=== PATIENT | female | born 1990 | race Caucasian/White ===

== ENCOUNTER 2021-09-10 11:17 | Observation (INO) | payer OTHER, SELFPAY ==
[2021-09-10 11:38] VITALS: BP 135/85; PULSE 54; RESP 18; TEMP 37.2; O2SAT 97; BMI 36.0
[2021-09-10 12:58] LABS: MANUAL DIFF FLAG NO
[2021-09-10 13:01] LABS: Basophils Percent Auto 0.2 % (0-2); Hematocrit 43.3 % (37-47); Hemoglobin 14.7 g/dl (12.0-16.0); Imm Gran Abs Auto 0.05 X10*3/uL (0.00-0.03); Imm Gran Pct Auto 0.3 % (0.0-0.4); Lymphocytes Absolute Auto 2.3 X10*3/uL (1.2-4.9); Lymphocytes Percent Auto 15.9 % (20-40); Mean Corpuscular HGB Conc 33.9 g/dl (31.0-35.0); Mean Corpuscular Hemoglobin 29.4 pg (27.0-33.0); Mean Corpuscular Volume 86.6 fL (80-98); Mean Platelet Volume 11.6 fL (9.4-12.3); Monocytes Absolute Auto 0.9 X10*3/uL (0.1-1.2); Monocytes Percent Auto 6.5 % (2-11); Neutrophils Absolute Auto 11.2 X10*3/uL (2.0-8.3); Neutrophils Percent Auto 77.1 % (45-73); Platelet Count 321 X10*3/uL (160-400); Red Cell Distribution Width 13.2 % (11.0-16.0); White Blood Count 14.5 X10*3/uL (4.8-10.8)
--- NOTE | 2021-09-10 13:04 | ED.NAVMDI ---
HPI - Nausea/Vomiting/Diarrhea General Chief complaint: Nausea/Vomiting/Diarrhea Stated complaint: vomiting, ?uti Time Seen by Provider: 09/10/21 13:02 Source: patient and family (Significant other's) Mode of arrival: ambulatory Limitations: no limitations History of Present Illness HPI Narrative: 31-year-old female came in for evaluation of vomiting for 1 day. Symptoms started with frequency and dysuria, patient treated herself with [id number] medication, UTI symptoms improved then next day patient started feel vomiting, patient has been vomiting for 1 day unable to keep any food or water down, patient declined abdominal pain except for mild epigastric pain only during vomiting, patient also declined fever, diarrhea, headache, photophobia, or chest pain. No sick contacts, no recent travel. Related Data Previous Rx's Medication Instructions Recorded cefuroxime axetil 500 mg tablet 500 mg PO BID #20 tab 09/10/21 ondansetron HCl 4 mg tablet 4 mg PO Q8H PRN #10 tab 09/10/21 (Zofran) Allergies Allergy/AdvReac Type Severity Reaction Status Date / Time No Known Allergies Allergy Unverified 09/10/21 11:38 Review of Systems Review of Systems: All other systems are reviewed and are negative Constitutional: Reports as per HPI and Reports no additional constitutional complaints Eyes: Reports as per HPI and Reports no additional eye complaints Reports system reviewed and no additional complaints, except as documented Cardiovascular: Reports as per HPI and Reports no additional cardiovascular complaints Respiratory: Reports as per HPI and Reports no additional respiratory complaints Gastrointestinal: Reports as per HPI and Reports no additional gastrointestinal complaints Genitourinary: Reports no additional female genitourinary complaints Musculoskeletal: Reports no additional musculoskeletal complaints Skin/Breast: Reports system reviewed and no additional complaints, except as docu Psychiatric: Reports no additional psychiatric complaints Endocrine: Reports no additional endocrine complaints Hematologic/Lymphatic: Reports no additional hematologic/lymphatic complaints Allergic/Immunologic: Reports no additional allergic/immunologic complaints Reports system reviewed and no additional complaints, except as documented and Reports Abnormal speech present [facility] Social History Social History Advance Directives: No Advance Directives Information Provided: No Patient : No Physical Exam Vital Signs: Vital Signs: Last Vital Signs Temp 98.3 F 09/10/21 13:47 Pulse 80 09/10/21 13:47 Resp 16 09/10/21 13:47 BP 155/84 H 09/10/21 13:47 Pulse Ox 99 09/10/21 13:47 Body Mass Index 36.0 Vital signs have been reviewed as appeared to be correct. Blood pressure normal. Heart rate normal. Respiration rate normal. Temperature normal. Oxygen saturation normal. Appearance: Alert. Oriented X3. No acute distress. Head: Normal external exam. Normocephalic. Atraumatic. No Montoya signs noted. No raccoon eyes noted Eyes: PERRLA. EOMI. Conjunctiva and sclera normal. Eyelids normal. ENT: TM's Normal. Pharynx normal. Uvula midline. Dry mucous membranes. No trismus noted. No drooling noted. No muffled voice noted. Neck: Normal inspection. Neck supple. FROM. No adenopathy. Thyroid Normal. No meningeal signs. No neck mass noted. CVS: Normal heart rate and rhythm. Heart sound normal. No murmurs noted. Pulses normal throughout. Respiratory: No respiratory distress. Painless inspiration. Breath sounds normal. No wheezes/rales/rhonchi noted. Chest nontender. No accessory muscle usage noted or decreased air movement noted. Abdomen: Soft and nontender. Bowel sounds normal in all 4 quadrants. No distention noted. No organomegaly noted. No visible injury noted. Back: No CVA tenderness. Full range of motion noted. Skin: Skin warm and dry. Normal skin color. Normal skin turgor. No rashes/lesions/lacerations noted. Extremities: No lower extremity edema. Extremities exhibit normal range of motion. Extremities nontender. Neuro: Oriented X 3. Cranial nerve exam: II-XII are grossly intact No motor deficit. No sensory deficit. Reflexes normal. Course Course Course Narrative: Assessment and plan. 31-year-old female came in for vomiting for 1 day, patient been having symptoms of UTI for 1 week past without treatment, UA is consistent with UTI, patient has no abdominal pain, no flank pain to suggest pyelonephritis, nausea and vomiting is partially improved after multiple doses of antiemetic in the ED and IV hydration, able to tolerate p.o. challenge now. Will discharge the patient with antinausea medication and antibiotic. Reevaluation(s) Reevaluation #1: After patient felt slightly better patient started to vomit again in the ED unable to tolerate p.o. intake, patient needs antibiotic for UTI will start on ceftriaxone IV, patient is not meeting sepsis criteria. Time: 15:35 MDM - Nausea/Vomiting/Diarrhea Lab Data Attestation: I reviewed the patient's lab results. Result diagrams: 09/10/21 12:54 09/10/21 12:54 Labs: Lab Results 09/10/21 09/10/21 09/10/21 Range/Units 12:54 12:54 14:15 WBC 14.5 H (4.8-10.8) X10*3/uL RBC 5.00 (4.20-5.50) X10*6/uL Hgb 14.7 (12.0-16.0) g/dl Hct 43.3 (37-47) % MCV 86.6 (80-98) fL MCH 29.4 (27.0-33.0) pg MCHC 33.9 (31.0-35.0) g/dl RDW 13.2 (11.0-16.0) % Plt Count 321 (160-400) X10*3/uL MPV 11.6 (9.4-12.3) fL Immature Gran % (Auto) 0.3 (0.0-0.4) % Neut % (Auto) 77.1 H (45-73) % Lymph % (Auto) 15.9 L (20-40) % [place] % (Auto) 6.5 (2-11) % Eos % (Auto) 0.0 (0-4) % Baso % (Auto) 0.2 (0-2) % Lymph # (Auto) 2.3 (1.2-4.9) X10*3/uL [place] # (Auto) 0.9 (0.1-1.2) X10*3/uL Eos # (Auto) 0.0 (0.0-0.4) X10*3/uL Baso # (Auto) 0.0 (0.0-0.2) X10*3/uL Abs Immat Gran (auto) 0.05 H (0.00-0.03) X10*3/uL Absolute Neuts (auto) 11.2 H (2.0-8.3) X10*3/uL Absolute Nucleated RBC 0.000 (0.0-0.012) X10*3/uL Nucleated RBC % (auto) 0.0 (0.0-0.2) /100WBC Sodium 137 (135-145) mmol/L Potassium 3.7 (3.3-5.1) mmol/L Chloride 102 (96-108) mmol/L Carbon Dioxide 21 L (22-29) mmol/L Anion Gap 18 (12-20) BUN 15 (9-16) mg/dL Creatinine 0.98 (0.5-1.4) mg/dL Estim Creat Clear Calc 93.1 Estimated GFR > 60 Random Glucose 113 (60-115) mg/dL Calcium 10.1 (8.4-10.2) mg/dL Total Bilirubin 0.9 (0.0-1.0) mg/dL Direct Bilirubin 0.3 (0.0-0.5) mg/dL AST 15 (5-31) U/L ALT 15 (0-31) U/L Alkaline Phosphatase 100 (39-117) U/L Total Protein 8.5 H (6.5-8.0) g/dL Albumin 5.2 H (3.5-5.0) g/dL Lipase 26 (8-78) U/L Urine Color YELLOW Urine Appearance CLEAR Urine pH 6.0 (5.0-8.0) Ur Specific [place] 1.020 (1.005-1.025) Urine Protein 1+ H (NEG-TRACE) MG/DL Urine Glucose (UA) NEG (NEG) MG/DL Urine Ketones 15 (NEG) MG/DL Urine Blood NEG (NEG) Urine Nitrite POS H (NEG) Ur Leukocyte Esterase TRACE H (NEG) Urine RBC 1-4 (0) /HPF Urine WBC 15-29 H (0-4) /HPF Ur Squamous Epith Cells 2+ /LPF Urine Bacteria 2+ /LPF Urine Test (NEGATIVE) 09/10/21 Range/Units 14:15 WBC (4.8-10.8) X10*3/uL RBC (4.20-5.50) X10*6/uL Hgb (12.0-16.0) g/dl Hct (37-47) % MCV (80-98) fL MCH (27.0-33.0) pg MCHC (31.0-35.0) g/dl RDW (11.0-16.0) % Plt Count (160-400) X10*3/uL MPV (9.4-12.3) fL Immature Gran % (Auto) (0.0-0.4) % Neut % (Auto) (45-73) % Lymph % (Auto) (20-40) % [place] % (Auto) (2-11) % Eos % (Auto) (0-4) % Baso % (Auto) (0-2) % Lymph # (Auto) (1.2-4.9) X10*3/uL [place] # (Auto) (0.1-1.2) X10*3/uL Eos # (Auto) (0.0-0.4) X10*3/uL Baso # (Auto) (0.0-0.2) X10*3/uL Abs Immat Gran (auto) (0.00-0.03) X10*3/uL Absolute Neuts (auto) (2.0-8.3) X10*3/uL Absolute Nucleated RBC (0.0-0.012) X10*3/uL Nucleated RBC % (auto) (0.0-0.2) /100WBC Sodium (135-145) mmol/L Potassium (3.3-5.1) mmol/L Chloride (96-108) mmol/L Carbon Dioxide (22-29) mmol/L Anion Gap (12-20) BUN (9-16) mg/dL Creatinine (0.5-1.4) mg/dL Estim Creat Clear Calc Estimated GFR Random Glucose (60-115) mg/dL Calcium (8.4-10.2) mg/dL Total Bilirubin (0.0-1.0) mg/dL Direct Bilirubin (0.0-0.5) mg/dL AST (5-31) U/L ALT (0-31) U/L Alkaline Phosphatase (39-117) U/L Total Protein (6.5-8.0) g/dL Albumin (3.5-5.0) g/dL Lipase (8-78) U/L Urine Color Urine Appearance Urine pH (5.0-8.0) Ur Specific [place] (1.005-1.025) Urine Protein (NEG-TRACE) MG/DL Urine Glucose (UA) (NEG) MG/DL Urine Ketones (NEG) MG/DL Urine Blood (NEG) Urine Nitrite (NEG) Ur Leukocyte Esterase (NEG) Urine RBC (0) /HPF Urine WBC (0-4) /HPF Ur Squamous Epith Cells /LPF Urine Bacteria /LPF Urine Test NEGATIVE (NEGATIVE) Discharge Plan Discharge Clinical Impression: Dehydration, Intractable vomiting, Urinary tract infection Patient Disposition: Admitted As Inpatient Instructions: Urinary Tract Infection in Women (ED) Prescriptions: New cefuroxime axetil 500 mg tablet 500 mg PO BID Qty: 20 RF: 0 ondansetron HCl [Zofran] 4 mg tablet 4 mg PO Q8H PRN (Reason: nausea and vomiting) Qty: 10 RF: 0 Referrals: Kate Queen MD [Primary Care Provider] - 2 days
[2021-09-10] MEDS: ondansetron HCL 4 MG/2 ML VIAL IVPUSH ×2 (13:10→14:41)
[2021-09-10] MEDS: Famotidine/PF 20 MG/2 ML VIAL IVPUSH (13:10)
[2021-09-10] MEDS: 0.9 % Sodium Chloride 1,000 ML 999 ML IVCONT ×2 (13:11→13:13)
[2021-09-10 13:15] LABS: Anion Gap 18 (12-20); Blood Urea Nitrogen 15 mg/dL (9-16); Calcium 10.1 mg/dL (8.4-10.2); Carbon Dioxide 21 mmol/L (22-29); Chloride 102 mmol/L (96-108); Creatinine Clr Calc Pharmacy 93.1; Estimated Glomerular Filt Rate > 60; Glucose Random 113 mg/dL (60-115); Potassium 3.7 mmol/L (3.3-5.1); Sodium 137 mmol/L (135-145)
[2021-09-10 13:44] VITALS: BP 155/84; PULSE 80; RESP 16; TEMP 36.8; O2SAT 99
[2021-09-10 13:47] VITALS: BP 155/84; PULSE 80; RESP 16; TEMP 36.8; O2SAT 99
[2021-09-10 14:03] LABS: Alanine Aminotransferase 15 U/L (0-31); Albumin Level 5.2 g/dL (3.5-5.0); Alkaline Phosphatase 100 U/L (39-117); Aspartate Amino Transferase 15 U/L (5-31); Bilirubin Direct 0.3 mg/dL (0.0-0.5); Bilirubin Total 0.9 mg/dL (0.0-1.0); Lipase 26 U/L (8-78); Total Protein 8.5 g/dL (6.5-8.0)
[2021-09-10 14:26] LABS: Appearance Urine CLEAR; Color Urine YELLOW; Glucose Urine UA NEG (NEG); Leukocyte Esterase Urine TRACE (NEG); Nitrite Urine POS (NEG); UACC Culture Trigger YES; Urine Blood NEG (NEG); Urine Ketones 15 MG/DL (NEG); Urine Protein 1+ MG/DL (NEG-TRACE)
[2021-09-10 14:27] LABS: UPreg QC Valid YES; Urine Pregnancy NEGATIVE (NEGATIVE)
[2021-09-10 14:43] LABS: Bacteria Urine 2+ /LPF; Squamous Epithelial Cell Urine 2+ /LPF
--- NOTE | 2021-09-10 15:53 | PM.IMHP ---
History of Present Illness Date of Service: 09/10/21 Chief Complaint: nausea and vomitting 31F presented with nausea, intractable vomiting, inability to tolerate p.o., abdominal pain associated with vomiting. Patient states that about 1 week ago she was experiencing dysuria and urinary frequency, took [id number] medications with some resolution of symptoms. Then day prior to presentation started having severe nausea and vomiting was unable to take anything by mouth. Continue to feel away today so she came to ED. patient also notes diffuse abdominal pain while retching. Denies any blood in vomit, denies fever, chills, shortness of breath, chest pain. Review of Systems Review of Systems: Constitutional: Denies fever, denies Chills Eyes: denies blurry vision ENT: denies sore throat CVS: denies chest pain Respiratory: Denies dyspnea GI: abdominal pain : dysuria MSK: denies neck pain Skin: denies rash Neuro: denies specific motor weakness Psych: denies suicidal ideation Endocrine: denies heat/cold intolerance Hematologic: denies easy bleeding Allergy: denies hives [facility] Medical History Nephrolithiasis Pertinent family history: grandfather had CAD Social History (Updated 09/10/21 @ 15:55 by Juan Diego Philip MD) Alcohol intake: never Patient Tobacco Use Status: Never used Tobacco Substance Use Type: Marijuana Advance Directives: No Advance Directives Information Provided: No Patient : No Meds Allergies Allergy/AdvReac Type Severity Reaction Status Date / Time No Known Allergies Allergy Unverified 09/10/21 11:38 Physical Exam Vital Signs and Narrative: Vital Signs: Last Vital Signs Temp 98.3 F 09/10/21 13:47 Pulse 80 09/10/21 13:47 Resp 16 09/10/21 13:47 BP 155/84 H 09/10/21 13:47 Pulse Ox 99 09/10/21 13:47 Body Mass Index 36.0 General: nauseous, vomitting HEENT: atraumatic Neck: normal to visual inspection CVS: S1, S2, RRR Resp: CTA bilateral Chest: non tender GI: soft, non tender, non distended : no CVA tenderness Skin: no rashes Extremities: no edema Neuro: Oriented X3, grossly intact Psych: cooperative Results Labs CBC and Chem 7: 09/10/21 12:54 09/10/21 12:54 Labs: Laboratory Results - last 24 hr 09/10/21 09/10/21 09/10/21 12:54 12:54 14:15 MCV 86.6 MCH 29.4 MCHC 33.9 RDW 13.2 Plt Count 321 MPV 11.6 Immature Gran % (Auto) 0.3 Neut % (Auto) 77.1 H Lymph % (Auto) 15.9 L [place] % (Auto) 6.5 Eos % (Auto) 0.0 Baso % (Auto) 0.2 Lymph # (Auto) 2.3 [place] # (Auto) 0.9 Eos # (Auto) 0.0 Baso # (Auto) 0.0 Abs Immat Gran (auto) 0.05 H Absolute Neuts (auto) 11.2 H Absolute Nucleated RBC 0.000 Nucleated RBC % (auto) 0.0 Anion Gap 18 Estim Creat Clear Calc 93.1 Estimated GFR > 60 Random Glucose 113 Calcium 10.1 Total Bilirubin 0.9 Direct Bilirubin 0.3 AST 15 ALT 15 Alkaline Phosphatase 100 Total Protein 8.5 H Albumin 5.2 H Lipase 26 Urine Color YELLOW Urine Appearance CLEAR Urine pH 6.0 Ur Specific [place] 1.020 Urine Protein 1+ H Urine Glucose (UA) NEG Urine Ketones 15 Urine Blood NEG Urine Nitrite POS H Ur Leukocyte Esterase TRACE H Urine RBC 1-4 Urine WBC 15-29 H Ur Squamous Epith Cells 2+ Urine Bacteria 2+ Urine Test 09/10/21 14:15 MCV MCH MCHC RDW Plt Count MPV Immature Gran % (Auto) Neut % (Auto) Lymph % (Auto) [place] % (Auto) Eos % (Auto) Baso % (Auto) Lymph # (Auto) [place] # (Auto) Eos # (Auto) Baso # (Auto) Abs Immat Gran (auto) Absolute Neuts (auto) Absolute Nucleated RBC Nucleated RBC % (auto) Anion Gap Estim Creat Clear Calc Estimated GFR Random Glucose Calcium Total Bilirubin Direct Bilirubin AST ALT Alkaline Phosphatase Total Protein Albumin Lipase Urine Color Urine Appearance Urine pH Ur Specific [place] Urine Protein Urine Glucose (UA) Urine Ketones Urine Blood Urine Nitrite Ur Leukocyte Esterase Urine RBC Urine WBC Ur Squamous Epith Cells Urine Bacteria Urine Test NEGATIVE Assessment and Plan (1) Dehydration: Status: Acute (2) Intractable vomiting: Status: Acute (3) Urinary tract infection: Status: Acute 31F presented with dehyrdation due to nasuea and vomitting Dehydration due to nausea vomiting Differential includes cannaboid associated emesis vs viral gastritis vs related to UTI iv fluids monitor bmp reglan protonix UTI rocephin Quality Stroke Does the patient have a stroke diagnosis?: No VTE Prior VTE?: No VTE Risk Level:: Medical - low VTE Device Contraindication: Treatment Not Indicated VTE Drug Contraindication: Treatment Not Indicated
[2021-09-10 16:20] LABS: Lactic Acid 1.3 mmol/L (0.5-2.0)
[2021-09-10] MEDS: cefTRIAXone sodium 1 GM in 0.9 % Sodium Chloride 50 ML IV (16:31)
[2021-09-10] MEDS: Lactated Ringers 1,000 ML 100 ML IVCONT (16:31)
[2021-09-10] MEDS: 0.9 % Sodium Chloride Flush 3 ML SYRINGE IVFLUSH (16:32)
[2021-09-10] MEDS: Metoclopramide HCl 10 MG/2 ML VIAL 5 MG IVPUSH ×2 (16:34→22:40)
[2021-09-10 16:46] LABS: COVID-19 Test Negative (Negative); IDNOW Serial# 9DD0AD1C
--- NOTE | 2021-09-10 16:48 | PC.NURSE ---
Pt alert and oriented x4, calm and cooperative. Pt states pain has improved, states nausea persists. Pt received medications and resting in stretcher at this time. IV intact. Vitals stable. Pt sleeping in stretcher at this time, will continue to monitor.
--- NOTE | 2021-09-10 17:03 | MHC.CM.PN ---
CM met with observation patient with bed assignment 354. JOSE LUIS reviewed and signed 09/10/2021@1640. No HCP on file. Education provided, patient declined to complete at this time. Pt fully vaccinated with Moderna. Lives with . Uses no DME or Services. Employed. D/C plan is home without services. Transportation home by family.
--- NOTE | 2021-09-10 19:25 | PC.NURSE ---
Pt alert and oriented x4, calm and cooperative. pt states pain and nausea improved. IV intact infusing fluids at this time. Vitals stable. Pt aware of being admitted, called for report unable to give waiting for call back.
[2021-09-10 19:30] VITALS: BP 139/69; PULSE 45; RESP 20; TEMP 37.2; O2SAT 98
[2021-09-10 19:50] VITALS: BP 146/74; PULSE 52; RESP 15; TEMP 37.2; O2SAT 98
[2021-09-10 23:33] VITALS: BP 136/78; PULSE 50; RESP 17; TEMP 37.2; O2SAT 97
[2021-09-11] MEDS: diphenhydrAMINE HCL 25 MG TABLET PO (03:23)
[2021-09-11] MEDS: Lactated Ringers 1,000 ML 100 ML IVCONT ×3 (03:23→22:29)
[2021-09-11 04:00] VITALS: BP 150/79; PULSE 52; RESP 17; TEMP 37.1; O2SAT 99
[2021-09-11] MEDS: Pantoprazole Sodium 40 MG/10 ML VIAL IVPUSH (05:40)
[2021-09-11] MEDS: Metoclopramide HCl 10 MG/2 ML VIAL 5 MG IVPUSH ×3 (05:44→18:20)
[2021-09-11 06:21] LABS: Hematocrit 36.8 % (37-47); Hemoglobin 12.7 g/dl (12.0-16.0); Mean Corpuscular HGB Conc 34.5 g/dl (31.0-35.0); Mean Corpuscular Hemoglobin 29.8 pg (27.0-33.0); Mean Corpuscular Volume 86.4 fL (80-98); Mean Platelet Volume 12.2 fL (9.4-12.3); Platelet Count 244 X10*3/uL (160-400); Red Blood Count 4.26 X10*6/uL (4.20-5.50); Red Cell Distribution Width 13.2 % (11.0-16.0); White Blood Count 13.7 X10*3/uL (4.8-10.8)
[2021-09-11 06:43] LABS: Anion Gap 15 (12-20); Blood Urea Nitrogen 13 mg/dL (9-16); Carbon Dioxide 22 mmol/L (22-29); Chloride 105 mmol/L (96-108); Creatinine Clr Calc Pharmacy 111.3; Estimated Glomerular Filt Rate > 60; Glucose Random 107 mg/dL (60-115); Sodium 138 mmol/L (135-145)
[2021-09-11 07:27] VITALS: BP 137/70; PULSE 50; RESP 20; TEMP 37.1; O2SAT 97
[2021-09-11] MEDS: 0.9 % Sodium Chloride Flush 3 ML SYRINGE IVFLUSH (08:24)
--- NOTE | 2021-09-11 10:13 | PC.NURSE ---
Skin assessment completed. No skin issues or open areas noted at this time.
[2021-09-11 12:00] VITALS: BP 146/76; PULSE 50; RESP 20; TEMP 36.9; O2SAT 99
--- NOTE | 2021-09-11 13:05 | HO.PM.IMPN ---
Subjective Subjective Date of Service: 09/11/21 Interval History: cc: vomitting interval history: not tolerating po Cardiovascular Cardiovascular: Reports no additional cardiovascular complaints Respiratory Respiratory: Reports no additional respiratory complaints Physical Exam Vital Signs: Vital Signs: Last Vital Signs Temp 98.5 F 09/11/21 12:00 Pulse 50 09/11/21 12:00 Resp 20 09/11/21 12:00 BP 146/76 H 09/11/21 12:00 Pulse Ox 99 09/11/21 12:00 Body Mass Index 36.0 General: AO X 3, nasueous appearing Resp: CTA bilateral, no accessory muscles used CVS: S1,S2,RRR GI: soft, non tender, non distended Neuro: motor grossly intact, alert Psych: appropriate affect, appropriate insight Objective Data Active Medications Lactated Ringer's (Lr) 1,000 mls @ 100 mls/hr IVCONT .Q10H [facility] Last Admin: 09/11/21 11:23 Dose: Not Given Documented by: SHARON Non-Admin Reason: IV Running Ceftriaxone Sodium 1 gm/ (Sodium Chloride) 50 mls @ 100 mls/hr IV Q24H [facility] Metoclopramide HCl (Metoclopramide Hcl 10 Mg/2 Ml Vial) 5 mg IVPUSH Q6H PRN PRN Reason: nausea Last Admin: 09/11/21 12:00 Dose: 5 mg Documented by: SHARON Pantoprazole Sodium (Pantoprazole Sodium 40 Mg/10 Ml Vial) 40 mg IVPUSH DAILY@0630 [facility] Last Admin: 09/11/21 05:40 Dose: 40 mg Documented by: YENI Sodium Chloride (0.9 % Sodium Chloride Flush 3 Ml Syringe) 3 ml IVFLUSH QSHIFT [facility] Last Admin: 09/11/21 08:24 Dose: 3 ml Documented by: SHARON Labs CBC & Chem 7: 09/11/21 05:56 09/11/21 05:56 Labs: Laboratory Results - last 24 hr 09/10/21 09/10/21 09/10/21 12:54 14:15 14:15 MCV MCH MCHC RDW Plt Count MPV Absolute Nucleated RBC Nucleated RBC % (auto) Anion Gap 18 Estim Creat Clear Calc 93.1 Estimated GFR > 60 Random Glucose 113 Lactic Acid Calcium 10.1 Total Bilirubin 0.9 Direct Bilirubin 0.3 AST 15 ALT 15 Alkaline Phosphatase 100 Total Protein 8.5 H Albumin 5.2 H Lipase 26 Urine Color YELLOW Urine Appearance CLEAR Urine pH 6.0 Ur Specific [place] 1.020 Urine Protein 1+ H Urine Glucose (UA) NEG Urine Ketones 15 Urine Blood NEG Urine Nitrite POS H Ur Leukocyte Esterase TRACE H Urine RBC 1-4 Urine WBC 15-29 H Ur Squamous Epith Cells 2+ Urine Bacteria 2+ Urine Test NEGATIVE COVID-19 ([facility]) COVID-19 Clin Com 09/10/21 09/10/21 09/11/21 16:01 16:25 05:56 MCV 86.4 MCH 29.8 MCHC 34.5 RDW 13.2 Plt Count 244 MPV 12.2 Absolute Nucleated RBC 0.000 Nucleated RBC % (auto) 0.0 Anion Gap Estim Creat Clear Calc Estimated GFR Random Glucose Lactic Acid 1.3 Calcium Total Bilirubin Direct Bilirubin AST ALT Alkaline Phosphatase Total Protein Albumin Lipase Urine Color Urine Appearance Urine pH Ur Specific [place] Urine Protein Urine Glucose (UA) Urine Ketones Urine Blood Urine Nitrite Ur Leukocyte Esterase Urine RBC Urine WBC Ur Squamous Epith Cells Urine Bacteria Urine Test COVID-19 ([facility]) Negative COVID-19 Clin Com [employer] 09/11/21 05:56 MCV MCH MCHC RDW Plt Count MPV Absolute Nucleated RBC Nucleated RBC % (auto) Anion Gap 15 Estim Creat Clear Calc 111.3 Estimated GFR > 60 Random Glucose 107 Lactic Acid Calcium 9.0 D Total Bilirubin Direct Bilirubin AST ALT Alkaline Phosphatase Total Protein Albumin Lipase Urine Color Urine Appearance Urine pH Ur Specific [place] Urine Protein Urine Glucose (UA) Urine Ketones Urine Blood Urine Nitrite Ur Leukocyte Esterase Urine RBC Urine WBC Ur Squamous Epith Cells Urine Bacteria Urine Test COVID-19 ([facility]) COVID-19 Clin Com Microbiology Microbiology Results: Microbiology 09/10/21 Unknown Urine Culture - Preliminary Urine clean catch - Urine hughes top Gram negative gail Assessment and Plan (1) Dehydration: Status: Acute Assessment and Plan: 31F presented with dehyrdation due to nasuea and vomitting Dehydration due to nausea vomiting Differential includes cannaboid associated emesis vs viral gastritis vs related to UTI still not taking po continue iv fluids monitor bmp reglan protonix UTI rocephin urine growing gnr follow up culture Quality Stroke Does the patient have a stroke diagnosis?: No VTE Prior VTE?: No VTE Risk Level:: Medical - low VTE Device Contraindication: Treatment Not Indicated VTE Drug Contraindication: Treatment Not Indicated
[2021-09-11] MEDS: cefTRIAXone sodium 1 GM in 0.9 % Sodium Chloride 50 ML IV (14:54)
[2021-09-11 15:16] VITALS: BP 155/86; PULSE 57; RESP 16; TEMP 36.8; O2SAT 99
[2021-09-11] MEDS: ondansetron HCL 4 MG/2 ML VIAL IVPUSH ×2 (15:36→21:26)
[2021-09-11 19:15] VITALS: BP 150/88; PULSE 48; RESP 16; TEMP 36.8; O2SAT 97
[2021-09-11] MEDS: diphenhydrAMINE HCL 50 MG/ML VIAL 25 MG IVPUSH (20:35)
--- NOTE | 2021-09-11 22:59 | MHC.PIE ---
p; pt c/o insomnia. asking for Benadryl. note; pt reports wanting iv Benadryl, not po d/t nausea i; dr turner notified; new ordre Benadryl iv now e; will cont to monitor
[2021-09-11 23:55] VITALS: BP 136/83; PULSE 56; RESP 17; TEMP 37.2; O2SAT 98
[2021-09-12] MEDS: Metoclopramide HCl 10 MG/2 ML VIAL 5 MG IVPUSH ×2 (00:37→07:36)
[2021-09-12 03:28] VITALS: BP 153/85; PULSE 56; RESP 17; TEMP 37.2; O2SAT 100
[2021-09-12] MEDS: ondansetron HCL 4 MG/2 ML VIAL IVPUSH ×2 (03:40→11:33)
[2021-09-12] MEDS: Pantoprazole Sodium 40 MG/10 ML VIAL IVPUSH (05:52)
[2021-09-12 05:56] LABS: Hematocrit 37.1 % (37-47); Hemoglobin 12.3 g/dl (12.0-16.0); Mean Corpuscular HGB Conc 33.2 g/dl (31.0-35.0); Mean Corpuscular Hemoglobin 28.9 pg (27.0-33.0); Mean Corpuscular Volume 87.3 fL (80-98); Platelet Count 210 X10*3/uL (160-400); Red Blood Count 4.25 X10*6/uL (4.20-5.50); Red Cell Distribution Width 12.7 % (11.0-16.0); White Blood Count 10.4 X10*3/uL (4.8-10.8)
[2021-09-12 06:29] LABS: Anion Gap 14 (12-20); Blood Urea Nitrogen 9 mg/dL (9-16); Calcium 9.1 mg/dL (8.4-10.2); Carbon Dioxide 22 mmol/L (22-29); Chloride 102 mmol/L (96-108); Estimated Glomerular Filt Rate > 60; Glucose Fasting 98 mg/dL (60-99); Potassium 3.7 mmol/L (3.3-5.1); Sodium 134 mmol/L (135-145)
[2021-09-12] MEDS: 0.9 % Sodium Chloride Flush 3 ML SYRINGE IVFLUSH (07:36)
[2021-09-12 07:39] VITALS: BP 158/76; PULSE 51; RESP 18; TEMP 36.3; O2SAT 98
[2021-09-12] MEDS: Lactated Ringers 1,000 ML 100 ML IVCONT (09:05)
[2021-09-12] MEDS: Acetaminophen 325 MG TABLET 650 MG PO (09:46)
[2021-09-12 11:44] VITALS: BP 138/81; PULSE 51; RESP 18; TEMP 36.4; O2SAT 98
--- NOTE | 2021-09-12 12:05 | MHC.CM.PN ---
IF TOLERATING DIET, CAN DC HOME TODAY - SELF CARE.
--- NOTE | 2021-09-12 14:26 | PM.DS ---
DS: Providers Provider Date of Service: 09/12/21 Date of admission: 09/10/21 15:50 Primary care physician: Kate Queen MD DS: Diagnosis Discharge Diagnosis (1) Dehydration: Status: Acute DS: Summary Hospital Course Hospital Course: Patient was observed for intractable nausea vomiting. She was supported with IV fluids and antiemetics. She was also treated for urinary tract infection, urine culture grew pansensitive E coli. She was treated with ceftriaxone and will be transitioned to oral Ceftin. Her symptoms improved and she was able to tolerate solid diet. She has been counseled on discontinuing marijuana use. She will be discharged home. Time Spent with Patient Time attestation: Total time spent providing and/or coordinating discharge services: Discharge coordination time: Greater than 30 minutes Quality: Stroke Does the patient have a stroke diagnosis?: No Physical Exam Vital Signs: Vital Signs: Last Vital Signs Temp 97.6 F 09/12/21 11:44 Pulse 51 09/12/21 11:44 Resp 18 09/12/21 11:44 BP 138/81 09/12/21 11:44 Pulse Ox 98 09/12/21 11:44 Body Mass Index 36.0 General: AO X 3, no acute distress Resp: CTA bilateral, no accessory muscles used CVS: S1,S2,RRR GI: soft, non tender, non distended Neuro: motor grossly intact, alert Psych: appropriate affect, appropriate insight DS: Data Data Completed and Pending Labs on day of discharge: Laboratory Results - last 24 hr 09/12/21 09/12/21 05:37 05:37 WBC 10.4 RBC 4.25 Hgb 12.3 Hct 37.1 MCV 87.3 MCH 28.9 MCHC 33.2 RDW 12.7 Plt Count 210 MPV 12.0 Absolute Nucleated RBC 0.000 Nucleated RBC % (auto) 0.0 Sodium 134 L Potassium 3.7 Chloride 102 Carbon Dioxide 22 Anion Gap 14 BUN 9 Creatinine 0.76 Estim Creat Clear Calc 120.0 Estimated GFR > 60 Fasting Glucose 98 Calcium 9.1 Preliminary micro results at discharge 09/10/21 16:15 Blood Culture - Preliminary Blood - Venous No growth after 24 hours. 09/10/21 16:01 Blood Culture - Preliminary Blood - Venous No growth after 24 hours. Discharge Plan Discharge Patient Disposition: Home, Self-Care Referrals: Kate Queen MD [Primary Care Provider] - 2 days Discharge Medications: New cefuroxime axetil 500 mg tablet 500 mg PO BID Qty: 20 RF: 0 ondansetron HCl [Zofran] 4 mg tablet 4 mg PO Q8H PRN (Reason: nausea and vomiting) Qty: 10 RF: 0 Discharge Orders: Discharge Order (Routine); Ordered 09/12/21 Ordered By: Juan Diego Philip Diet: advance to usual diet Activity on Discharge: As tolerated Stand Alone Forms: Patient Portal Discharge page Care Plan Goals: reocvery Health Concerns: vomitting Plan of Treatment: finish ceftin course, avoid marijuana Assessment: see above Patient Instructions: Urinary Tract Infection in Women (ED)
[2021-09-12] MEDS: cefTRIAXone sodium 1 GM in 0.9 % Sodium Chloride 50 ML IV (14:44)
== END 2021-09-12 15:41 | disposition home or self-care (01) ==
LOC: HO.ED 15:36 → HO.EDOVER 15:58 → HO.S3 16:21
PROVIDERS: Admitting Provider Internal Medicine; Emergency Provider Emergency Medicine; PCP Internal Medicine; Visit Provider Internal Medicine
DX: E86.0 Dehydration (principal); R11.10 Vomiting, unspecified; N39.0 Urinary tract infection, site not specified; B96.20 Unspecified Escherichia coli [E. coli] as the cause of diseases classified elsewhere; F12.10 Cannabis abuse, uncomplicated; Z20.822 Contact with and (suspected) exposure to COVID-19; Z71.51 Drug abuse counseling and surveillance of drug abuser
CPT/HCPCS: 36415; 80048; 80076; 81001; 81025; 83605; 83690; 85025; 85027; 87040; 87086; 87088; 87186; 87635; 96361; 96365; 96366; 96375; 96376; 99218; 99225; 99285; J0696; J1200; J2405; J2765; Q0163

== ENCOUNTER 2021-09-14 10:43 | Observation (INO) | payer OTHER, SELFPAY ==
[2021-09-14 10:49] VITALS: BP 143/84; PULSE 52; RESP 18; TEMP 36.8; O2SAT 99; BMI 33.3
[2021-09-14 12:30] LABS: MANUAL DIFF FLAG NO
--- NOTE | 2021-09-14 12:33 | ED_ITS ---
HPI - Nausea/Vomiting/Diarrhea General Chief complaint: Nausea/Vomiting/Diarrhea Stated complaint: vomiting Time Seen by Provider: 09/14/21 12:31 Source: patient Mode of arrival: ambulatory Limitations: no limitations History of Present Illness HPI Narrative: A 31-year-old female who was just hospitalized recently for intractable vomiting and UTI. Patient came in for persistent vomiting despite using Zofran at home, patient has been taking her antibiotic for UTI and able to keep it down, otherwise unable to keep anything else down, the nausea and vomiting is associated with generalized abdominal soreness, no fever, no chills. Related Data Previous Rx's Medication Instructions Recorded cefuroxime axetil 500 mg tablet 500 mg PO BID #20 tab 09/10/21 ondansetron HCl 4 mg tablet 4 mg PO Q8H PRN #10 tab 09/10/21 (Zofran) Allergies Allergy/AdvReac Type Severity Reaction Status Date / Time No Known Allergies Allergy Unverified 09/10/21 11:38 Review of Systems Review of Systems: All other systems are reviewed and are negative Constitutional: Reports as per HPI and Reports no additional constitutional complaints Eyes: Reports as per HPI and Reports no additional eye complaints Reports system reviewed and no additional complaints, except as documented Cardiovascular: Reports as per HPI and Reports no additional cardiovascular complaints Respiratory: Reports as per HPI and Reports no additional respiratory complaints Gastrointestinal: Reports as per HPI and Reports no additional gastrointestinal complaints Genitourinary: Reports no additional female genitourinary complaints Musculoskeletal: Reports no additional musculoskeletal complaints Skin/Breast: Reports system reviewed and no additional complaints, except as docu Psychiatric: Reports no additional psychiatric complaints Endocrine: Reports no additional endocrine complaints Hematologic/Lymphatic: Reports no additional hematologic/lymphatic complaints Allergic/Immunologic: Reports no additional allergic/immunologic complaints Reports system reviewed and no additional complaints, except as documented and Reports Abnormal speech present FOR[facility]LY [facility] Past Medical History Medical History Nephrolithiasis Social History Social History Alcohol intake: never Patient Tobacco Use Status: Never used Tobacco Substance Use Type: Marijuana Advance Directives: No Advance Directives Information Provided: No Patient : No service: No Current occupational status: employed Physical Exam Vital Signs: Vital Signs: Last Vital Signs Temp 98.3 F 09/14/21 10:49 Pulse 52 09/14/21 10:49 Resp 18 09/14/21 10:49 BP 143/84 H 09/14/21 10:49 Pulse Ox 99 09/14/21 10:49 Body Mass Index 33.3 Vital signs have been reviewed as appeared to be correct. Blood pressure normal. Heart rate normal. Respiration rate normal. Temperature normal. Oxygen saturation normal. Appearance: Alert. Oriented X3. No acute distress. Head: Normal external exam. Normocephalic. Atraumatic. No [place] signs noted. No raccoon eyes noted Eyes: PERRLA. EOMI. Conjunctiva and sclera normal. Eyelids normal. ENT: TM's Normal. Pharynx normal. Uvula midline. Moist mucous membranes. No trismus noted. No drooling noted. No muffled voice noted. Neck: Normal inspection. Neck supple. FROM. No adenopathy. Thyroid Normal. No meningeal signs. No neck mass noted. CVS: Normal heart rate and rhythm. Heart sound normal. No murmurs noted. Pulses normal throughout. Respiratory: No respiratory distress. Painless inspiration. Breath sounds normal. No wheezes/rales/rhonchi noted. Chest nontender. No accessory muscle usage noted or decreased air movement noted. Abdomen: Soft and nontender. Bowel sounds normal in all 4 quadrants. No distention noted. No organomegaly noted. No visible injury noted. Back: No CVA tenderness. Full range of motion noted. Skin: Skin warm and dry. Normal skin color. Normal skin turgor. No rashes/lesions/lacerations noted. Extremities: No lower extremity edema. Extremities exhibit normal range of motion. Extremities nontender. Neuro: Oriented X 3. Cranial nerve exam: II-XII are grossly intact No motor deficit. No sensory deficit. Reflexes normal. Course Course Course Narrative: Assessment and plan. 31 years old female recently hospitalized for dehydration and intractable vomiting with UTI, patient returned because unable to keep oral challenge including antibiotic. Patient received hydration and several anti emetic medication with no improvement, will admit for IV hydration and anti emetic. MDM - Nausea/Vomiting/Diarrhea Medical Records Attestation: I reviewed the patient's medical records. Lab Data Attestation: I reviewed the patient's lab results. Result diagrams: 09/14/21 12:24 09/14/21 12:24 Labs: Lab Results 09/14/21 09/14/21 09/14/21 Range/Units 12:24 12:24 14:10 WBC 10.9 H (4.8-10.8) X10*3/uL RBC 5.03 (4.20-5.50) X10*6/uL Hgb 14.6 (12.0-16.0) g/dl Hct 42.7 (37.0-47.0) % MCV 84.9 (80.0-98.0) fL MCH 29.0 (27.0-33.0) pg MCHC 34.2 (31.0-35.0) g/dl RDW 12.7 (11.0-16.0) % Plt Count 275 (160-400) X10*3/uL MPV 11.9 (9.4-12.3) fL Immature Gran % (Auto) 0.6 H (0.0-0.4) % Neut % (Auto) 78.3 H (45-73) % Lymph % (Auto) 15.5 L (20-40) % [place] % (Auto) 5.3 (2-11) % Eos % (Auto) 0.1 (0-4) % Baso % (Auto) 0.2 (0-2) % Lymph # (Auto) 1.7 (1.2-4.9) X10*3/uL [place] # (Auto) 0.6 (0.1-1.2) X10*3/uL Eos # (Auto) 0.0 (0.0-0.4) X10*3/uL Baso # (Auto) 0.0 (0.0-0.2) X10*3/uL Abs Immat Gran (auto) 0.06 H (0.00-0.03) X10*3/uL Absolute Neuts (auto) 8.54 H (2.0-8.3) x10*3/uL Absolute Nucleated RBC 0.000 (0.0-0.012) X10*3/uL Nucleated RBC % (auto) 0.0 (0.0-0.2) /100WBC Sodium 135 (135-145) mmol/L Potassium 3.5 (3.3-5.1) mmol/L Chloride 100 (96-108) mmol/L Carbon Dioxide 22 (22-29) mmol/L Anion Gap 17 (12-20) BUN 10 (9-16) mg/dL Creatinine 0.89 (0.5-1.4) mg/dL Estim Creat Clear Calc 98.3 Estimated GFR > 60 Random Glucose 95 (60-115) mg/dL Calcium 9.6 (8.4-10.2) mg/dL Urine Color YELLOW Urine Appearance CLEAR Urine pH 6.5 (5.0-8.0) Ur Specific [place] 1.020 (1.005-1.025) Urine Protein NEG (NEG-TRACE) MG/DL Urine Glucose (UA) NEG (NEG) MG/DL Urine Ketones >=80 (NEG) MG/DL Urine Blood NEG (NEG) Urine Nitrite NEG (NEG) Ur Leukocyte Esterase NEG (NEG) Discharge Plan Discharge Clinical Impression: Dehydration, Intractable vomiting, Urinary tract infection Patient Disposition: Admitted As Inpatient
[2021-09-14 12:37] LABS: Basophils Percent Auto 0.2 % (0-2); Eosinophils Percent Auto 0.1 % (0-4); Hematocrit 42.7 % (37.0-47.0); Hemoglobin 14.6 g/dl (12.0-16.0); Imm Gran Abs Auto 0.06 X10*3/uL (0.00-0.03); Imm Gran Pct Auto 0.6 % (0.0-0.4); Lymphocytes Absolute Auto 1.7 X10*3/uL (1.2-4.9); Lymphocytes Percent Auto 15.5 % (20-40); Mean Corpuscular HGB Conc 34.2 g/dl (31.0-35.0); Mean Corpuscular Volume 84.9 fL (80.0-98.0); Mean Platelet Volume 11.9 fL (9.4-12.3); Monocytes Absolute Auto 0.6 X10*3/uL (0.1-1.2); Monocytes Percent Auto 5.3 % (2-11); Neutrophils Absolute Auto 8.54 x10*3/uL (2.0-8.3); Neutrophils Percent Auto 78.3 % (45-73); Platelet Count 275 X10*3/uL (160-400); Red Blood Count 5.03 X10*6/uL (4.20-5.50); Red Cell Distribution Width 12.7 % (11.0-16.0); White Blood Count 10.9 X10*3/uL (4.8-10.8)
[2021-09-14 12:49] LABS: Anion Gap 17 (12-20); Blood Urea Nitrogen 10 mg/dL (9-16); Calcium 9.6 mg/dL (8.4-10.2); Carbon Dioxide 22 mmol/L (22-29); Chloride 100 mmol/L (96-108); Creatinine Clr Calc Pharmacy 98.3; Estimated Glomerular Filt Rate > 60; Glucose Random 95 mg/dL (60-115); Potassium 3.5 mmol/L (3.3-5.1); Sodium 135 mmol/L (135-145)
[2021-09-14] MEDS: Lidocaine HCl Viscous 2 % 15 ML SOLUTION MUCOUS MEM (12:58)
[2021-09-14] MEDS: Magnesium Hydrox/Alum Hydrox 30 ML ORAL.SUSP PO (12:58)
[2021-09-14] MEDS: ondansetron HCL 4 MG/2 ML VIAL IVPUSH (12:59)
[2021-09-14] MEDS: LORazepam 2 MG/ML VIAL 0.5 MG IVPUSH (13:01)
[2021-09-14] MEDS: 0.9 % Sodium Chloride 1,000 ML 999 ML IVCONT ×2 (13:01→15:12)
[2021-09-14 14:20] LABS: Appearance Urine CLEAR; Color Urine YELLOW; Glucose Urine UA NEG (NEG); Leukocyte Esterase Urine NEG (NEG); Nitrite Urine NEG (NEG); PH 6.5 (5.0-8.0); Urine Blood NEG (NEG); Urine Ketones >=80 MG/DL (NEG); Urine Protein NEG (NEG-TRACE)
[2021-09-14] MEDS: Metoclopramide HCl 10 MG/2 ML VIAL IVPUSH (15:10)
[2021-09-14] MEDS: Pantoprazole Sodium 40 MG/10 ML VIAL IVPUSH (15:11)
[2021-09-14 15:13] VITALS: BP 128/80; PULSE 53; RESP 18; O2SAT 99
--- NOTE | 2021-09-14 15:29 | PM.IMHP ---
History of Present Illness Date of Service: 09/14/21 Chief Complaint: Nausea vomiting 31-year-old female presented with nausea vomiting. Patient was discharged from [facility] on 09/12/2021 after hospitalization for intractable nausea and vomiting and urinary tract infection. At that time patient had improved and was able to tolerate solid diet. Patient reports that at 1st when she went home she was doing okay, but then nausea vomiting returned and she was unable to keep anything down. Therefore, she came back to the ED. in the ED she received antiemetics but is still having trouble keeping anything down therefore will be readmitted. She denies any fever chills, dysuria Review of Systems Review of Systems: Constitutional: Denies fever, denies Chills Eyes: denies blurry vision ENT: denies sore throat CVS: denies chest pain Respiratory: Denies dyspnea GI: no abdominal pain : denies dysuria MSK: denies neck pain Skin: denies rash Neuro: denies specific motor weakness Psych: denies suicidal ideation Endocrine: denies heat/cold intolerance Hematologic: denies easy bleeding Allergy: denies hives PMFSH Medical History Nephrolithiasis Pertinent family history: denies history of CAD Social History Alcohol intake: never Patient Tobacco Use Status: Never used Tobacco Substance Use Type: Marijuana Advance Directives: No Advance Directives Information Provided: No Patient : No service: No Current occupational status: employed Meds Allergies Allergy/AdvReac Type Severity Reaction Status Date / Time No Known Allergies Allergy Unverified 09/10/21 11:38 Active Medications: Current Medications Sodium Chloride (Ns) 1,000 mls @ 999 mls/hr IVCONT .Q1H1M SENA Stop: 09/14/21 16:00 Last Admin: 09/14/21 15:12 Dose: 999 mls/hr Documented by: Physical Exam Vital Signs and Narrative: Vital Signs: Last Vital Signs Temp 98.3 F 09/14/21 10:49 Pulse 53 09/14/21 15:13 Resp 18 09/14/21 15:13 BP 128/80 09/14/21 15:13 Pulse Ox 99 09/14/21 15:13 Body Mass Index 33.3 General: no acute distress HEENT: atraumatic Neck: normal to visual inspection CVS: S1, S2, RRR Resp: CTA bilateral Chest: non tender GI: soft, non tender, non distended : no CVA tenderness Skin: no rashes Extremities: no edema Neuro: Oriented X3, grossly intact Psych: cooperative Results Labs CBC and Chem 7: 09/14/21 12:24 09/14/21 12:24 Labs: Laboratory Results - last 24 hr 09/14/21 09/14/21 09/14/21 12:24 12:24 14:10 MCV 84.9 MCH 29.0 MCHC 34.2 RDW 12.7 Plt Count 275 MPV 11.9 Immature Gran % (Auto) 0.6 H Neut % (Auto) 78.3 H Lymph % (Auto) 15.5 L [place] % (Auto) 5.3 Eos % (Auto) 0.1 Baso % (Auto) 0.2 Lymph # (Auto) 1.7 [place] # (Auto) 0.6 Eos # (Auto) 0.0 Baso # (Auto) 0.0 Abs Immat Gran (auto) 0.06 H Absolute Neuts (auto) 8.54 H Absolute Nucleated RBC 0.000 Nucleated RBC % (auto) 0.0 Anion Gap 17 Estim Creat Clear Calc 98.3 Estimated GFR > 60 Random Glucose 95 Calcium 9.6 Urine Color YELLOW Urine Appearance CLEAR Urine pH 6.5 Ur Specific [place] 1.020 Urine Protein NEG Urine Glucose (UA) NEG Urine Ketones >=80 Urine Blood NEG Urine Nitrite NEG Ur Leukocyte Esterase NEG Assessment and Plan (1) Intractable vomiting: Status: Acute 31F presented with intractable nausea vomiting Intractable nausea vomiting IV fluids, Reglan, Zofran Monitor electrolytes Recent urinary tract infection Received 4 days of antibiotics, symptoms resolved, UA negative, will discontinue Quality Stroke Does the patient have a stroke diagnosis?: No VTE Prior VTE?: No VTE Risk Level:: Medical - low VTE Device Contraindication: Treatment Not Indicated VTE Drug Contraindication: Treatment Not Indicated
[2021-09-14 19:29] VITALS: BP 129/63; PULSE 60; RESP 14; TEMP 36.9; O2SAT 100
--- NOTE | 2021-09-14 20:35 | PC.NURSE ---
DR DICKERSON CAME DOWN AND SPOKE WITH PATIENT. PT LEAVING AMA, DOES NOT WANT TO BE ADMITTED BECAUSE SYMPTOMS HAVE RESOLVED.
--- NOTE | 2021-09-15 06:57 | PM.DS ---
DS: Providers Provider Date of Service: 09/14/21 Date of admission: 09/14/21 15:27 Primary care physician: Kate Queen MD DS: Diagnosis Discharge Diagnosis (1) Intractable vomiting: Status: Acute DS: Summary Hospital Course Hospital Course: Patient had been admitted for intractable nausea and vomiting. Apparently 5 hours later patient stated that her symptoms had resolved. Therefore she was discharged home. Time Spent with Patient Time attestation: Total time spent providing and/or coordinating discharge services: Discharge coordination time: Less than 30 minutes Quality: Stroke Does the patient have a stroke diagnosis?: No Physical Exam Vital Signs: Vital Signs: Last Vital Signs Temp 98.5 F 09/14/21 19:29 Pulse 60 09/14/21 19:29 Resp 14 09/14/21 19:29 BP 129/63 09/14/21 19:29 Pulse Ox 100 09/14/21 19:29 Body Mass Index 33.3 DS: Data Data Completed and Pending Labs on day of discharge: Laboratory Results - last 24 hr 09/14/21 09/14/21 09/14/21 12:24 12:24 14:10 WBC 10.9 H RBC 5.03 Hgb 14.6 Hct 42.7 MCV 84.9 MCH 29.0 MCHC 34.2 RDW 12.7 Plt Count 275 MPV 11.9 Immature Gran % (Auto) 0.6 H Neut % (Auto) 78.3 H Lymph % (Auto) 15.5 L [place] % (Auto) 5.3 Eos % (Auto) 0.1 Baso % (Auto) 0.2 Lymph # (Auto) 1.7 [place] # (Auto) 0.6 Eos # (Auto) 0.0 Baso # (Auto) 0.0 Abs Immat Gran (auto) 0.06 H Absolute Neuts (auto) 8.54 H Absolute Nucleated RBC 0.000 Nucleated RBC % (auto) 0.0 Sodium 135 Potassium 3.5 Chloride 100 Carbon Dioxide 22 Anion Gap 17 BUN 10 Creatinine 0.89 Estim Creat Clear Calc 98.3 Estimated GFR > 60 Random Glucose 95 Calcium 9.6 Urine Color YELLOW Urine Appearance CLEAR Urine pH 6.5 Ur Specific [place] 1.020 Urine Protein NEG Urine Glucose (UA) NEG Urine Ketones >=80 Urine Blood NEG Urine Nitrite NEG Ur Leukocyte Esterase NEG Discharge Plan Discharge Patient Disposition: Xfer Other Discharge Medications: No Action cefuroxime axetil 500 mg tablet 500 mg PO BID Qty: 20 RF: 0 ondansetron HCl [Zofran] 4 mg tablet 4 mg PO Q8H PRN (Reason: nausea and vomiting) Qty: 10 RF: 0 Care Plan Goals: recovery Health Concerns: cyclic voimitting Plan of Treatment: avoid marijuana Assessment: see above Discharge Date/Time: 09/14/21 20:56
== END 2021-09-14 20:56 | disposition other institution (70) ==
LOC: HO.ED 14:54 → HO.EDOVER 15:33
PROVIDERS: Admitting Provider Internal Medicine; Emergency Provider Emergency Medicine; PCP Internal Medicine; Visit Provider Internal Medicine
DX: R11.15 Cyclical vomiting syndrome unrelated to migraine (principal); E86.0 Dehydration; N39.0 Urinary tract infection, site not specified; N20.0 Calculus of kidney; F12.10 Cannabis abuse, uncomplicated; Z79.899 Other long term (current) drug therapy; Z53.29 Procedure and treatment not carried out because of patient's decision for other reasons
CPT/HCPCS: 36415; 80048; 81003; 85025; 96361; 96374; 96375; 96376; 99218; 99285; J2060; J2405; J2765

== ENCOUNTER 2022-04-27 21:39 | Emergency (ER) | payer SELFPAY ==
[2022-04-27 22:37] VITALS: BP 114/65; PULSE 58; RESP 18; TEMP 37; O2SAT 99; BMI 29.0
[2022-04-27] MEDS: Ondansetron ODT 4 MG TAB.RAPDIS TRANSLINGU (22:54)
[2022-04-27 22:55] LABS: MANUAL DIFF FLAG NO
[2022-04-27 22:58] LABS: Basophils Percent Auto 0.2 % (0-2); Hematocrit 37.5 % (37.0-47.0); Hemoglobin 13.1 g/dl (12.0-16.0); Imm Gran Abs Auto 0.03 X10*3/uL (0.00-0.03); Imm Gran Pct Auto 0.3 % (0.0-0.4); Lymphocytes Absolute Auto 2.9 X10*3/uL (1.2-4.9); Mean Corpuscular HGB Conc 34.9 g/dl (31.0-35.0); Mean Corpuscular Hemoglobin 29.8 pg (27.0-33.0); Mean Corpuscular Volume 85.2 fL (80.0-98.0); Mean Platelet Volume 11.5 fL (9.4-12.3); Monocytes Absolute Auto 0.9 X10*3/uL (0.1-1.2); Monocytes Percent Auto 8.4 % (2-11); Neutrophils Absolute Auto 6.9 x10*3/uL (2.0-8.3); Neutrophils Percent Auto 64.1 % (45-73); Platelet Count 228 X10*3/uL (160-400); Red Cell Distribution Width 13.2 % (11.0-16.0); White Blood Count 10.7 X10*3/uL (4.8-10.8)
[2022-04-27 23:14] LABS: Alanine Aminotransferase 14 U/L (0-31); Albumin Level 4.6 g/dL (3.5-5.0); Alkaline Phosphatase 84 U/L (39-117); Anion Gap 15 (12-20); Aspartate Amino Transferase 15 U/L (5-31); Bilirubin Total 1.3 mg/dL (0.0-1.0); Blood Urea Nitrogen 13 mg/dL (9-16); Carbon Dioxide 27 mmol/L (22-29); Chloride 97 mmol/L (96-108); Creatinine Clr Calc Pharmacy 107.9; Estimated Glomerular Filt Rate > 60; Glucose Random 112 mg/dL (60-115); Sodium 136 mmol/L (135-145); Total Protein 7.5 g/dL (6.5-8.0)
[2022-04-27 23:41] LABS: Appearance Urine CLEAR; Color Urine YELLOW; Glucose Urine UA NEG (NEG); Leukocyte Esterase Urine NEG (NEG); Nitrite Urine NEG (NEG); PH >= 9.0 (5.0-8.0); Specific Gravity - Urine 1.015 (1.005-1.025); UACC Culture Trigger NO; Urine Blood NEG (NEG); Urine Ketones >=80 MG/DL (NEG)
[2022-04-27 23:42] LABS: Urine Protein 1+ MG/DL (NEG-TRACE)
[2022-04-27 23:43] LABS: UPreg QC Valid YES; Urine Pregnancy NEGATIVE (NEGATIVE)
[2022-04-27 23:47] LABS: Bacteria Urine 1+ /LPF; Calcium Phosphate Crystals Ur TRACE /LPF; Mucus Urine 4+ /LPF; RBC Urine 0 /HPF (0); Squamous Epithelial Cell Urine 2+ /LPF; WBC Urine 0-2 /HPF (0-4)
--- NOTE | 2022-04-28 00:17 | ED.NAVMDI ---
HPI - Nausea/Vomiting/Diarrhea General Chief complaint: Nausea/Vomiting/Diarrhea Stated complaint: vomiting, weakness Time Seen by Provider: 04/28/22 00:17 Source: patient Mode of arrival: ambulatory Limitations: no limitations History of Present Illness HPI Narrative: Vomiting for 3 days, felt lightheaded and passed out. Patient has had intractable vomiting in the past MD elicited complaint: nausea and vomiting Onset (ago): day(s) Associated nausea: Yes Related Data Previous Rx's Medication Instructions Recorded cefuroxime axetil 500 mg tablet 500 mg PO BID #20 tabs 09/10/21 ondansetron HCl 4 mg tablet 4 mg PO Q8H PRN nausea and 09/10/21 (Zofran) vomiting #10 tabs promethazine 25 mg tablet 25 mg PO TID PRN nausea and 04/28/22 vomiting #14 tabs Allergies Allergy/AdvReac Type Severity Reaction Status Date / Time moxifloxacin Allergy Vomiting Verified 04/27/22 22:36 Review of Systems Constitutional: Constitutional: Reports no additional constitutional complaints Eyes: Eyes: Reports no additional eye complaints ENT: Denies dizziness Cardiovascular: Cardiovascular: Reports no additional cardiovascular complaints Respiratory: Respiratory: Reports as per HPI Gastrointestinal: Gastrointestinal: Reports nausea Genitourinary: Genitourinary: Reports no additional female genitourinary complaints Musculoskeletal: Musculoskeletal: Reports no additional musculoskeletal complaints Integumentary/Breasts: Skin/Breast: Denies rash Neurologic: Reports system reviewed and no additional complaints, except as documented, Denies dizziness and Denies Sensory deficit (Neuro) Psychiatric: Psychiatric: Denies anxiety [facility] Past Medical History Medical History Nephrolithiasis Social History Social History Alcohol intake: never Patient Tobacco Use Status: Never used Tobacco Substance Use Type: Marijuana Advance Directives: No service: No Current occupational status: employed Physical Exam Vital Signs: Vital Signs: Last Vital Signs Temp 98.9 F 04/28/22 04:31 Pulse 51 04/28/22 04:31 Resp 16 04/28/22 04:31 BP 133/76 04/28/22 04:31 Pulse Ox 98 04/28/22 04:31 O2 Del Method 04/28/22 04:31 BMI result Body Mass Index 29.0 Const: General: healthy appearing Nutritional Appearance: average body habitus Orientation/consciousness: oriented to person and patient oriented x3 Limitations: no limitations HEENT: Head: Yes normal to inspection Ears: external ears normal General nose exam: Normal external nose present Mouth: Normal oral and palatal mucosa present and oropharynx normal Throat: Yes posterior oropharynx normal Eyes: General: appearance normal, both eyes and all related structures Neck: Other: supple Neck: Yes normal visual inspection Chest: Chest palpation & inspection: normal inspection of the chest Resp: Auscultation: clear to auscultation bilaterally Cardio: Jugular venous distension: no JVD Rate: regular rate Rhythm: regular rhythm Heart sounds: S1 normal heart sound present and S2 normal heart sound present GI: Inspection: Yes normal to inspection Palpation (GI): Soft to palpation, nontender and No hepatosplenomegaly present Auscultation: normal bowel sounds : General: Yes no CVA tenderness Back/Spine/Pelvis: Back: no CVA tenderness Skin: General skin exam: no rashes or lesions noted Neuro: General: oriented to person and patient oriented x3 Cranial nerves: Yes CN's II-XII intact bilaterally Motor exam (neuro): 5/5 motor strength present throughout Sensory Exam: No Sensory deficit (Neuro) Extrem: General: Yes normal to inspection Psych: Appearance: grossly normal Course Reevaluation(s) Reevaluation #1: physician observation started at 3:20am, reason is continual nausea. Currently patient medicated and sleeping lungs clear, CV: RRR, abd nontender. Awaiting to see if patient does not vomit further she did not feel comfortable going home Time: 03:26 Reevaluation #2: no further vomiting, sleeping comfortably will dc home on phenergan, end of physician observation Time: 06:09 MDM - Nausea/Vomiting/Diarrhea Lab Data Result diagrams: 04/27/22 22:50 04/27/22 22:50 Labs: Lab Results 04/27/22 04/27/22 04/27/22 Range/Units 22:50 22:50 23:31 WBC 10.7 (4.8-10.8) X10*3/uL RBC 4.40 (4.20-5.50) X10*6/uL Hgb 13.1 (12.0-16.0) g/dl Hct 37.5 (37.0-47.0) % MCV 85.2 (80.0-98.0) fL MCH 29.8 (27.0-33.0) pg MCHC 34.9 (31.0-35.0) g/dl RDW 13.2 (11.0-16.0) % Plt Count 228 (160-400) X10*3/uL MPV 11.5 (9.4-12.3) fL Immature Gran % (Auto) 0.3 (0.0-0.4) % Neut % (Auto) 64.1 (45-73) % Lymph % (Auto) 27.0 (20-40) % [place] % (Auto) 8.4 (2-11) % Eos % (Auto) 0.0 (0-4) % Baso % (Auto) 0.2 (0-2) % Lymph # (Auto) 2.9 (1.2-4.9) X10*3/uL [place] # (Auto) 0.9 (0.1-1.2) X10*3/uL Eos # (Auto) 0.0 (0.0-0.4) X10*3/uL Baso # (Auto) 0.0 (0.0-0.2) X10*3/uL Abs Immat Gran (auto) 0.03 (0.00-0.03) X10*3/uL Absolute Neuts (auto) 6.9 (2.0-8.3) x10*3/uL Absolute Nucleated RBC 0.000 (0.0-0.012) X10*3/uL Nucleated RBC % (auto) 0.0 (0.0-0.2) /100WBC Sodium 136 (135-145) mmol/L Potassium 3.0 L (3.3-5.1) mmol/L Chloride 97 (96-108) mmol/L Carbon Dioxide 27 (22-29) mmol/L Anion Gap 15 (12-20) BUN 13 (9-16) mg/dL Creatinine 0.75 (0.5-1.4) mg/dL Estim Creat Clear Calc 107.9 Estimated GFR > 60 Random Glucose 112 (60-115) mg/dL Calcium 10.0 (8.4-10.2) mg/dL Total Bilirubin 1.3 H (0.0-1.0) mg/dL AST 15 (5-31) U/L ALT 14 (0-31) U/L Alkaline Phosphatase 84 (39-117) U/L Total Protein 7.5 (6.5-8.0) g/dL Albumin 4.6 (3.5-5.0) g/dL Urine Color YELLOW Urine Appearance CLEAR Urine pH >= 9.0 H (5.0-8.0) Ur Specific [place] 1.015 (1.005-1.025) Urine Protein 1+ H (NEG-TRACE) MG/DL Urine Glucose (UA) NEG (NEG) MG/DL Urine Ketones >=80 (NEG) MG/DL Urine Blood NEG (NEG) Urine Nitrite NEG (NEG) Ur Leukocyte Esterase NEG (NEG) Urine RBC 0 (0) /HPF Urine WBC 0-2 (0-4) /HPF Ur Squamous Epith Cells 2+ /LPF Calcium Phosphate Cryst TRACE /LPF Urine Bacteria 1+ /LPF Urine Mucus 4+ /LPF Urine Test (NEGATIVE) 04/27/22 Range/Units 23:31 WBC (4.8-10.8) X10*3/uL RBC (4.20-5.50) X10*6/uL Hgb (12.0-16.0) g/dl Hct (37.0-47.0) % MCV (80.0-98.0) fL MCH (27.0-33.0) pg MCHC (31.0-35.0) g/dl RDW (11.0-16.0) % Plt Count (160-400) X10*3/uL MPV (9.4-12.3) fL Immature Gran % (Auto) (0.0-0.4) % Neut % (Auto) (45-73) % Lymph % (Auto) (20-40) % [place] % (Auto) (2-11) % Eos % (Auto) (0-4) % Baso % (Auto) (0-2) % Lymph # (Auto) (1.2-4.9) X10*3/uL [place] # (Auto) (0.1-1.2) X10*3/uL Eos # (Auto) (0.0-0.4) X10*3/uL Baso # (Auto) (0.0-0.2) X10*3/uL Abs Immat Gran (auto) (0.00-0.03) X10*3/uL Absolute Neuts (auto) (2.0-8.3) x10*3/uL Absolute Nucleated RBC (0.0-0.012) X10*3/uL Nucleated RBC % (auto) (0.0-0.2) /100WBC Sodium (135-145) mmol/L Potassium (3.3-5.1) mmol/L Chloride (96-108) mmol/L Carbon Dioxide (22-29) mmol/L Anion Gap (12-20) BUN (9-16) mg/dL Creatinine (0.5-1.4) mg/dL Estim Creat Clear Calc Estimated GFR Random Glucose (60-115) mg/dL Calcium (8.4-10.2) mg/dL Total Bilirubin (0.0-1.0) mg/dL AST (5-31) U/L ALT (0-31) U/L Alkaline Phosphatase (39-117) U/L Total Protein (6.5-8.0) g/dL Albumin (3.5-5.0) g/dL Urine Color Urine Appearance Urine pH (5.0-8.0) Ur Specific [place] (1.005-1.025) Urine Protein (NEG-TRACE) MG/DL Urine Glucose (UA) (NEG) MG/DL Urine Ketones (NEG) MG/DL Urine Blood (NEG) Urine Nitrite (NEG) Ur Leukocyte Esterase (NEG) Urine RBC (0) /HPF Urine WBC (0-4) /HPF Ur Squamous Epith Cells /LPF Calcium Phosphate Cryst /LPF Urine Bacteria /LPF Urine Mucus /LPF Urine Test NEGATIVE (NEGATIVE) Discharge Plan Discharge Clinical Impression: Intractable vomiting Patient Disposition: Home, Self-Care Instructions: Acute Nausea and Vomiting (ED) Prescriptions: New promethazine 25 mg tablet 25 mg PO TID PRN (Reason: nausea and vomiting) Qty: 14 0RF No Action cefuroxime axetil 500 mg tablet 500 mg PO BID Qty: 20 0RF ondansetron HCl [Zofran] 4 mg tablet 4 mg PO Q8H PRN (Reason: nausea and vomiting) Qty: 10 0RF Referrals: Kate Queen MD [Primary Care Provider] - 5 days Interventions: Admission Worksheet (ED) Last Done: 04/28/22 03:52
--- NOTE | 2022-04-28 00:19 | ECG_ITS ---
Test Reason : PALPITATIONS Blood Pressure : / mmHG Vent. Rate : 043 BPM Atrial Rate : 043 BPM P-R Int : 136 ms QRS Dur : 100 ms QT Int : 646 ms P-R-T Axes : 077 048 048 degrees QTc Int : 545 ms Marked sinus bradycardia Prolonged QT Abnormal ECG No previous ECGs available Referred By: Koko El Electronically Signed By:Chris Wynne
[2022-04-28 00:43] VITALS: PULSE 48; RESP 15; O2SAT 98
[2022-04-28] MEDS: 0.9 % Sodium Chloride 1,000 ML 999 ML IVCONT ×2 (00:44→00:51)
[2022-04-28 00:47] VITALS: BP 137/73; PULSE 47; RESP 16; TEMP 37.1; O2SAT 100
--- NOTE | 2022-04-28 00:51 | PC.NURSE ---
pt vomited clear/bile just prior to phenergan admin
[2022-04-28 02:25] VITALS: BP 134/72; PULSE 48; RESP 16; O2SAT 100
[2022-04-28] MEDS: diphenhydrAMINE HCL 50 MG/ML VIAL 25 MG IVPUSH (02:43)
[2022-04-28] MEDS: Haloperidol Lactate 5 MG/ML VIAL IVPUSH (02:43)
--- NOTE | 2022-04-28 02:55 | PC.NURSE ---
pt vomiting bile/clear fluids in hallway bed.
[2022-04-28] MEDS: Potassium Chloride ER 20 MEQ TAB.ER.PRT PO (03:36)
--- NOTE | 2022-04-28 03:56 | PC.NURSE ---
admission worksheet entered on wrong pt, unable to delete
[2022-04-28 04:31] VITALS: BP 133/76; PULSE 51; RESP 16; TEMP 37.2; O2SAT 98
--- NOTE | 2022-04-28 04:40 | PC.NURSE ---
pt resting quietly/sleeping at this time.
[2022-04-28 06:26] VITALS: RESP 16; TEMP 37.4
--- NOTE | 2022-04-28 06:43 | PC.NURSE ---
pt ready for discharge, this RN went over dc paperwork, pt instructed to call for ride. pt states she vomited bile 2x as she was trying to get up to call for ride. aware. Continue with discharge, pt in no distress
== END 2022-04-28 06:56 | disposition home or self-care (01) ==
PROVIDERS: Emergency Provider Emergency Medicine; PCP Internal Medicine
DX: R11.2 Nausea with vomiting, unspecified (principal); R00.1 Bradycardia, unspecified; F12.90 Cannabis use, unspecified, uncomplicated
CPT/HCPCS: 36415; 80053; 81001; 81025; 85025; 93005; 96361; 96374; 96375; 99284; 99285; J1200; J2550

== ENCOUNTER 2022-08-17 10:26 | Emergency (ER) | payer SELFPAY ==
[2022-08-17 10:30] VITALS: BP 179/98; PULSE 44; RESP 18; TEMP 36.9; O2SAT 99; BMI 27.8
--- NOTE | 2022-08-17 10:32 | ECG_ITS ---
Test Reason : nausea /cx pain Blood Pressure : / mmHG Vent. Rate : 047 BPM Atrial Rate : 047 BPM P-R Int : 154 ms QRS Dur : 086 ms QT Int : 480 ms P-R-T Axes : 065 048 054 degrees QTc Int : 424 ms Sinus bradycardia with sinus arrhythmia Otherwise normal ECG When compared with ECG of 28-APR-2022 00:19, QT has shortened Referred By: Generic ED Physician Electronically Signed By:ELDER JEROME
[2022-08-17 14:02] LABS: Basophils Percent Auto 0.1 % (0-2); Hematocrit 41.1 % (37.0-47.0); Hemoglobin 13.8 g/dl (12.0-16.0); Imm Gran Abs Auto 0.04 X10*3/uL (0.00-0.03); Imm Gran Pct Auto 0.3 % (0.0-0.4); Lymphocytes Percent Auto 6.6 % (20-40); MANUAL DIFF FLAG SCAN; Mean Corpuscular HGB Conc 33.6 g/dl (31.0-35.0); Mean Corpuscular Hemoglobin 29.3 pg (27.0-33.0); Mean Corpuscular Volume 87.3 fL (80.0-98.0); Mean Platelet Volume 11.8 fL (9.4-12.3); Monocytes Absolute Auto 0.3 X10*3/uL (0.1-1.2); Monocytes Percent Auto 1.8 % (2-11); Neutrophils Absolute Auto 13.9 x10*3/uL (2.0-8.3); Neutrophils Percent Auto 91.2 % (45-73); Platelet Count 280 X10*3/uL (160-400); Red Blood Count 4.71 X10*6/uL (4.20-5.50); Red Cell Distribution Width 12.7 % (11.0-16.0); SCAN SMEAR FLAG 1; White Blood Count 15.2 X10*3/uL (4.8-10.8)
[2022-08-17 14:29] LABS: SLIDE REVIEW VERIFIED
[2022-08-17 14:37] LABS: Blood Urea Nitrogen 9 mg/dL (9-16); Calcium 9.6 mg/dL (8.4-10.2); Creatinine Clr Calc Pharmacy 110.2; Estimated Glomerular Filt Rate > 60; Glucose Random 109 mg/dL (60-115)
[2022-08-17 14:46] LABS: Anion Gap 20 (12-20); Carbon Dioxide 18 mmol/L (22-29); Chloride 105 mmol/L (96-108); Potassium 3.8 mmol/L (3.3-5.1); Sodium 139 mmol/L (135-145)
[2022-08-17 17:08] LABS: Alanine Aminotransferase 12 U/L (0-31); Albumin Level 4.9 g/dL (3.5-5.0); Alkaline Phosphatase 87 U/L (39-117); Aspartate Amino Transferase 15 U/L (5-31); Bilirubin Direct 0.2 mg/dL (0.0-0.5); Bilirubin Total 0.4 mg/dL (0.0-1.0); Lipase 16 U/L (8-78); Total Protein 7.9 g/dL (6.5-8.0)
--- NOTE | 2022-08-17 23:54 | ED_ITS ---
HPI - Nausea/Vomiting/Diarrhea General Chief complaint: Nausea/Vomiting/Diarrhea Stated complaint: Vomiting Time Seen by Provider: 08/17/22 16:28 History of Present Illness HPI Narrative: Patient is a 32-year-old female presents today with having nausea vomiting. Ongoing for the last 24 hours. Patient is vomiting mostly food. No diarrhea. No changes in diet. Patient does not think she is . Her menstruation has been normal in timing and duration. No coughing congestion upper respiratory symptoms. No diaphoresis. Patient from home. Related Data Previous Rx's Medication Instructions Recorded cefuroxime axetil 500 mg tablet 500 mg PO BID #20 tabs 09/10/21 ondansetron HCl 4 mg tablet 4 mg PO Q8H PRN nausea and 09/10/21 (Zofran) vomiting #10 tabs promethazine 25 mg tablet 25 mg PO TID PRN nausea and 04/28/22 vomiting #14 tabs ondansetron 4 mg disintegrating 4 mg PO TID PRN nausea and 08/18/22 tablet vomiting 5 days #10 tabs Allergies Allergy/AdvReac Type Severity Reaction Status Date / Time moxifloxacin Allergy Vomiting Verified 04/27/22 22:36 Review of Systems Review of Systems: Positive abdominal pain Positive nausea vomiting Yes all other systems are reviewed and are negative [facility] Past Medical History Attestation statement: The following information was validated with the patient. Medical History Nephrolithiasis Social History Social History Alcohol intake: never Patient Tobacco Use Status: Never used Tobacco Substance Use Type: Marijuana Advance Directives: No Advance Directives Information Provided: Yes service: No Current occupational status: employed Physical Exam Vital Signs: Vital Signs: Last Vital Signs Temp 99.6 F 08/18/22 00:37 Pulse 50 08/18/22 00:37 Resp 17 08/18/22 00:37 BP 141/76 H 08/18/22 00:37 Pulse Ox 97 08/18/22 00:37 O2 Del Method 08/18/22 00:37 BMI result Body Mass Index 27.8 Appearance: Alert. Oriented X3. No acute distress. Eyes: Pupils equal, round and reactive to light. ENT: Pharynx normal. Neck: Normal inspection. Neck supple. No lymph nodes noted. No crepitus CVS: Normal heart rate and rhythm. Pulses normal. Normal S1 and S2 Respiratory: No respiratory distress. Breath sounds normal. No Wheezing. No rales Abdomen: Soft and nontender. No rigidity. No distention. good BS x4 Skin: Skin warm and dry. Normal skin color. Normal skin turgor. Extremities: No lower extremity edema. Neurovascular intact to all extremities. No Lacerations. No Rash Neuro: Oriented X 3. No motor deficit. No sensory deficit. Moving all extermities. No slurred speech MDM - Nausea/Vomiting/Diarrhea MDM Narrative Medical decision making narrative: Patient given IV fluids. Question viral in origin. Patient's LFTs are normal lipase were normal. Given IV fluids. Repeat abdominal exam was soft nontender. Symptomatically feels much better. test was negative unlikely ectopic. Will discharge patient home. In stable condition. Medical Records Attestation: I reviewed the patient's medical records. Lab Data Attestation: I reviewed the patient's lab results. Result diagrams: 08/17/22 13:51 08/17/22 13:51 Labs: Lab Results 08/17/22 08/17/22 Range/Units 13:51 13:51 WBC 15.2 H (4.8-10.8) X10*3/uL RBC 4.71 (4.20-5.50) X10*6/uL Hgb 13.8 (12.0-16.0) g/dl Hct 41.1 (37.0-47.0) % MCV 87.3 (80.0-98.0) fL MCH 29.3 (27.0-33.0) pg MCHC 33.6 (31.0-35.0) g/dl RDW 12.7 (11.0-16.0) % Plt Count 280 (160-400) X10*3/uL MPV 11.8 (9.4-12.3) fL Immature Gran % (Auto) 0.3 (0.0-0.4) % Neut % (Auto) 91.2 H (45-73) % Lymph % (Auto) 6.6 L (20-40) % [place] % (Auto) 1.8 L (2-11) % Eos % (Auto) 0.0 (0-4) % Baso % (Auto) 0.1 (0-2) % Lymph # (Auto) 1.0 L (1.2-4.9) X10*3/uL [place] # (Auto) 0.3 (0.1-1.2) X10*3/uL Eos # (Auto) 0.0 (0.0-0.4) X10*3/uL Baso # (Auto) 0.0 (0.0-0.2) X10*3/uL Abs Immat Gran (auto) 0.04 H (0.00-0.03) X10*3/uL Absolute Neuts (auto) 13.9 H (2.0-8.3) x10*3/uL Absolute Nucleated RBC 0.000 (0.0-0.012) X10*3/uL Nucleated RBC % (auto) 0.0 (0.0-0.2) /100WBC Smear Tech's Comments VERIFIED Sodium 139 (135-145) mmol/L Potassium 3.8 D (3.3-5.1) mmol/L Chloride 105 (96-108) mmol/L Carbon Dioxide 18 L (22-29) mmol/L Anion Gap 20 (12-20) BUN 9 (9-16) mg/dL Creatinine 0.72 (0.5-1.4) mg/dL Estim Creat Clear Calc 110.2 Estimated GFR > 60 Random Glucose 109 (60-115) mg/dL Calcium 9.6 (8.4-10.2) mg/dL Total Bilirubin 0.4 (0.0-1.0) mg/dL Direct Bilirubin 0.2 (0.0-0.5) mg/dL AST 15 (5-31) U/L ALT 12 (0-31) U/L Alkaline Phosphatase 87 (39-117) U/L Total Protein 7.9 (6.5-8.0) g/dL Albumin 4.9 (3.5-5.0) g/dL Lipase 16 (8-78) U/L Beta HCG, Quant < 2 mIU/mL Discharge Plan Discharge Clinical Impression: Dehydration, Vomiting Patient Disposition: Home, Self-Care Instructions: Dehydration (ED), Acute Nausea and Vomiting (ED) Prescriptions: New ondansetron 4 mg tablet,disintegrating 4 mg PO TID PRN (Reason: nausea and vomiting) 5 Days Qty: 10 0RF No Action promethazine 25 mg tablet 25 mg PO TID PRN (Reason: nausea and vomiting) Qty: 14 0RF cefuroxime axetil 500 mg tablet 500 mg PO BID Qty: 20 0RF ondansetron HCl [Zofran] 4 mg tablet 4 mg PO Q8H PRN (Reason: nausea and vomiting) Qty: 10 0RF Referrals: Kate Queen MD [Primary Care Provider] -
[2022-08-18] MEDS: ondansetron HCL 4 MG/2 ML VIAL IVPUSH
[2022-08-18] MEDS: 0.9 % Sodium Chloride 1,000 ML 999 ML IV ×2 (00:01)
[2022-08-18 00:18] LABS: HCG Quantitative < 2 mIU/mL
[2022-08-18 00:37] VITALS: BP 141/76; PULSE 50; RESP 17; TEMP 37.6; O2SAT 97
== END 2022-08-18 01:36 | disposition home or self-care (01) ==
PROVIDERS: Physician Assistant; Emergency Provider Emergency Medicine Emergency Medical Services; PCP Internal Medicine
DX: R11.2 Nausea with vomiting, unspecified (principal); E86.0 Dehydration
CPT/HCPCS: 36415; 80048; 80076; 83690; 84702; 85025; 93005; 96374; 99284; J2405

== ENCOUNTER 2022-09-26 21:13 | Emergency (ER) | payer OTHER, SELFPAY ==
[2022-09-26 22:00] VITALS: BP 140/91; PULSE 63; RESP 16; TEMP 36.5; O2SAT 100; BMI 28.3
[2022-09-26 22:31] LABS: Hematocrit 37.2 % (37.0-47.0); Mean Corpuscular HGB Conc 32.3 g/dl (31.0-35.0); Mean Corpuscular Hemoglobin 28.7 pg (27.0-33.0); Mean Platelet Volume 11.1 fL (9.4-12.3); Platelet Count 244 X10*3/uL (160-400); Red Blood Count 4.18 X10*6/uL (4.20-5.50); Red Cell Distribution Width 13.2 % (11.0-16.0); White Blood Count 8.6 X10*3/uL (4.8-10.8)
[2022-09-26 22:37] LABS: UPreg QC Valid YES; Urine Pregnancy NEGATIVE (NEGATIVE)
[2022-09-26 22:41] LABS: Amphetamine Screen Urine Not Detected (Not Detect); Barbiturates, Urine Not Detected (Not Detect); Benzodiazepines Screen Urine Not Detected (Not Detect); Cannabinoid Screen Urine POSITIVE (Not Detect); Cocaine Screen Urine Not Detected (Not Detect); Fentanyl, urine POSITIVE (Not Detect); Opiate Screen Urine Not Detected (Not Detect); Phencyclidine Screen Urine Not Detected (Not Detect)
[2022-09-26 22:48] LABS: Anion Gap 15 (12-20); Blood Urea Nitrogen 8 mg/dL (9-16); Calcium 9.6 mg/dL (8.4-10.2); Carbon Dioxide 24 mmol/L (22-29); Chloride 106 mmol/L (96-108); Creatinine Clr Calc Pharmacy 114.2; Estimated Glomerular Filt Rate > 60; Ethanol < 10 mg/dL; Glucose Random 93 mg/dL (60-115); Potassium 3.4 mmol/L (3.3-5.1); Sodium 142 mmol/L (135-145)
--- NOTE | 2022-09-26 23:17 | ED_ITS ---
HPI - Psych General Chief Complaint: Psychiatric Symptoms <UZAIR Hall - Last Filed: 09/26/22 23:37> Stated Complaint: substance abuse <UZAIR Hall - Last Filed: 09/26/22 23:37> Time Seen by Provider: 09/26/22 23:13 <UZAIR Hall - Last Filed: 09/26/22 23:37> Source: patient <UZAIR Hall - Last Filed: 09/26/22 23:37> Mode of arrival: ambulatory <UZAIR Hall Last Filed: 09/26/22 23:37> Limitations: no limitations <UZAIR Hall Last Filed: 09/26/22 23:37> History of Present Illness HPI Narrative: This is a 32-year-old female past medical history significant for substance abuse, intractable vomiting presenting to the emergency department seeking detox and expressing suicidal ideation. Patient also expressing anxiety and depression she tells me that her family recently found out that she is a ddicted to Percocet. Tells me this has caused a lot of issues. Patient tells me today she was driving and felt tempted to drive her car into something and I. Patient tells me she is suffering with addiction and typically snorts anywhere between 4-615 mg Percocet tablets daily. Patient tells me she started using at the age of 20 had a period where she was clean, relapsed about a year and half a go and has been using every day. Patient tells me she was diagnosed with bipolar once however than they told her she was misdiagnosed, not taking medications for it. Patient denies visual, auditory and tactile hallucinations. Patient denies medical complaints at this time other than headache, headache feels like her typical, without trauma, vision changes, dizziness. Patient denies chest pain, shortness of breath, fevers, chills, abdominal pain, nausea vomiting. <UZAIR Hall Last Filed: 09/26/22 23:37> Related Data Home Medications: Previous Rx's Medication Instructions Recorded cefuroxime axetil 500 mg tablet 500 mg PO BID #20 tabs 09/10/21 ondansetron HCl 4 mg tablet 4 mg PO Q8H PRN nausea and 09/10/21 (Zofran) vomiting #10 tabs promethazine 25 mg tablet 25 mg PO TID PRN nausea and 04/28/22 vomiting #14 tabs ondansetron 4 mg disintegrating 4 mg PO TID PRN nausea and 08/18/22 tablet vomiting 5 days #10 tabs <UZAIR Hall - Last Filed: 09/26/22 23:37> Allergies/Adverse Reactions: Allergies Allergy/AdvReac Type Severity Reaction Status Date / Time moxifloxacin Allergy Vomiting Verified 09/26/22 22:06 <UZAIR Hall - Last Filed: 09/26/22 23:37> Review of Systems Review of Systems: Constitutional : No Fever, No Chills ENT/Mouth : No Ear Pain, No Nasal Congestion, No sore throat Eyes: No Eye Pain, No Swelling, No Redness Cardiovascular : No Chest Pain, No SOB Respiratory : No Cough, No Sputum, No Dyspnea Gastrointestinal : No Nausea, No Vomiting, No Diarrhea, No Hematochezia, No M lisa Genitourinary : No Dysuria, No Urinary Frequency, No Hematuria Musculoskeletal : No Myalgias Skin : No Skin Lesions, No rash Neuro : No Weakness, No Numbness, No Paresthesias, No Dizziness, No Headache Psych : positive Anxiety, positive Depression, positive SI, No HI All other systems reviewed and are negative <UZAIR Hall - Last Filed: 09/26/22 23:37> Yes all other systems are reviewed and are negative <UZAIR Hall - Last Filed: 09/26/22 23:37> [facility] Past Medical History Attestation statement: The following information was validated with the patient. <UZAIR Hall Last Filed: 09/26/22 23:37> Source: old records reviewed and nursing notes reviewed <UZAIR Hall Last Filed: 09/26/22 23:37> Medical History: Medical History Nephrolithiasis <UZAIR Hall Last Filed: 09/26/22 23:37> Social History Social History: Social History Alcohol intake: never Patient Tobacco Use Status: Never used Tobacco Smoked in Last 30 Days: Yes Substance Use Type: Marijuana Advance Directives: No Advance Directives Information Provided: No Patient : No service: No Current occupational status: employed <UZAIR Hall - Last Filed: 09/26/22 23:37> Physical Exam Vital Signs: Vital Signs: Last Vital Signs Temp 98.4 F 09/27/22 04:16 Pulse 54 09/27/22 04:16 Resp 16 09/27/22 04:16 BP 132/83 09/27/22 04:16 Pulse Ox 99 09/27/22 04:16 O2 Del Method 09/27/22 04:16 BMI result Body Mass Index 28.3 vss <UZAIR Hall - Last Filed: 09/26/22 23:37> Vital Signs: Last Vital Signs Temp 98.4 F 09/27/22 04:16 Pulse 54 09/27/22 04:16 Resp 16 09/27/22 04:16 BP 132/83 09/27/22 04:16 Pulse Ox 99 09/27/22 04:16 O2 Del Method 09/27/22 04:16 BMI result Body Mass Index 28.3 <Lolita Gamez MD - Last Filed: 09/27/22 08:52> Appearance: Alert.? Oriented X3.? No acute distress.? Head: Normocephalic, atraumatic, no step-offs or deformities Eyes: Pupils equal, round and reactive to light.? Neck: Normal inspection.? Neck supple.? CVS: Normal heart rate and rhythm.? Pulses normal.? Respiratory: No respiratory distress.? Breath sounds normal.? Abdomen: Soft and nontender.? Skin: Skin warm and dry.? Normal skin color.? Normal skin turgor.? Extremities: No lower extremity edema.? No calf ttp. 5/5 strength to bilateral upper and lower extremities Neuro: Oriented X 3.? No motor deficit.? No sensory deficit. CN 2-12 intact . Ambulating with steady gait normal coordination. Normal [id number]. Normal rapid alternating movements. <UZAIR Hall - Last Filed: 09/26/22 23:37> Course Reevaluation(s) Reevaluation #1: CBC within normal limits. Chemistry with no acute findings. Urine negative. Toxicology positive for fentanyl and marijuana. Ethanol negative. At this time patient will be placed into physician observation to allow more time to be evaluated by the behavioral health team. At time observation was started patient common cooperative no acute distress will continue to monitor. <UZAIR Hall - Last Filed: 09/26/22 23:37> Time: 23:35 <UZAIR Hall - Last Filed: 09/26/22 23:37> Reevaluation #2: Patient is awake, alert, oriented x3, feeling better with her depression symptoms, no SI, no HI, patient feels safe to be discharged home with family support her parents and her significant other's, because patient early symptoms of withdrawal will start on Suboxone in the ED today and patient will be following with the Suboxone clinic tomorrow morning information for Suboxone Clinic was provided to the patient. <Lolita Gamez MD - Last Filed: 09/27/22 08:52> Time: 08:50 <Lolita Gamez MD - Last Filed: 09/27/22 08:52> Medications Administered Discontinued Medications Generic Name Dose Route Start Last Admin Trade Name Freq PRN Reason Stop Dose Admin Acetaminophen 975 mg 09/26/22 23:32 09/26/22 23:55 Acetaminophen 325 Mg Tablet PO 09/26/22 23:33 975 mg ONCE ONE Administration Diphenhydramine HCl 25 mg 09/27/22 02:18 09/27/22 02:22 Diphenhydramine Hcl 25 Mg Capsule PO 09/27/22 02:19 25 mg ONCE ONE Administration <UZAIR Hall - Last Filed: 09/26/22 23:37> Medications Administered Discontinued Medications Generic Name Dose Route Start Last Admin Trade Name Freq PRN Reason Stop Dose Admin Acetaminophen 975 mg 09/26/22 23:32 09/26/22 23:55 Acetaminophen 325 Mg Tablet PO 09/26/22 23:33 975 mg ONCE ONE Administration Diphenhydramine HCl 25 mg 09/27/22 02:18 09/27/22 02:22 Diphenhydramine Hcl 25 Mg Capsule PO 09/27/22 02:19 25 mg ONCE ONE Administration <Lolita Gamez MD - Last Filed: 09/27/22 08:52> MDM - Psych MDM Narrative Medical decision making narrative: 2330 32-year-old female presents with anxiety, depression, suicidal ideation with plan to drive into something while driving and requesting detox from Percocets. Placed on a Section 12 upon arrival. Physical exam benign. Patient reports headache likely secondary to stress, feels like her typical, unlikely intracranial hemorrhage or posterior stroke. Neuro nonfocal, cerebellar intact. Plan at this time medical clearance evaluation by the behavioral health team. Will be given Tylenol for headache. <UZAIR Hall - Last Filed: 09/26/22 23:37> Medical Records Attestation: I reviewed the patient's medical records. <UZAIR Hall - Last Filed: 09/26/22 23:37> Lab Data Attestation: I reviewed the patient's lab results. <UZAIR Hall - Last Filed: 09/26/22 23:37> Result diagrams: : 09/26/22 22:24 09/26/22 22:24 <UZAIR Hlal - Last Filed: 09/26/22 23:37> Labs: Lab Results 09/26/22 09/26/22 09/26/22 Range/Units 22:24 22:24 22:24 WBC 8.6 (4.8-10.8) X10*3/uL RBC 4.18 L (4.20-5.50) X10*6/uL Hgb 12.0 (12.0-16.0) g/dl Hct 37.2 (37.0-47.0) % MCV 89.0 (80.0-98.0) fL MCH 28.7 (27.0-33.0) pg MCHC 32.3 (31.0-35.0) g/dl RDW 13.2 (11.0-16.0) % Plt Count 244 (160-400) X10*3/uL MPV 11.1 (9.4-12.3) fL Absolute Nucleated RBC 0.000 (0.0-0.012) X10*3/uL Nucleated RBC % (auto) 0.0 (0.0-0.2) /100WBC Sodium 142 (135-145) mmol/L Potassium 3.4 (3.3-5.1) mmol/L Chloride 106 (96-108) mmol/L Carbon Dioxide 24 (22-29) mmol/L Anion Gap 15 (12-20) BUN 8 L (9-16) mg/dL Creatinine 0.70 (0.5-1.4) mg/dL Estim Creat Clear Calc 114.2 Estimated GFR > 60 Random Glucose 93 (60-115) mg/dL Calcium 9.6 (8.4-10.2) mg/dL Urine Test NEGATIVE (NEGATIVE) Salicylates < 5.0 L (15-30) mg/dL Urine Opiates Screen (Not Detect) Urine Fentanyl Screen (Not Detect) Acetaminophen < 1 (<30) mcg/mL Ur Barbiturates Screen (Not Detect) Ur Phencyclidine Scrn (Not Detect) Ur Amphetamines Screen (Not Detect) U Benzodiazepines Scrn (Not Detect) Urine Cocaine Screen (Not Detect) U Marijuana (THC) Screen (Not Detect) Ethyl Alcohol < 10 mg/dL 09/26/22 Range/Units 22:24 WBC (4.8-10.8) X10*3/uL RBC (4.20-5.50) X10*6/uL Hgb (12.0-16.0) g/dl Hct (37.0-47.0) % MCV (80.0-98.0) fL MCH (27.0-33.0) pg MCHC (31.0-35.0) g/dl RDW (11.0-16.0) % Plt Count (160-400) X10*3/uL MPV (9.4-12.3) fL Absolute Nucleated RBC (0.0-0.012) X10*3/uL Nucleated RBC % (auto) (0.0-0.2) /100WBC Sodium (135-145) mmol/L Potassium (3.3-5.1) mmol/L Chloride (96-108) mmol/L Carbon Dioxide (22-29) mmol/L Anion Gap (12-20) BUN (9-16) mg/dL Creatinine (0.5-1.4) mg/dL Estim Creat Clear Calc Estimated GFR Random Glucose (60-115) mg/dL Calcium (8.4-10.2) mg/dL Urine Test (NEGATIVE) Salicylates (15-30) mg/dL Urine Opiates Screen Not Detected (Not Detect) Urine Fentanyl Screen POSITIVE H (Not Detect) Acetaminophen (<30) mcg/mL Ur Barbiturates Screen Not Detected (Not Detect) Ur Phencyclidine Scrn Not Detected (Not Detect) Ur Amphetamines Screen Not Detected (Not Detect) U Benzodiazepines Scrn Not Detected (Not Detect) Urine Cocaine Screen Not Detected (Not Detect) U Marijuana (THC) Screen POSITIVE H (Not Detect) Ethyl Alcohol mg/dL <UZAIR Hall - Last Filed: 09/26/22 23:37> Lab Results 09/26/22 09/26/22 09/26/22 Range/Units 22:24 22:24 22:24 WBC 8.6 (4.8-10.8) X10*3/uL RBC 4.18 L (4.20-5.50) X10*6/uL Hgb 12.0 (12.0-16.0) g/dl Hct 37.2 (37.0-47.0) % MCV 89.0 (80.0-98.0) fL MCH 28.7 (27.0-33.0) pg MCHC 32.3 (31.0-35.0) g/dl RDW 13.2 (11.0-16.0) % Plt Count 244 (160-400) X10*3/uL MPV 11.1 (9.4-12.3) fL Absolute Nucleated RBC 0.000 (0.0-0.012) X10*3/uL Nucleated RBC % (auto) 0.0 (0.0-0.2) /100WBC Sodium 142 (135-145) mmol/L Potassium 3.4 (3.3-5.1) mmol/L Chloride 106 (96-108) mmol/L Carbon Dioxide 24 (22-29) mmol/L Anion Gap 15 (12-20) BUN 8 L (9-16) mg/dL Creatinine 0.70 (0.5-1.4) mg/dL Estim Creat Clear Calc 114.2 Estimated GFR > 60 Random Glucose 93 (60-115) mg/dL Calcium 9.6 (8.4-10.2) mg/dL Urine Test NEGATIVE (NEGATIVE) Salicylates < 5.0 L (15-30) mg/dL Urine Opiates Screen (Not Detect) Urine Fentanyl Screen (Not Detect) Acetaminophen < 1 (<30) mcg/mL Ur Barbiturates Screen (Not Detect) Ur Phencyclidine Scrn (Not Detect) Ur Amphetamines Screen (Not Detect) U Benzodiazepines Scrn (Not Detect) Urine Cocaine Screen (Not Detect) U Marijuana (THC) Screen (Not Detect) Ethyl Alcohol < 10 mg/dL 09/26/22 Range/Units 22:24 WBC (4.8-10.8) X10*3/uL RBC (4.20-5.50) X10*6/uL Hgb (12.0-16.0) g/dl Hct (37.0-47.0) % MCV (80.0-98.0) fL MCH (27.0-33.0) pg MCHC (31.0-35.0) g/dl RDW (11.0-16.0) % Plt Count (160-400) X10*3/uL MPV (9.4-12.3) fL Absolute Nucleated RBC (0.0-0.012) X10*3/uL Nucleated RBC % (auto) (0.0-0.2) /100WBC Sodium (135-145) mmol/L Potassium (3.3-5.1) mmol/L Chloride (96-108) mmol/L Carbon Dioxide (22-29) mmol/L Anion Gap (12-20) BUN (9-16) mg/dL Creatinine (0.5-1.4) mg/dL Estim Creat Clear Calc Estimated GFR Random Glucose (60-115) mg/dL Calcium (8.4-10.2) mg/dL Urine Test (NEGATIVE) Salicylates (15-30) mg/dL Urine Opiates Screen Not Detected (Not Detect) Urine Fentanyl Screen POSITIVE H (Not Detect) Acetaminophen (<30) mcg/mL Ur Barbiturates Screen Not Detected (Not Detect) Ur Phencyclidine Scrn Not Detected (Not Detect) Ur Amphetamines Screen Not Detected (Not Detect) U Benzodiazepines Scrn Not Detected (Not Detect) Urine Cocaine Screen Not Detected (Not Detect) U Marijuana (THC) Screen POSITIVE H (Not Detect) Ethyl Alcohol mg/dL <Lolita Gamez MD - Last Filed: 09/27/22 08:52> Critical Care Time Critical Care Time Critical Care Time: No <UZAIR Hall - Last Filed: 09/26/22 23:37> Discharge Plan Discharge Clinical Impression: Suicidal ideation, Depression, Opiate misuse <UZAIR Hall - Last Filed: 09/26/22 23:37> Patient Disposition: Home, Self-Care <UZAIR Hall - Last Filed: 09/26/22 23:37> Instructions: Opioid Use Disorder (ED), Opioid Withdrawal (ED) <UZAIR Hall - Last Filed: 09/26/22 23:37> Additional Instructions: Follow-up with the Suboxone clinic tomorrow morning. <UZAIR Hall - Last Filed: 09/26/22 23:37> Prescriptions: No Action promethazine 25 mg tablet 25 mg PO TID PRN (Reason: nausea and vomiting) Qty: 14 0RF cefuroxime axetil 500 mg tablet 500 mg PO BID Qty: 20 0RF ondansetron HCl [Zofran] 4 mg tablet 4 mg PO Q8H PRN (Reason: nausea and vomiting) Qty: 10 0RF ondansetron 4 mg tablet,disintegrating 4 mg PO TID PRN (Reason: nausea and vomiting) 5 Days Qty: 10 0RF <UZAIR Hall - Last Filed: 09/26/22 23:37> Referrals: Sara Hills MD [Primary Care Provider] - <UZAIR Hall - Last Filed: 09/26/22 23:37>
[2022-09-26 23:45] LABS: Acetaminophen LAB < 1 mcg/mL (<30); Salicylate < 5.0 mg/dL (15-30)
[2022-09-26] MEDS: Acetaminophen 325 MG TABLET 975 MG PO (23:55)
[2022-09-27] VITALS: BP 127/84; PULSE 85; RESP 14; TEMP 36.9; O2SAT 98
--- NOTE | 2022-09-27 00:24 | PC.NURSE ---
ELOISE leigh completed at this time.
[2022-09-27 02:15] VITALS: BP 128/82; PULSE 52; RESP 16; TEMP 36.9; O2SAT 98
[2022-09-27] MEDS: diphenhydrAMINE HCL 25 MG CAPSULE PO (02:22)
[2022-09-27 04:16] VITALS: BP 132/83; PULSE 54; RESP 16; TEMP 36.9; O2SAT 99
[2022-09-27] MEDS: Buprenorphine/Naloxone 4/1 mg FILM 1 FILM SUBLINGUAL (08:54)
--- NOTE | 2022-09-27 10:18 | MHC.CARE ---
Pt is a 32 y/o partnered, [place]ian speaking female who is previously unknown to the CARE Team. Yesterday, pt presented to the ED seeking detox and endorsing SI.? Pt stated she was expressing anxiety and depression surrounding her family?s discovery of her abusing Percocet.? This discovery has caused discord within the family.? Tells me this has caused a lot of issues.? Pt reports she started using at the age of 20 had a period where she was clean, and had relapsed about a year and half ago and has been using every day.? Pt is alert and oriented x4 and is assessed for risk in her room in the Main ED.? She is sitting in bed at the time and is stating she is experiencing withdrawal sx. Pt is engaged in the assessment and appears to be in discomfort.? She is dressed in hospital attire and appears her stated age.? She denies HI, SI, , and self-harm urges.? She denies AVH, states she has a hx of a bipolar dx, and reports her sleep and appetite are good.? Pt stated she wants to get involved with an MAT program.? Pt?s eye contact and speech are unremarkable.? Memory, concentration, judgement, insight, and impulse control are good.? Pt appears to be struggling with an addiction; her SI at the time appeared to be in the context of her substance use, the recent discovery of that substance use, and the subsequent discord withing the family that resulted. [facility]. Plan is for pt to be discharged home.? This plan was discussed with and agreed upon by ED provider Dr. Gamez and CARE Team manager transfusion clinician Adamaris ELLIS.
== END 2022-09-27 09:18 | disposition home or self-care (01) ==
PROVIDERS: Physician Assistant; Emergency Provider Student in an Organized Health Care Education/Training Program; PCP Pediatrics Adolescent Medicine
DX: R45.851 Suicidal ideations (principal); F32.A Depression, unspecified; F11.10 Opioid abuse, uncomplicated; R51.9 Headache, unspecified; F41.9 Anxiety disorder, unspecified; F19.10 Other psychoactive substance abuse, uncomplicated; F12.90 Cannabis use, unspecified, uncomplicated
CPT/HCPCS: 36415; 80048; 80143; 80179; 80307; 81025; 82077; 85027; 99285

== ENCOUNTER → 2022-10-12 09:11 | Outpatient (BNVA) | payer OTHER, SELFPAY | PROVIDERS: PCP Pediatrics Adolescent Medicine; Visit Provider Nurse Practitioner Psychiatric/Mental Health | DX: F11.20 Opioid dependence, uncomplicated (principal); Z51.81 Encounter for therapeutic drug level monitoring; Z79.899 Other long term (current) drug therapy | CPT/HCPCS: 80305 ==

== ENCOUNTER → 2022-10-26 09:30 | Outpatient (BNVA) | payer OTHER, SELFPAY | PROVIDERS: PCP Pediatrics Adolescent Medicine; Visit Provider Nurse Practitioner Psychiatric/Mental Health | DX: Z51.81 Encounter for therapeutic drug level monitoring (principal); F11.20 Opioid dependence, uncomplicated | CPT/HCPCS: 80305 ==

== ENCOUNTER → 2022-11-10 09:40 | Outpatient (BNVA) | payer OTHER, SELFPAY | PROVIDERS: PCP Pediatrics Adolescent Medicine; Visit Provider Nurse Practitioner Psychiatric/Mental Health | DX: Z51.81 Encounter for therapeutic drug level monitoring (principal) ==

== ENCOUNTER 2022-11-16 21:30 | Emergency (ER) | payer OTHER, SELFPAY ==
[2022-11-16 21:59] VITALS: BP 162/91; PULSE 52; RESP 16; TEMP 36.3; O2SAT 99; BMI 21.4
--- NOTE | 2022-11-16 21:59 | ED_ITS ---
HPI - Nausea/Vomiting/Diarrhea General Chief complaint: Nausea/Vomiting/Diarrhea <UZAIR Savage - Last Filed: 11/16/22 22:03> Stated complaint: vomiting,dehydration <UZAIR Savage - Last Filed: 11/16/22 22:03> Time Seen by Provider: 11/17/22 01:20 <UZAIR Savage - Last Filed: 11/16/22 22:03> Source: patient <Lolita Gamez MD - Last Filed: 11/17/22 05:38> Mode of arrival: ambulatory <Lolita Gamez MD - Last Filed: 11/17/22 05:38> Limitations: no limitations <Lolita Gamez MD - Last Filed: 11/17/22 05:38> History of Present Illness HPI Narrative: 32-year-old female came in for evaluation of nausea, vomiting, upper abdominal cramps symptoms started 3 days ago. No sick contacts, no recent travel, no recent use of antibiotic, patient had similar episode in the past. No history of intra-abdominal surgery. Patient is homosexual declined chance of pain . No dysuria or frequency urination. <Lolita Gamez MD - Last F iled: 11/17/22 05:38> Related Data Home medications: Previous Rx's Medication Instructions Recorded cefuroxime axetil 500 mg tablet 500 mg PO BID #20 tabs 09/10/21 ondansetron HCl 4 mg tablet 4 mg PO Q8H PRN nausea and 09/10/21 (Zofran) vomiting #10 tabs ondansetron 4 mg disintegrating 4 mg PO TID PRN nausea and 08/18/22 tablet vomiting 5 days #10 tabs naloxone 4 mg/actuation nasal 4 mg intranasal Q2M PRN opioid 09/28/22 spray (Narcan) overdose #2 ea hydroxyzine HCl 50 mg tablet 50 mg PO TID PRN anxiety #60 tabs 10/14/22 sennosides 8.6 mg capsule (senna) 8.6 mg PO DAILY PRN constipation 10/26/22 #30 caps buprenorphine 300 mg/1.5 mL 300 mg (1.5 mL) subcut ONCE #1.5 mL 11/05/22 solution,exten.rel.subcutaneous syringe (Sublocade) buprenorphine 8 mg-naloxone 2 mg 1 film sublingual BID #42 ea 11/10/22 sublingual film (Suboxone) omeprazole magnesium 20 mg 20 mg PO BID #30 tabs 11/17/22 tablet,delayed release (Prilosec OTC) ondansetron 4 mg disintegrating 4 mg PO Q8-12H PRN nausea and 11/17/22 tablet vomiting #4 tabs <UZAIR Savage - Last Filed: 11/16/22 22:03> Allergies/Adverse reactions: Allergies Allergy/AdvReac Type Severity Reaction Status Date / Time moxifloxacin Allergy Vomiting Verified 10/26/22 09:41 <UZAIR Savage - Last Filed: 11/16/22 22:03> Review of Systems Review of Systems: All other systems are reviewed and are negative Constitutional: Reports as per HPI and Reports no additional constitutional complaints Eyes: Reports as per HPI and Reports no additional eye complaints Reports system reviewed and no additional complaints, except as documented Cardiovascular: Reports as per HPI and Reports no additional cardiovascular complaints Respiratory: Reports as per HPI and Reports no additional respiratory complaints Gastrointestinal: Reports as per HPI and Reports no additional gastrointestinal complaints Genitourinary: Reports no additional female genitourinary complaints Musculoskeletal: Reports no additional musculoskeletal complaints Skin/Breast: Reports system reviewed and no additional complaints, except as docu Psychiatric: Reports no additional psychiatric complaints Endocrine: Reports no additional endocrine complaints Hematologic/Lymphatic: Reports no additional hematologic/lymphatic complaints Allergic/Immunologic: Reports no additional allergic/immunologic complaints Reports system reviewed and no additional complaints, except as documented and Reports Abnormal speech present <Lolita Gamez MD - Last Filed: 11/17/22 05:38> [facility] Past Medical History Medical History: Medical History Nephrolithiasis <UZAIR Savage - Last Filed: 11/16/22 22:03> Social History Social History: Social History Alcohol intake: never Patient Tobacco Use Status: Never used Tobacco Substance Use Type: Marijuana Advance Directives: No service: No Current occupational status: employed <UZAIR Savage - Last Filed: 11/16/22 22:03> Physical Exam Vital Signs: Vital Signs: Last Vital Signs Temp 98.9 F 11/17/22 03:31 Pulse 60 11/17/22 03:31 Resp 16 11/17/22 03:31 BP 104/60 11/17/22 03:31 Pulse Ox 99 11/17/22 03:31 O2 Del Method 11/17/22 03:31 BMI result Body Mass Index 21.4 <UZAIR Savage - Last Filed: 11/16/22 22:03> Vital Signs: Last Vital Signs Temp 98.9 F 11/17/22 03:31 Pulse 60 11/17/22 03:31 Resp 16 11/17/22 03:31 BP 104/60 11/17/22 03:31 Pulse Ox 99 11/17/22 03:31 O2 Del Method 11/17/22 03:31 BMI result Body Mass Index 21.4 Vital signs have been reviewed as appeared to be correct. Blood pressure normal. Heart rate normal. Respiration rate normal. Temperature normal. Oxygen saturation normal. Appearance: Alert. Oriented X3. No acute distress. Head: Normal external exam. Normocephalic. Atraumatic. No Mont[place] signs noted. No raccoon eyes noted Eyes: PERRLA. EOMI. Conjunctiva and sclera normal. Eyelids normal. ENT: TM's Normal. Pharynx normal. Uvula midline. Moist mucous membranes. No trismus noted. No drooling noted. No muffled voice noted. Neck: Normal inspection. Neck supple. FROM. No adenopathy. Thyroid Normal. No meningeal signs. No neck mass noted. CVS: Normal heart rate and rhythm. Heart sound normal. No murmurs noted. Pulses normal throughout. Respiratory: No respiratory distress. Painless inspiration. Breath sounds normal. No wheezes/rales/rhonchi noted. Chest nontender. No accessory muscle usage noted or decreased air movement noted. Abdomen: Soft, mild epigastric tenderness, no rebound tenderness, no guarding.. Bowel sounds normal in all 4 quadrants. No distention noted. No organomegaly noted. No visible injury noted. Back: No CVA tenderness. Full range of motion noted. Skin: Skin warm and dry. Normal skin color. Normal skin turgor. No rashes/lesions/lacerations noted. Extremities: No lower extremity edema. Extremities exhibit normal range of motion. Extremities nontender. Neuro: Oriented X 3. Cranial nerve exam: II-XII are grossly intact No motor deficit. No sensory deficit. Reflexes normal. <Lolita Gamez MD - Last Filed: 11/17/22 05:38> Course Course Course Narrative: [id number] - 32yoF presenting to the ED c c/o of N/V x 3 days worse today. Upper abd cramping only with vomiting. associated constipation and last BM x 2 days ago. LMP 1 month ago. Has a . Denies any other symptoms complaints or concerns at this time. Plan: Will obtain labs, UA, COVID/RSV/flu swab. Patient will be sent back to the waiting room to be evaluated in the ED. <UZAIR Savage - Last Filed: 11/16/22 22:03> Reevaluation(s) Reevaluation #1: 32-year-old female came in with upper abdominal pain with nausea and vomiting x3 days, unremarkable workup for acute pathology, patient improved and feels no pain, able to tolerate p.o. intake <Lolita Gamez MD - Last Filed: 11/17/22 05:38> Medications Administered Discontinued Medications Generic Name Dose Route Start Last Admin Trade Name Freq PRN Reason Stop Dose Admin Al Hydroxide/Mg Hydroxide 30 ml 11/17/22 01:44 11/17/22 02:03 Magnesium Hydrox/Alum Hydrox 30 Ml Oral.Susp PO 11/17/22 01:45 30 ml ONCE ONE Administration Famotidine 20 mg 11/17/22 01:44 11/17/22 02:04 Famotidine/Pf 20 Mg/2 Ml Vial IVPUSH 11/17/22 01:45 20 mg ONCE ONE Administration Sodium Chloride 1,000 mls @ 999 mls/hr 11/17/22 01:44 11/17/22 04:04 Ns IV 11/17/22 02:44 Infused .Q1H1M ONE Infusion Ondansetron HCl 4 mg 11/17/22 01:44 11/17/22 02:04 Ondansetron Hcl 4 Mg/2 Ml Vial IVPUSH 11/17/22 01:45 4 mg ONCE ONE Administration <UZAIR Savage - Last Filed: 11/16/22 22:03> Medications Administered Discontinued Medications Generic Name Dose Route Start Last Admin Trade Name Freq PRN Reason Stop Dose Admin Al Hydroxide/Mg Hydroxide 30 ml 11/17/22 01:44 11/17/22 02:03 Magnesium Hydrox/Alum Hydrox 30 Ml Oral.Susp PO 11/17/22 01:45 30 ml ONCE ONE Administration Famotidine 20 mg 11/17/22 01:44 11/17/22 02:04 Famotidine/Pf 20 Mg/2 Ml Vial IVPUSH 11/17/22 01:45 20 mg ONCE ONE Administration Sodium Chloride 1,000 mls @ 999 mls/hr 11/17/22 01:44 11/17/22 04:04 Ns IV 11/17/22 02:44 Infused .Q1H1M ONE Infusion Ondansetron HCl 4 mg 11/17/22 01:44 11/17/22 02:04 Ondansetron Hcl 4 Mg/2 Ml Vial IVPUSH 11/17/22 01:45 4 mg ONCE ONE Administration <Lolita Gamez MD - Last Filed: 11/17/22 05:38> Medical Decision Making Differential Diagnosis Differential Diagnoses: The differential diagnosis associated with the presentation includes (Gastroenteritis, food poisoning, dehydration, electrolyte disturbance, UTI.) <Lolita Gamez MD - Last Filed: 11/17/22 05:38> Lab Data MDM Lab Attestation statement: I reviewed the patient's lab results. <Lolita Gamez MD - Last Filed: 11/17/22 05:38> Result Diagrams: : 11/16/22 22:33 11/16/22 22:33 <UZAIR Savage - Last Filed: 11/16/22 22:03> Labs: Lab Results 11/16/22 11/16/22 11/16/22 Range/Units 22:33 22:33 22:33 WBC 9.2 (4.8-10.8) X10*3/uL RBC 4.60 (4.20-5.50) X10*6/uL Hgb 13.4 (12.0-16.0) g/dl Hct 39.2 (37.0-47.0) % MCV 85.2 (80.0-98.0) fL MCH 29.1 (27.0-33.0) pg MCHC 34.2 (31.0-35.0) g/dl RDW 13.2 (11.0-16.0) % Plt Count 269 (160-400) X10*3/uL MPV 10.5 (9.4-12.3) fL Immature Gran % (Auto) 0.2 (0.0-0.4) % Neut % (Auto) 84.0 H (45-73) % Lymph % (Auto) 11.8 L (20-40) % [place] % (Auto) 3.8 (2-11) % Eos % (Auto) 0.0 (0-4) % Baso % (Auto) 0.2 (0-2) % Lymph # (Auto) 1.1 L (1.2-4.9) X10*3/uL [place] # (Auto) 0.4 (0.1-1.2) X10*3/uL Eos # (Auto) 0.0 (0.0-0.4) X10*3/uL Baso # (Auto) 0.0 (0.0-0.2) X10*3/uL Abs Immat Gran (auto) 0.02 (0.00-0.03) X10*3/uL Absolute Neuts (auto) 7.7 (2.0-8.3) x10*3/uL Absolute Nucleated RBC 0.000 (0.0-0.012) X10*3/uL Nucleated RBC % (auto) 0.0 (0.0-0.2) /100WBC PT 12.7 (10.0-13.1) SEC INR 1.1 (0.9-1.1) Sodium 140 (135-145) mmol/L Potassium 3.8 (3.3-5.1) mmol/L Chloride 107 (96-108) mmol/L Carbon Dioxide 21 L (22-29) mmol/L Anion Gap 16 (12-20) BUN 13 (9-16) mg/dL Creatinine 0.66 (0.5-1.4) mg/dL Estim Creat Clear Calc 105.7 Estimated GFR > 60 Random Glucose 134 H (60-115) mg/dL Calcium 9.8 (8.4-10.2) mg/dL Magnesium 1.8 (1.6-2.6) mg/dL Total Bilirubin 0.6 (0.0-1.0) mg/dL AST 12 (5-31) U/L ALT 8 (0-31) U/L Alkaline Phosphatase 86 (39-117) U/L Total Protein 7.4 (6.5-8.0) g/dL Albumin 4.5 (3.5-5.0) g/dL Lipase 16 (8-78) U/L Beta HCG, Quant < 2 mIU/mL Urine Color Urine Appearance Urine pH (5.0-9.0) Ur Specific [place] (1.005-1.025) Urine Protein (Neg-Trace) mg/dL Urine Glucose (UA) (Negative) mg/dL Urine Ketones (Negative) mg/dL Urine Blood (Negative) Urine Nitrite (Negative) Ur Leukocyte Esterase (Negative) Urine RBC (0-2) /HPF Urine WBC (0-5) /HPF Ur Squamous Epith Cells (0-2) /HPF Urine Bacteria (None Seen) Hyaline Casts (0-2) /LPF Urine Test (NEGATIVE) Influenza Type A (PCR) (Negative) Influenza Type B (PCR) (Negative) RSV RNA Qual (PCR) (Negative) SARS-CoV-2 RNA (RT-PCR) (Negative) 11/16/22 11/17/22 11/17/22 Range/Units 22:33 02:08 02:08 WBC (4.8-10.8) X10*3/uL RBC (4.20-5.50) X10*6/uL Hgb (12.0-16.0) g/dl Hct (37.0-47.0) % MCV (80.0-98.0) fL MCH (27.0-33.0) pg MCHC (31.0-35.0) g/dl RDW (11.0-16.0) % Plt Count (160-400) X10*3/uL MPV (9.4-12.3) fL Immature Gran % (Auto) (0.0-0.4) % Neut % (Auto) (45-73) % Lymph % (Auto) (20-40) % [place] % (Auto) (2-11) % Eos % (Auto) (0-4) % Baso % (Auto) (0-2) % Lymph # (Auto) (1.2-4.9) X10*3/uL [place] # (Auto) (0.1-1.2) X10*3/uL Eos # (Auto) (0.0-0.4) X10*3/uL Baso # (Auto) (0.0-0.2) X10*3/uL Abs Immat Gran (auto) (0.00-0.03) X10*3/uL Absolute Neuts (auto) (2.0-8.3) x10*3/uL Absolute Nucleated RBC (0.0-0.012) X10*3/uL Nucleated RBC % (auto) (0.0-0.2) /100WBC PT (10.0-13.1) SEC INR (0.9-1.1) Sodium (135-145) mmol/L Potassium (3.3-5.1) mmol/L Chloride (96-108) mmol/L Carbon Dioxide (22-29) mmol/L Anion Gap (12-20) BUN (9-16) mg/dL Creatinine (0.5-1.4) mg/dL Estim Creat Clear Calc Estimated GFR Random Glucose (60-115) mg/dL Calcium (8.4-10.2) mg/dL Magnesium (1.6-2.6) mg/dL Total Bilirubin (0.0-1.0) mg/dL AST (5-31) U/L ALT (0-31) U/L Alkaline Phosphatase (39-117) U/L Total Protein (6.5-8.0) g/dL Albumin (3.5-5.0) g/dL Lipase (8-78) U/L Beta HCG, Quant mIU/mL Urine Color Dark Yellow Urine Appearance Cloudy Urine pH 6.0 (5.0-9.0) Ur Specific [place] >= 1.030 H (1.005-1.025) Urine Protein 100 (2+) H (Neg-Trace) mg/dL Urine Glucose (UA) Negative (Negative) mg/dL Urine Ketones 40 (Negative) mg/dL Urine Blood Negative (Negative) Urine Nitrite Negative (Negative) Ur Leukocyte Esterase Negative (Negative) Urine RBC 0-2 (0-2) /HPF Urine WBC 0-5 (0-5) /HPF Ur Squamous Epith Cells >20 (0-2) /HPF Urine Bacteria 4+ (None Seen) Hyaline Casts 3-5 (0-2) /LPF Urine Test NEGATIVE (NEGATIVE) Influenza Type A (PCR) NEGATIVE (Negative) Influenza Type B (PCR) NEGATIVE (Negative) RSV RNA Qual (PCR) NEGATIVE (Negative) SARS-CoV-2 RNA (RT-PCR) NEGATIVE (Negative) <UZAIR Savage - Last Filed: 11/16/22 22:03> Lab Results 11/16/22 11/16/22 11/16/22 Range/Units 22:33 22:33 22:33 WBC 9.2 (4.8-10.8) X10*3/uL RBC 4.60 (4.20-5.50) X10*6/uL Hgb 13.4 (12.0-16.0) g/dl Hct 39.2 (37.0-47.0) % MCV 85.2 (80.0-98.0) fL MCH 29.1 (27.0-33.0) pg MCHC 34.2 (31.0-35.0) g/dl RDW 13.2 (11.0-16.0) % Plt Count 269 (160-400) X10*3/uL MPV 10.5 (9.4-12.3) fL Immature Gran % (Auto) 0.2 (0.0-0.4) % Neut % (Auto) 84.0 H (45-73) % Lymph % (Auto) 11.8 L (20-40) % [place] % (Auto) 3.8 (2-11) % Eos % (Auto) 0.0 (0-4) % Baso % (Auto) 0.2 (0-2) % Lymph # (Auto) 1.1 L (1.2-4.9) X10*3/uL [place] # (Auto) 0.4 (0.1-1.2) X10*3/uL Eos # (Auto) 0.0 (0.0-0.4) X10*3/uL Baso # (Auto) 0.0 (0.0-0.2) X10*3/uL Abs Immat Gran (auto) 0.02 (0.00-0.03) X10*3/uL Absolute Neuts (auto) 7.7 (2.0-8.3) x10*3/uL Absolute Nucleated RBC 0.000 (0.0-0.012) X10*3/uL Nucleated RBC % (auto) 0.0 (0.0-0.2) /100WBC PT 12.7 (10.0-13.1) SEC INR 1.1 (0.9-1.1) Sodium 140 (135-145) mmol/L Potassium 3.8 (3.3-5.1) mmol/L Chloride 107 (96-108) mmol/L Carbon Dioxide 21 L (22-29) mmol/L Anion Gap 16 (12-20) BUN 13 (9-16) mg/dL Creatinine 0.66 (0.5-1.4) mg/dL Estim Creat Clear Calc 105.7 Estimated GFR > 60 Random Glucose 134 H (60-115) mg/dL Calcium 9.8 (8.4-10.2) mg/dL Magnesium 1.8 (1.6-2.6) mg/dL Total Bilirubin 0.6 (0.0-1.0) mg/dL AST 12 (5-31) U/L ALT 8 (0-31) U/L Alkaline Phosphatase 86 (39-117) U/L Total Protein 7.4 (6.5-8.0) g/dL Albumin 4.5 (3.5-5.0) g/dL Lipase 16 (8-78) U/L Beta HCG, Quant < 2 mIU/mL Urine Color Urine Appearance Urine pH (5.0-9.0) Ur Specific [place] (1.005-1.025) Urine Protein (Neg-Trace) mg/dL Urine Glucose (UA) (Negative) mg/dL Urine Ketones (Negative) mg/dL Urine Blood (Negative) Urine Nitrite (Negative) Ur Leukocyte Esterase (Negative) Urine RBC (0-2) /HPF Urine WBC (0-5) /HPF Ur Squamous Epith Cells (0-2) /HPF Urine Bacteria (None Seen) Hyaline Casts (0-2) /LPF Urine Test (NEGATIVE) Influenza Type A (PCR) (Negative) Influenza Type B (PCR) (Negative) RSV RNA Qual (PCR) (Negative) SARS-CoV-2 RNA (RT-PCR) (Negative) 11/16/22 11/17/22 11/17/22 Range/Units 22:33 02:08 02:08 WBC (4.8-10.8) X10*3/uL RBC (4.20-5.50) X10*6/uL Hgb (12.0-16.0) g/dl Hct (37.0-47.0) % MCV (80.0-98.0) fL MCH (27.0-33.0) pg MCHC (31.0-35.0) g/dl RDW (11.0-16.0) % Plt Count (160-400) X10*3/uL MPV (9.4-12.3) fL Immature Gran % (Auto) (0.0-0.4) % Neut % (Auto) (45-73) % Lymph % (Auto) (20-40) % [place] % (Auto) (2-11) % Eos % (Auto) (0-4) % Baso % (Auto) (0-2) % Lymph # (Auto) (1.2-4.9) X10*3/uL [place] # (Auto) (0.1-1.2) X10*3/uL Eos # (Auto) (0.0-0.4) X10*3/uL Baso # (Auto) (0.0-0.2) X10*3/uL Abs Immat Gran (auto) (0.00-0.03) X10*3/uL Absolute Neuts (auto) (2.0-8.3) x10*3/uL Absolute Nucleated RBC (0.0-0.012) X10*3/uL Nucleated RBC % (auto) (0.0-0.2) /100WBC PT (10.0-13.1) SEC INR (0.9-1.1) Sodium (135-145) mmol/L Potassium (3.3-5.1) mmol/L Chloride (96-108) mmol/L Carbon Dioxide (22-29) mmol/L Anion Gap (12-20) BUN (9-16) mg/dL Creatinine (0.5-1.4) mg/dL Estim Creat Clear Calc Estimated GFR Random Glucose (60-115) mg/dL Calcium (8.4-10.2) mg/dL Magnesium (1.6-2.6) mg/dL Total Bilirubin (0.0-1.0) mg/dL AST (5-31) U/L ALT (0-31) U/L Alkaline Phosphatase (39-117) U/L Total Protein (6.5-8.0) g/dL Albumin (3.5-5.0) g/dL Lipase (8-78) U/L Beta HCG, Quant mIU/mL Urine Color Dark Yellow Urine Appearance Cloudy Urine pH 6.0 (5.0-9.0) Ur Specific [place] >= 1.030 H (1.005-1.025) Urine Protein 100 (2+) H (Neg-Trace) mg/dL Urine Glucose (UA) Negative (Negative) mg/dL Urine Ketones 40 (Negative) mg/dL Urine Blood Negative (Negative) Urine Nitrite Negative (Negative) Ur Leukocyte Esterase Negative (Negative) Urine RBC 0-2 (0-2) /HPF Urine WBC 0-5 (0-5) /HPF Ur Squamous Epith Cells >20 (0-2) /HPF Urine Bacteria 4+ (None Seen) Hyaline Casts 3-5 (0-2) /LPF Urine Test NEGATIVE (NEGATIVE) Influenza Type A (PCR) NEGATIVE (Negative) Influenza Type B (PCR) NEGATIVE (Negative) RSV RNA Qual (PCR) NEGATIVE (Negative) SARS-CoV-2 RNA (RT-PCR) NEGATIVE (Negative) <Lolita Gamez MD - Last Filed: 11/17/22 05:38> Discharge Plan Discharge Clinical Impression: Gastritis <UZAIR Savage - Last Filed: 11/16/22 22:03> Patient Disposition: Home, Self-Care <UZAIR Savage - Last Filed: 11/16/22 22:03> Instructions: Gastritis (ED) <UZAIR Savage - Last Filed: 11/16/22 22:03> Prescriptions: New omeprazole magnesium [Prilosec OTC] 20 mg tablet,delayed release (DR/EC) 20 mg PO BID Qty: 30 0RF ondansetron 4 mg tablet,disintegrating 4 mg PO Q8-12H PRN (Reason: nausea and vomiting) Qty: 4 0RF No Action hydroxyzine HCl 50 mg tablet 50 mg PO TID PRN (Reason: anxiety) Qty: 60 0RF Sublocade 300 mg/1.5 mL solution, extended rel syringe 300 mg subcut ONCE Qty: 1.5 1RF Rx Instructions: injection once every 28 days cefuroxime axetil 500 mg tablet 500 mg PO BID Qty: 20 0RF ondansetron HCl [Zofran] 4 mg tablet 4 mg PO Q8H PRN (Reason: nausea and vomiting) Qty: 10 0RF ondansetron 4 mg tablet,disintegrating 4 mg PO TID PRN (Reason: nausea and vomiting) 5 Days Qty: 10 0RF naloxone [Narcan] 4 mg/actuation spray,non-aerosol 4 mg intranasal Q2M PRN (Reason: opioid overdose) Qty: 2 0RF Rx Instructions: spray 1 dose into ONE nostril; alternate nostrils w each dose until help arrives senna 8.6 mg capsule 8.6 mg PO DAILY PRN (Reason: constipation) Qty: 30 0RF buprenorphine-naloxone [Suboxone] 8-2 mg film 1 film sublingual BID Qty: 42 0RF <UZAIR Savage - Last Filed: 11/16/22 22:03> Referrals: Saul Perez [Physician] - <UZAIR Savage - Last Filed: 11/16/22 22:03> Stand Alone Forms: Work/School Release <UZAIR Savage - Last Filed: 11/16/22 22:03>
[2022-11-16 22:38] LABS: MANUAL DIFF FLAG NO
[2022-11-16 22:40] LABS: Basophils Percent Auto 0.2 % (0-2); Hematocrit 39.2 % (37.0-47.0); Hemoglobin 13.4 g/dl (12.0-16.0); Imm Gran Abs Auto 0.02 X10*3/uL (0.00-0.03); Imm Gran Pct Auto 0.2 % (0.0-0.4); Lymphocytes Absolute Auto 1.1 X10*3/uL (1.2-4.9); Lymphocytes Percent Auto 11.8 % (20-40); Mean Corpuscular HGB Conc 34.2 g/dl (31.0-35.0); Mean Corpuscular Hemoglobin 29.1 pg (27.0-33.0); Mean Corpuscular Volume 85.2 fL (80.0-98.0); Mean Platelet Volume 10.5 fL (9.4-12.3); Monocytes Absolute Auto 0.4 X10*3/uL (0.1-1.2); Monocytes Percent Auto 3.8 % (2-11); Neutrophils Absolute Auto 7.7 x10*3/uL (2.0-8.3); Platelet Count 269 X10*3/uL (160-400); Red Cell Distribution Width 13.2 % (11.0-16.0); White Blood Count 9.2 X10*3/uL (4.8-10.8)
[2022-11-16 22:52] LABS: INTERNATIONAL NORM RATIO 1.1 (0.9-1.1); Prothrombin Time 12.7 SEC (10.0-13.1)
[2022-11-16 23:00] LABS: Alanine Aminotransferase 8 U/L (0-31); Albumin Level 4.5 g/dL (3.5-5.0); Alkaline Phosphatase 86 U/L (39-117); Anion Gap 16 (12-20); Aspartate Amino Transferase 12 U/L (5-31); Bilirubin Total 0.6 mg/dL (0.0-1.0); Blood Urea Nitrogen 13 mg/dL (9-16); Calcium 9.8 mg/dL (8.4-10.2); Carbon Dioxide 21 mmol/L (22-29); Chloride 107 mmol/L (96-108); Creatinine Clr Calc Pharmacy 105.7; Estimated Glomerular Filt Rate > 60; Glucose Random 134 mg/dL (60-115); Lipase 16 U/L (8-78); Magnesium 1.8 mg/dL (1.6-2.6); Potassium 3.8 mmol/L (3.3-5.1); Sodium 140 mmol/L (135-145); Total Protein 7.4 g/dL (6.5-8.0)
[2022-11-16 23:04] LABS: HCG Quantitative < 2 mIU/mL
[2022-11-16 23:24] LABS: Influenza A PCR NEGATIVE (Negative); Influenza B PCR NEGATIVE (Negative); Resp Syncy Virus RNA Qual PCR NEGATIVE (Negative); SARS COV2 PCR INHOUSE NEGATIVE (Negative)
[2022-11-17 01:17] VITALS: BP 109/59; PULSE 59; RESP 18; TEMP 37.2; O2SAT 99
[2022-11-17] MEDS: Magnesium Hydrox/Alum Hydrox 30 ML ORAL.SUSP PO (02:03)
[2022-11-17] MEDS: ondansetron HCL 4 MG/2 ML VIAL IVPUSH (02:04)
[2022-11-17] MEDS: Famotidine/PF 20 MG/2 ML VIAL IVPUSH (02:04)
[2022-11-17] MEDS: 0.9 % Sodium Chloride 1,000 ML 999 ML IV (02:04)
[2022-11-17 02:22] LABS: Appearance Urine Cloudy; Color Urine Dark Yellow; Glucose Urine UA Negative (Negative); Leukocyte Esterase Urine Negative (Negative); Nitrite Urine Negative (Negative); Specific Gravity - Urine >= 1.030 (1.005-1.025); UMIC TRIGGER UACC YES; Urine Blood Negative (Negative); Urine Ketones 40 mg/dL (Negative); Urine Protein 100 (2+) mg/dL (Neg-Trace)
[2022-11-17 02:23] LABS: UPreg QC Valid YES; Urine Pregnancy NEGATIVE (NEGATIVE)
[2022-11-17 02:27] LABS: Bacteria Urine 4+ (None Seen); RBC Urine 0-2 /HPF (0-2); Squamous Epithelial Cell Urine >20 /HPF (0-2); WBC Urine 0-5 /HPF (0-5)
[2022-11-17 03:31] VITALS: BP 104/60; PULSE 60; RESP 16; TEMP 37.2; O2SAT 99
[2022-11-17 06:04] VITALS: BP 111/67; PULSE 53; RESP 20; TEMP 37.1; O2SAT 97
== END 2022-11-17 06:05 | disposition home or self-care (01) ==
PROVIDERS: Physician Assistant Medical; Emergency Provider Emergency Medicine
DX: K29.70 Gastritis, unspecified, without bleeding (principal); R11.2 Nausea with vomiting, unspecified; Z20.828 Contact with and (suspected) exposure to other viral communicable diseases; F11.20 Opioid dependence, uncomplicated; F12.90 Cannabis use, unspecified, uncomplicated
CPT/HCPCS: 0241U; 36415; 80053; 81001; 81025; 83690; 83735; 84702; 85025; 85610; 96361; 96374; 96375; 99283; 99284; J2405

== ENCOUNTER 2022-12-01 09:39 | Outpatient (REF) | payer OTHER, SELFPAY ==
[2022-12-08 08:48] LABS: Buprenorphine 282
[2022-12-08 08:49] LABS: Naloxone 163; Norbuprenorphine 1335
== END 2022-12-01 09:40 | disposition home or self-care (01) ==
LOC: HO.LAB 09:39
PROVIDERS: Visit Provider Nurse Practitioner Psychiatric/Mental Health
DX: F11.90 Opioid use, unspecified, uncomplicated (principal); Z51.81 Encounter for therapeutic drug level monitoring; Z32.00 Encounter for pregnancy test, result unknown
CPT/HCPCS: 80305; 80348; 80362; 81025; 96372

== ENCOUNTER → 2022-12-29 09:22 | Outpatient (BNVA) | payer OTHER, SELFPAY | PROVIDERS: PCP Internal Medicine; Visit Provider Nurse Practitioner Psychiatric/Mental Health | DX: Z51.81 Encounter for therapeutic drug level monitoring (principal); F11.20 Opioid dependence, uncomplicated | CPT/HCPCS: 80305; 81025; 96372 ==

== ENCOUNTER → 2023-01-26 09:19 | Outpatient (BNVA) | payer OTHER, SELFPAY | PROVIDERS: PCP Internal Medicine; Visit Provider Nurse Practitioner Psychiatric/Mental Health | DX: Z51.81 Encounter for therapeutic drug level monitoring (principal); F11.20 Opioid dependence, uncomplicated | CPT/HCPCS: 80305; 81025; 96372 ==

== ENCOUNTER → 2023-03-02 09:54 | Outpatient (BNVA) | payer OTHER, SELFPAY | PROVIDERS: PCP Internal Medicine; Visit Provider Nurse Practitioner Psychiatric/Mental Health | DX: Z51.81 Encounter for therapeutic drug level monitoring (principal); F11.20 Opioid dependence, uncomplicated; Z32.02 Encounter for pregnancy test, result negative | CPT/HCPCS: 80305; 81025; 96372 ==

== ENCOUNTER → 2023-03-30 09:40 | Outpatient (BNVA) | payer OTHER, SELFPAY | PROVIDERS: PCP Internal Medicine; Visit Provider Nurse Practitioner Psychiatric/Mental Health | DX: F11.20 Opioid dependence, uncomplicated (principal); F12.20 Cannabis dependence, uncomplicated; Z51.81 Encounter for therapeutic drug level monitoring; Z32.02 Encounter for pregnancy test, result negative; Z79.899 Other long term (current) drug therapy | CPT/HCPCS: 80305; 81025; 96372 ==

== ENCOUNTER → 2023-04-27 09:58 | Outpatient (BNVA) | payer OTHER, SELFPAY | PROVIDERS: PCP Internal Medicine; Visit Provider Nurse Practitioner Psychiatric/Mental Health | DX: F11.20 Opioid dependence, uncomplicated (principal); Z51.81 Encounter for therapeutic drug level monitoring; F43.9 Reaction to severe stress, unspecified | CPT/HCPCS: 80305; 96372 ==

== ENCOUNTER 2023-05-28 09:45 | Outpatient (REF) | payer OTHER, SELFPAY ==
[2023-05-28 12:36] LABS: Alanine Aminotransferase 14 U/L (0-31); Albumin Level 4.3 g/dL (3.5-5.0); Alkaline Phosphatase 71 U/L (39-117); Aspartate Amino Transferase 15 U/L (5-31); Bilirubin Direct 0.2 mg/dL (0.0-0.5); Bilirubin Total 0.7 mg/dL (0.0-1.0); Total Protein 6.9 g/dL (6.5-8.0)
== END 2023-05-28 09:46 | disposition home or self-care (01) ==
LOC: HO.LAB 09:45
PROVIDERS: PCP Internal Medicine; Visit Provider Nurse Practitioner Psychiatric/Mental Health
DX: F11.20 Opioid dependence, uncomplicated (principal); Z51.81 Encounter for therapeutic drug level monitoring; Z32.01 Encounter for pregnancy test, result positive; Z79.899 Other long term (current) drug therapy
CPT/HCPCS: 36415; 80076; 80305; 81025; 96372

== ENCOUNTER 2023-05-28 09:45 | Outpatient (AMB) | payer OTHER, SELFPAY ==
--- NOTE | 2023-05-28 09:54 | A.OFFVIS_ITS ---
Intake Vital Signs 05/28/23 10:01 BP 120/82 Blood Pressure Location Lt radial Position Sitting Pulse 68 Pulse Source Pulse Oximeter Pulse Oximetry (%) 99 Oxygen Delivery Method Room Air Intake Visit Reasons: SUB Inj Intake Note: the patient presents for a sub inj Application Support Administrator Required: No Allergies moxifloxacin Allergy (Verified 05/28/23 10:03) Vomiting Do you need a note to return to daycare/school/sports/work: No HPI SUB Inj HPI Details Patient presents for OUD treatment follow up Tearful during visit Has not seen therapist in over a month--awaiting transfer to new clinician Decreased motivation, sleep intermittent, decreased appetite, tearfulness Family History -Father diagnosed with Bipolar I Patient reports she was previously being seen by Psychiatry [facility]. Medication trials include Lexapro, wellbutrin, Depakote, Seroquel, Abilify. Does not feel any of these were effective in addressing symptoms at that time Patient reports there was a?Bipolar diagnosis not clear. Does not endorse any hypomanic symptoms. [facility] Medical History Nephrolithiasis Social History Alcohol intake: never Patient Tobacco Use Status: Never used Tobacco Substance Use Type: Marijuana service: No Current occupational status: employed Review of Systems Const Reports as per HPI Physical Exam Vital Signs: Last Vital Signs Pulse 68 05/28/23 10:01 BP 120/82 05/28/23 10:01 Pulse Ox 99 05/28/23 10:01 Oxygen Delivery Method Room Air 05/28/23 10:01 Const General: cooperative and healthy appearing Skin General skin exam: no rashes or lesions noted Psych Appearance: well kempt Speech and movement: Clear speech present Affect: Anxious affect present Attitude: cooperative Thought process: Normal thought process present Thought content: Normal thought content present Insight: Good insight present (Psych) Judgement: Good judgement present (Psych) Results AMB 14 Panel Urine Drug Screen Urine Marijuana (THC) Positive Last Edit by Karen Jacome CMA on 05/28/23 10:11 Urine Cocaine Negative Last Edit by Karen Jacome CMA on 05/28/23 10:11 Urine Morphine Negative Last Edit by Karen Jacome CMA on 05/28/23 10:11 Urine Methamphetamine Negative Last Edit by Karen Jacome CMA on 05/28/23 10:11 Urine Amphetamine Negative Last Edit by Karen Jacome CMA on 05/28/23 10:1 1 Urine Benzodiazepine Negative Last Edit by Karen Jacome CMA on 05/28/23 10:11 Urine Barbiturates Negative Last Edit by Karen Jacome CMA on 05/28/23 10: 11 Urine Methadone Negative Last Edit by Karen Jacome CMA on 05/28/23 10:11 Urine Buprenorphine Positive Last Edit by Karen Jacome CMA on 05/28/23 10 :11 Urine Tricyclic Antidepressant Negative Last Edit by Karen Jacome CMA on 05/28/23 10:11 Urine MDMA Negative Last Edit by Karen Jacome CMA on 05/28/23 10:11 Urine Oxycodone Negative Last Edit by Karen Jacome CMA on 05/28/23 10:11 Urine Phencyclidine Negative Last Edit by Karen Jacome CMA on 05/28/23 10 :11 Urine Propoxyphene Negative Last Edit by Karen Jacome CMA on 05/28/23 10: 11 AMB Test Urine AMB Test Urine Negative Last Edit by Karen Jacome CMA on 10:15 Results Reviewed Results Reviewed: Laboratory Last Values [facility] Negative 05/28/23 10:04 POC Urine Buprenorphine Positive 05/28/23 10:04 POC Urine Morphine Negative 05/28/23 10:04 POC Urine Oxycodone Negative 05/28/23 10:04 POC Urine Methadone Negative 05/28/23 10:04 POC Urine Propoxyphene Negative 05/28/23 10:04 POC Urine Barbiturates Negative 05/28/23 10:04 POC U Tricyclic Antidpr Negative 05/28/23 10:04 POC Urine PCP Negative 05/28/23 10:04 POC Ur Amphetamines Negative 05/28/23 10:04 POC Ur Methamphetamine Negative 05/28/23 10:04 POC Urine MDMA Negative 05/28/23 10:04 POC Ur Benzodiazepine Negative 05/28/23 10:04 POC Urine Cocaine Negative 05/28/23 10:04 POC Ur Marijuana (THC) Positive 05/28/23 10:04 Assessment & Plan Assessment & Plan (1) Opioid use disorder: Code(s): F11.90 - Opioid use, unspecified, uncomplicated Plan: * Tolerated injection * Will trial mirtazapine 7.5 mg at bedtime for 1 week then increase to 2 tabs at bedtime. Discussed dosing time, side effects and goals treatment. Patient verbalized understanding * Follow-up 4 weeks. Encourage patient to call office before hand should she need to. * Reminded of lab work Orders: Orders AMB 14 Panel Urine Drug Screen Today Z51.81 - Encounter for therapeutic drug level monitoring AMB HCG Urine Test Today Z32.01 - Encounter for test, result positive, Z32.02 - Encounter for test, result negative Medications: New mirtazapine take one tab at bedtime for one week, then increase to 2 tabs at bedtime 7.5 mg PO BEDTIME 45 tabs 0RF Refilled hydroxyzine HCl 50 mg PO TID PRN 60 tabs 0RF anxiety Discontinued omeprazole magnesium (Prilosec OTC) Discontinued Reason: Patient no longer taking 20 mg PO BID 30 tabs 0RF ondansetron Discontinued Reason: Patient no longer taking 4 mg PO Q8-12H PRN 4 tabs 0RF nausea and vomiting cefuroxime axetil Discontinued Reason: Patient Completed Course 500 mg PO BID 20 tabs 0RF ondansetron HCl (Zofran) Discontinued Reason: Patient Completed Course 4 mg PO Q8H PRN 10 tabs 0RF nausea and vomiting ondansetron Discontinued Reason: Patient Completed Course 4 mg PO TID 5 days PRN 10 tabs 0RF nausea and vomiting Coding Level of Care Code Est Pt Level 4 (09694) Diagnoses Opioid use disorder F11.90
[2023-05-28 10:01] VITALS: BP 120/82; PULSE 68; O2SAT 99
== END 2023-05-28 10:39 | disposition home or self-care (01) ==
LOC: HO.HCC 09:45
PROVIDERS: PCP Internal Medicine; Visit Provider Nurse Practitioner Psychiatric/Mental Health
DX: Z32.02 Encounter for pregnancy test, result negative (principal); Z32.01 Encounter for pregnancy test, result positive; F11.20 Opioid dependence, uncomplicated; Z51.81 Encounter for therapeutic drug level monitoring
CPT/HCPCS: 99214; Q9991

== ENCOUNTER 2023-06-22 10:09 | Outpatient (AMB) | payer OTHER, SELFPAY ==
--- NOTE | 2023-06-22 10:12 | MHC.OFFVIS ---
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 Required: No Allergies moxifloxacin Allergy (Verified 06/22/23 10:12) Vomiting Do you need a note to return to daycare/school/sports/work: No PFSH Medical History Nephrolithiasis Social History Alcohol intake: never Patient Tobacco Use Status: Never used Tobacco Substance Use Type: Marijuana service: No Current occupational status: employed Physical Exam Vital Signs: Last Vital Signs Pulse 84 06/22/23 10:21 BP 124/72 06/22/23 10:21 Pulse Ox 98 06/22/23 10:21 Oxygen Delivery Method Room Air 06/22/23 10:21 Results AMB 14 Panel Urine Drug Screen Urine Marijuana (THC) Positive Last Edit by Karen Jacome CMA on 06/22/23 10:23 Urine Cocaine Negative Last Edit by Karen Jacome CMA on 06/22/23 10:23 Urine Morphine Negative Last Edit by Karen Jacome CMA on 06/22/23 10:23 Urine Methamphetamine Negative Last Edit by Karen Jacome CMA on 06/22/23 10:23 Urine Amphetamine Negative Last Edit by Karen Jacome CMA on 06/22/23 10:23 Urine Benzodiazepine Negative Last Edit by Karen Jacome CMA on 06/22/23 10:23 Urine Barbiturates Negative Last Edit by Karen Jacome CMA on 06/22/23 10:23 Urine Methadone Negative Last Edit by Karen Jacome CMA on 06/22/23 10:23 Urine Buprenorphine Positive Last Edit by Karen Jacome CMA on 06/22/23 10:23 Urine Tricyclic Antidepressant Negative Last Edit by Karen Jacome CMA on 06/22/23 10:23 Urine MDMA Negative Last Edit by Karen Jacome CMA on 06/22/23 10:23 Urine Oxycodone Negative Last Edit by Karen Jacome CMA on 06/22/23 10:23 Urine Phencyclidine Negative Last Edit by Karen Jacome CMA on 06/22/23 10:23 Urine Propoxyphene Negative Last Edit by Karen Jacome CMA on 06/22/23 10:23 AMB Test Urine AMB Test Urine Negative Last Edit by Karen Jacome CMA on 06/22/23 10:24 Results Reviewed Results Reviewed: Laboratory Last Values [facility] Negative 06/22/23 10:12 POC Urine Buprenorphine Positive 06/22/23 10:12 POC Urine Morphine Negative 06/22/23 10:12 POC Urine Oxycodone Negative 06/22/23 10:12 POC Urine Methadone Negative 06/22/23 10:12 POC Urine Propoxyphene Negative 06/22/23 10:12 POC Urine Barbiturates Negative 06/22/23 10:12 POC U Tricyclic Antidpr Negative 06/22/23 10:12 POC Urine PCP Negative 06/22/23 10:12 POC Ur Amphetamines Negative 06/22/23 10:12 POC Ur Methamphetamine Negative 06/22/23 10:12 POC Urine MDMA Negative 06/22/23 10:12 POC Ur Benzodiazepine Negative 06/22/23 10:12 POC Urine Cocaine Negative 06/22/23 10:12 POC Ur Marijuana (THC) Positive 06/22/23 10:12 Assessment & Plan Assessment & Plan Orders: Orders AMB 14 Panel Urine Drug Screen Today Z51.81 - Encounter for therapeutic drug level monitoring AMB HCG Urine Test Today Z32.01 - Encounter for test, result positive, Z32.02 - Encounter for test, result negative Coding Diagnoses
[2023-06-22 10:21] VITALS: BP 124/72; PULSE 84; O2SAT 98
--- NOTE | 2023-06-22 10:26 | AM.OFFVISNUR ---
Intake Vital Signs 06/22/23 10:21 BP 124/72 Blood Pressure Location Lt radial Position Sitting Pulse 84 Pulse Source Pulse Oximeter Pulse Oximetry (%) 98 Oxygen Delivery Method Room Air Intake Visit Reasons: SUB Inj Allergies moxifloxacin Allergy (Verified 06/22/23 10:12) Vomiting Nursing Note Pt here for four week OUD follow up, on 100mg Sublocade INJ. Pt states tolerating injection well. Pt reports good results on Mirtazapine, would like to continue on rx, needs refill. Pt gaurded, fidgeting during visit. Pt reports met with new therapist, has appt with therapist 06/23/23. Pt tolerated injection. Appt in 4 weeks. Office Meds Sublocade ER Performing Provider: Yuni Mendez CNP Administered by: Glenny Henderson RN on 06/22/23 11:03 Dose Route Admin Location Lot Number Expiration Date NDC Clinical Trial Data Manager 100 mg subcut RLQ [id number] 06/13/24 [address]-8 [employer]. Comments: T/W assessed for s/s of infection, no pain, no swelling, no redness, no exudate. Pt reminded to monitor for above and call the [facility]. Pt tolerated injection. Results AMB 14 Panel Urine Drug Screen Urine Marijuana (THC) Positive Last Edit by Karen Jacome CMA on 06/22/23 10:23 Urine Cocaine Negative Last Edit by Karen Jacome CMA on 06/22/23 10:23 Urine Morphine Negative Last Edit by Karen Jacome CMA on 06/22/23 10:23 Urine Methamphetamine Negative Last Edit by Karen Jacome CMA on 06/22/23 10:23 Urine Amphetamine Negative Last Edit by Karen Jacome CMA on 06/22/23 10:23 Urine Benzodiazepine Negative Last Edit by Karen Jacome CMA on 06/22/23 10:23 Urine Barbiturates Negative Last Edit by Karen Jacome CMA on 06/22/23 10:23 Urine Methadone Negative Last Edit by Karen Jacome CMA on 06/22/23 10:23 Urine Buprenorphine Positive Last Edit by Karen Jacome CMA on 06/22/23 10:23 Urine Tricyclic Antidepressant Negative Last Edit by Karen Jacome CMA on 06/22/23 10:23 Urine MDMA Negative Last Edit by Karen Jacome CMA on 06/22/23 10:23 Urine Oxycodone Negative Last Edit by Karen Jacome CMA on 06/22/23 10:23 Urine Phencyclidine Negative Last Edit by Karen Jacome CMA on 06/22/23 10:23 Urine Propoxyphene Negative Last Edit by Karen Jacome CMA on 06/22/23 10:23 AMB Test Urine AMB Test Urine Negative Last Edit by Karen Jacome CMA on 06/22/23 10:24 Coding Diagnoses Assessment & Plan Assessment & Plan Orders: Orders AMB Buprenorphine Injection - Patient Supplied Today F11.90 - Opioid use, unspecified, uncomplicated AMB 14 Panel Urine Drug Screen Today Z51.81 - Encounter for therapeutic drug level monitoring AMB HCG Urine Test Today Z32.01 - Encounter for test, result positive, Z32.02 - Encounter for test, result negative Medications: New mirtazapine 15 mg PO BEDTIME 30 tabs 3RF Discontinued mirtazapine take one tab at bedtime for one week, then increase to 2 tabs at bedtime Discontinued Reason: Doctor's Order 7.5 mg PO BEDTIME 45 tabs 0RF
== END 2023-06-22 10:46 | disposition home or self-care (01) ==
LOC: HO.HCC 10:09
PROVIDERS: PCP Internal Medicine; Visit Provider Nurse Practitioner Psychiatric/Mental Health
DX: Z32.02 Encounter for pregnancy test, result negative (principal); Z32.01 Encounter for pregnancy test, result positive; Z51.81 Encounter for therapeutic drug level monitoring; F11.90 Opioid use, unspecified, uncomplicated
CPT/HCPCS: Q9991

== ENCOUNTER → 2023-06-22 10:09 | Outpatient (BNVA) | payer OTHER, SELFPAY | PROVIDERS: PCP Internal Medicine; Visit Provider Nurse Practitioner Psychiatric/Mental Health | DX: F11.20 Opioid dependence, uncomplicated (principal); Z51.81 Encounter for therapeutic drug level monitoring; Z79.899 Other long term (current) drug therapy; Z32.02 Encounter for pregnancy test, result negative | CPT/HCPCS: 80305; 81025; 96372 ==

== ENCOUNTER 2023-07-27 10:05 | Outpatient (AMB) | payer OTHER, SELFPAY ==
--- NOTE | 2023-07-27 10:07 | AM.OFFVISNUR ---
Intake Vital Signs 07/27/23 10:17 BP 116/72 Blood Pressure Location Lt radial Position Sitting Pulse 90 Pulse Source Pulse Oximeter Pulse Oximetry (%) 99 Intake Visit Reasons: SUB Inj Intake Note: the patient is here for a sub inj Pharm Tech Required: No Allergies moxifloxacin Allergy (Verified 07/27/23 10:17) Vomiting Do you need a note to return to daycare/school/sports/work: No Results AMB 14 Panel Urine Drug Screen Urine Marijuana (THC) Positive Last Edit by Karen Jacome CMA on 07/27/23 10:18 Urine Cocaine Negative Last Edit by Karen Jacome CMA on 07/27/23 10:18 Urine Morphine Negative Last Edit by Karen Jacome CMA on 07/27/23 10:18 Urine Methamphetamine Negative Last Edit by Karen Jacome CMA on 07/27/23 10:18 Urine Amphetamine Negative Last Edit by Karen Jacome CMA on 07/27/23 10:18 Urine Benzodiazepine Negative Last Edit by Karen Jacome CMA on 07/27/23 10:18 Urine Barbiturates Negative Last Edit by Karen Jacome CMA on 07/27/23 10:18 Urine Methadone Negative Last Edit by Karen Jacome CMA on 07/27/23 10:18 Urine Buprenorphine Positive Last Edit by Karen Jacome CMA on 07/27/23 10:18 Urine Tricyclic Antidepressant Negative Last Edit by Karen Jacome CMA on 07/27/23 10:18 Urine MDMA Negative Last Edit by Karen Jacome CMA on 07/27/23 10:18 Urine Oxycodone Negative Last Edit by Karen Jacome CMA on 07/27/23 10:18 Urine Phencyclidine Negative Last Edit by Karen Jacome CMA on 07/27/23 10:18 Urine Propoxyphene Negative Last Edit by Karen Jacome CMA on 07/27/23 10:18 AMB Test Urine AMB Test Urine Negative Last Edit by Karen Jacome CMA on 07/27/23 10:19 Coding Assessment & Plan Assessment & Plan Orders: Orders AMB 14 Panel Urine Drug Screen Today Z51.81 - Encounter for therapeutic drug level monitoring AMB HCG Urine Test Today Z32.01 - Encounter for test, result positive, Z32.02 - Encounter for test, result negative
[2023-07-27 10:17] VITALS: BP 116/72; PULSE 90; O2SAT 99
== END 2023-07-27 10:49 | disposition home or self-care (01) ==
LOC: HO.HCC 10:05
PROVIDERS: PCP Internal Medicine
DX: Z32.02 Encounter for pregnancy test, result negative (principal); Z32.01 Encounter for pregnancy test, result positive; F11.90 Opioid use, unspecified, uncomplicated; Z51.81 Encounter for therapeutic drug level monitoring
CPT/HCPCS: Q9991

== ENCOUNTER → 2023-07-27 10:05 | Outpatient (BNVA) | payer OTHER, SELFPAY | PROVIDERS: PCP Internal Medicine | DX: F11.20 Opioid dependence, uncomplicated (principal) | CPT/HCPCS: 80305; 81025; 96372 ==

== ENCOUNTER 2023-08-06 04:26 | Emergency (ER) | payer OTHER, SELFPAY ==
--- NOTE | ~2023-08-06 | CT_ITS ---
EXAMINATION: CT ABDOMEN AND PELVIS WITHOUT CONTRAST CLINICAL INFORMATION: Left flank pain. Evaluate for kidney stone. COMPARISON: None available. TECHNIQUE: Multidetector volumetric imaging was performed from the superior aspect of the liver through the pubic symphysis. Sagittal and coronal reformatted images were obtained on the technologist's workstation. This CT examination was performed using dose optimization techniques as appropriate, variously including the following: *Automated exposure control *Adjustment of mA and/or kV according to patient size (this includes techniques or standardized protocols for targeted exams where dose is matched to indication/reason for exam; i.e. extremities or head) *Use of iterative reconstruction technique Note: Fleischner Society guidelines would not be followed in a patient of 33 years of age. DLP: 462 mGy-cm FINDINGS: LUNG BASES: Peripheral, somewhat curvilinear opacity of focal scarring in the posterior posteromedial right lower lobe. Small 0.4 cm solid noncalcified subpleural nodule is present in the left lower lobe (118, series 3). LIVER: The liver has normal size, shape, and attenuation. No evidence of liver mass or abscess. Mild periportal edema is suspected; this might be secondary to mild hypervolemia. Differential diagnosis includes hepatitis. Consider correlation with liver function tests. GALLBLADDER AND BILIARY TREE: Gallbladder is without radiopaque stones, wall thickening or pericholecystic fluid. No dilated bile ducts. PANCREAS: Normal. No edema, pancreatic ductal dilatation or mass. SPLEEN: Normal. ADRENAL GLANDS: Normal. KIDNEYS AND URETERS: The kidneys have normal size and cortical thickness. No evidence of stones in either kidney. Mild left hydronephrosis is caused by a 0.2 x 0.4 cm distal ureteral stone located just above the level of the ureterovesical junction. No perinephric edema or perinephric fluid collection. BLADDER: Normal. BOWEL AND PERITONEUM: Small hiatal hernia. No dilated loops of bowel. No evidence of appendicitis. No focal bowel wall thickening. No pneumoperitoneum. Trace amount of free fluid is seen in the right upper quadrant anterosuperior to the liver. ABDOMINAL WALL: A few scattered opacities within subcutaneous tissues of the abdominal wall are likely from injections. VASCULATURE: Unremarkable. LYMPH NODES: No pathologic sized lymph nodes in the abdomen or pelvis. No inguinal lymphadenopathy. PELVIC VISCERA: Uterus and adnexa are unremarkable. MUSCULOSKELETAL: Mild discovertebral degenerative changes of the visualized lower thoracic spine. Left lower iliac bone island. No acute or suspicious osseous abnormality. CT/CT abdomen pelvis wo IV con IMPRESSION: * Mild left hydronephrosis is caused by a 0.2 x 0.4 cm stone of the distal left ureter near the ureterovesical junction. * Mild periportal edema is suspected. Also, there is a small amount of free fluid in the right upper quadrant anterosuperior to liver. Findings could be secondary to hypervolemia.
[2023-08-06 04:47] VITALS: BP 163/99; PULSE 45; RESP 16; TEMP 36.7; O2SAT 99; BMI 27.5
[2023-08-06 04:54] LABS: Hematocrit 37.9 % (37.0-47.0); Hemoglobin 12.6 g/dl (12.0-16.0); Mean Corpuscular HGB Conc 33.2 g/dl (31.0-35.0); Mean Corpuscular Hemoglobin 29.9 pg (27.0-33.0); Mean Platelet Volume 10.2 fL (9.4-12.3); Platelet Count 266 X10*3/uL (160-400); Red Blood Count 4.21 X10*6/uL (4.20-5.50); Red Cell Distribution Width 12.8 % (11.0-16.0); White Blood Count 11.3 X10*3/uL (4.8-10.8)
[2023-08-06 05:00] LABS: Appearance Urine Cloudy; Color Urine Yellow; Glucose Urine UA Negative (Negative); Leukocyte Esterase Urine Negative (Negative); Nitrite Urine Negative (Negative); PH 5.5 (5.0-9.0); Specific Gravity - Urine >= 1.030 (1.005-1.025); UMIC TRIGGER UACC YES; Urine Blood Large (3+) (Negative); Urine Ketones Negative (Negative); Urine Protein 30 (1+) mg/dL (Neg-Trace)
[2023-08-06 05:05] LABS: Bacteria Urine 2+ (None Seen); Hyaline Casts Urine 0-2 /LPF (0-2); RBC Urine >20 /HPF (0-2); WBC Urine 0-5 /HPF (0-5)
[2023-08-06 05:09] LABS: Alanine Aminotransferase 20 U/L (0-31); Albumin Level 4.1 g/dL (3.5-5.0); Alkaline Phosphatase 78 U/L (39-117); Anion Gap 13 (12-20); Aspartate Amino Transferase 27 U/L (5-31); Bilirubin Total 0.6 mg/dL (0.0-1.0); Blood Urea Nitrogen 15 mg/dL (9-16); Carbon Dioxide 22 mmol/L (22-29); Chloride 109 mmol/L (96-108); Creatinine Clr Calc Pharmacy 103.8; Estimated Glomerular Filt Rate > 60; Glucose Random 145 mg/dL (60-115); Lipase 14 U/L (8-78); Potassium 3.7 mmol/L (3.3-5.1); Sodium 140 mmol/L (135-145); Total Protein 6.8 g/dL (6.5-8.0)
[2023-08-06] MEDS: ondansetron HCL 4 MG/2 ML VIAL IVPUSH (07:29)
[2023-08-06] MEDS: 0.9 % Sodium Chloride 1,000 ML 999 ML IV (07:42)
[2023-08-06] MEDS: Ketorolac Tromethamine 15 MG/ML VIAL IVPUSH (07:42)
[2023-08-06 08:16] LABS: HCG Quantitative < 2 mIU/mL
[2023-08-06 08:17] VITALS: BP 144/80; PULSE 42; RESP 16; TEMP 36.5; O2SAT 99
--- NOTE | 2023-08-06 10:03 | ED_ITS ---
HPI - Abdominal Pain General Chief Complaint: Abdominal Pain Stated Complaint: Flank pain Time Seen by Provider: 08/06/23 07:26 Source: patient Mode of arrival: ambulatory Limitations: no limitations History of Present Illness HPI narrative: 33-year-old female with history of opiate use disorder, urine tract infection, kidney stone who presents emergency department for evaluation of sudden onset of left lower quadrant pain which began this morning . The patient states the pain came on suddenly and was 6/10 at its worse, she points to her left lower quadrant area when she is asked to localize the pain. The pain is a constant, sharp pain with associated nausea. Patient states that the pain feels similar to a kidney stone that she had when she was 20 years old, at that time she required a lithotripsy. She denied fever but did have shaking chills. She had nausea with vomiting. She denied CP or dysuria. Patient does have history of opiate use disorder and is on Suboxone. Related Data Previous Rx's Medication Instructions Recorded naloxone 4 mg/actuation nasal 4 mg intranasal Q2M PRN opioid 09/28/22 spray (Narcan) overdose #2 ea sennosides 8.6 mg tablet (senna) 8.6 mg PO DAILY PRN for 11/23/22 constipation #30 tabs buprenorphine 8 mg-naloxone 2 mg 1 film sublingual DAILY #7 ea 02/19/23 sublingual film (Suboxone) buprenorphine 100 mg/0.5 mL 100 mg (0.5 mL) subcut ONCE #0.5 mL 05/24/23 solution,exten.rel.subcutaneous syringe (Sublocade) hydroxyzine HCl 50 mg tablet 50 mg PO TID PRN for anxiety #60 06/18/23 tabs mirtazapine 15 mg tablet 15 mg PO BEDTIME #30 tabs 06/22/23 docusate sodium 100 mg capsule 100 mg PO DAILY #30 caps 07/07/23 (Colace) morphine 15 mg immediate release 15 mg PO Q4-6H PRN pain #10 tabs 08/06/23 tablet ondansetron 4 mg disintegrating 4 mg PO Q6-8H PRN nausea and 08/06/23 tablet vomiting #14 tabs tamsulosin 0.4 mg capsule (Flomax) 0.4 mg PO DAILY #30 caps 08/06/23 Allergies Allergy/AdvReac Type Severity Reaction Status Date / Time moxifloxacin Allergy Vomiting Verified 07/27/23 10:17 Review of Systems Review of Systems Yes all other systems are reviewed and are negative [facility] Past Medical History [facility] Narrative: Past medical history: Opiate use disorder, UR tract infection, kidney stone. Past surgical history: None. Social history: She does smoke cigarettes. She denies alcohol use. She smokes marijuana. She denies The drug use. Medical History Nephrolithiasis Social History Social History Alcohol intake: never Patient Tobacco Use Status: Never used Tobacco Substance Use Type: Marijuana Advance Directives: No Advance Directives Information Provided: Yes service: No Current occupational status: employed Physical Exam ED Vital Signs: Vital Signs - 24 hr 08/06/23 04:47 08/06/23 08:17 Temperature 98.0 F 97.7 F Pulse Rate 45 L 42 L Respiratory Rate 16 16 Blood Pressure 163/99 H 144/80 H Pulse Oximetry 99 99 Oxygen Delivery Method Room Air Room Air BMI result Body Mass Index 27.5 vital signs revealed elevated blood pressure of 163/99-this most likely caused by her flank pain exam: General: Awake, alert in no distress Head: Normocephalic, atraumatic EENT: PERRL, Lids normal, sclera normal, conjunctiva normal, nose normal , ears normal, throat without erythema or exudates Neck: Supple, no adenopathy, trachea midline and nontender Lung: breath sounds symmetric, no wheezing, rales or rhonchi Chest: symmetric movement, nontender Heart: regular rate and rhythm, normal S1, S2 no murmurs or rubs Abdomen: soft, Mild left lower quadrant tender, nondistended, normal bowel sounds Back: no vertebral tenderness, mild left CVAT Extremities: no deformities, moves all extremities symmetrically Skin: no rashes, no lesion, normal color and warmth Neuro: Awake, alert, oriented, normal speech, cranial nerves intact, moves all extremities symmetrically Psych: Pleasant, cooperative Medical Decision Making Medical Decision Making [facility] Narrative: 33-year-old female with history of opiate use disorder, urinary tract infection and kidney stone who presents to emergency department for evaluation of sudden onset of left lower quadrant pain that began prior to coming to emergency department, the pain associated with nausea and vomiting. The pain was 6/10 at its worst. The pain feels similar to her kidney stone pain that she has had in the past. Signs did reveal an elevated blood pressure otherwise was unremarkable. The patient did have mild left lower quadrant tenderness mild left CVA tenderness. The following Evaluation was ordered: CBC, CMP, quantitative beta-hCG,urinalysis, lipase, C CT scan abdomen pelvis without IV contrast 1018 : Patient's laboratory evaluation did reveal blood in her urine otherwise was unremarkable. CT scan of the abdomen pelvis without IV contrast did reveal a 4 mm left ureteral stone at the UVJ with hydronephrosis , this finding explains the patient's pain. The patient did get improvement of her pain with Toradol 15 mg IV and Zofran 4 mg IV. She continued to have nausea required a dose of Phenergan 12.5 mg IV. She also given normal saline x1 L. The patient states that her pain is significant improvement his 2/10. The patient was advised take Tylenol and ibuprofen for pain. For pain not relieved by these medications she was prescribed morphine. I and aware that the patient is on Suboxone and does have a history of opiate use disorder, the patient the this prescription medication will not compromise for sobriety and she states that she will give the medication to her apparent and only take medication as needed for severe pain Differential Diagnosis Differential Diagnoses: The differential diagnosis associated with the presentation includes differential diagnosis includes was not limited to renal colic, ureteral colic, renal stone, ureteral stone, urinary tract infection, diverticulitis, pancreatitis, electrolyte abnormality, anemia Lab Data MDM Lab Attestation statement: I reviewed the patient's lab results. patient's laboratory evaluation [place] [id number], urinalysis did reveal 2+ palpable greater than 20 RBCs, is sees 2+ bacteria, 11-20 squamous cells -this is a non clean catch specimen. Quantitative beta-hCG was negative. 08/06/23 04:49 08/06/23 04:49 Labs: Lab Results 08/06/23 08/06/23 Range/Units 04:49 04:54 WBC 11.3 H (4.8-10.8) X10*3/uL RBC 4.21 (4.20-5.50) X10*6/uL Hgb 12.6 (12.0-16.0) g/dl Hct 37.9 (37.0-47.0) % MCV 90.0 (80.0-98.0) fL MCH 29.9 (27.0-33.0) pg MCHC 33.2 (31.0-35.0) g/dl RDW 12.8 (11.0-16.0) % Plt Count 266 (160-400) X10*3/uL MPV 10.2 (9.4-12.3) fL Absolute Nucleated RBC 0.000 (0.0-0.012) X10*3/uL Nucleated RBC % (auto) 0.0 (0.0-0.2) /100WBC Sodium 140 (135-145) mmol/L Potassium 3.7 (3.3-5.1) mmol/L Chloride 109 H (96-108) mmol/L Carbon Dioxide 22 (22-29) mmol/L Anion Gap 13 (12-20) BUN 15 (9-16) mg/dL Creatinine 0.78 (0.5-1.4) mg/dL Estim Creat Clear Calc 103.8 Estimated GFR > 60 Random Glucose 145 H (60-115) mg/dL Calcium 9.0 D (8.4-10.2) mg/dL Total Bilirubin 0.6 (0.0-1.0) mg/dL AST 27 (5-31) U/L ALT 20 (0-31) U/L Alkaline Phosphatase 78 (39-117) U/L Total Protein 6.8 (6.5-8.0) g/dL Albumin 4.1 (3.5-5.0) g/dL Lipase 14 (8-78) U/L Beta HCG, Quant < 2 mIU/mL Urine Color Yellow Urine Appearance Cloudy Urine pH 5.5 (5.0-9.0) Ur Specific [place] >= 1.030 H (1.005-1.025) Urine Protein 30 (1+) H (Neg-Trace) mg/dL Urine Glucose (UA) Negative (Negative) mg/dL Urine Ketones Negative (Negative) mg/dL Urine Blood Large (3+) H (Negative) Urine Nitrite Negative (Negative) Ur Leukocyte Esterase Negative (Negative) Urine RBC >20 H (0-2) /HPF Urine WBC 0-5 (0-5) /HPF Ur Squamous Epith Cells 11-20 (0-2) /HPF Urine Bacteria 2+ (None Seen) Hyaline Casts 0-2 (0-2) /LPF Independent Interpretation I performed an independent interpretation of an: CT Scan Interpretation: CT abdomen pelvis wo IV con IMPRESSION: * Mild left hydronephrosis is caused by a 0.2 x 0.4 cm stone of the distal left ureter near the ureterovesical junction. * Mild periportal edema is suspected. Also, there is a small amount of free fluid in the right upper quadrant anterosuperior to liver. Findings could be secondary to hypervolemia. Dictated By: Reymundo Lin MD Medications Administered Discontinued Medications Generic Name Dose Route Start Last Admin Trade Name Freq PRN Reason Stop Dose Admin Sodium Chloride 1,000 mls @ 999 mls/hr 08/06/23 07:38 08/06/23 08:14 Ns IV 08/06/23 08:38 Infused .Q1H1M STA Infusion Ketorolac Tromethamine 15 mg 08/06/23 07:38 08/06/23 07:42 Ketorolac Tromethamine 15 Mg/Ml Vial IVPUSH 08/06/23 07:39 15 mg ONCE STA Administration Ondansetron HCl 4 mg 08/06/23 07:28 08/06/23 07:29 Ondansetron Hcl 4 Mg/2 Ml Vial IVPUSH 08/06/23 07:29 4 mg ONCE ONE Administration Discharge Plan Discharge Clinical Impression: Calculus of distal left ureter, Colic, ureteral Nausea & vomiting Qualifiers: Vomiting type: unspecified Qualified Code(s): R11.2 - Nausea with vomiting, unspecified Patient Disposition: Home, Self-Care Instructions: How to Strain Your Urine (ED), Ureteral Stones (ED) Additional Instructions: Your blood work was normal. Your urine was positive for blood, this is consistent with a kidney stone, there was no evidence for infection in urine at this time. The CT scan of your abdomen pelvis without IV contrast did reveal a 4 mm ureteral stone at the area where the ureter connects to the bladder (the UVJ junction). Take ibuprofen 200 mg pills, 3 pills every 6 hours as needed for pain. Take Tylenol (acetaminophen) 2 pills every 4-6 hours as needed for pain. For pain not relieved by ibuprofen or Tylenol take morphine 15 mg pills, 1 pill every 4 hours as needed for pain. This medication will make you sleepy, do not drive or work while taking this medication. Morphine is a narcotic medication and can be addicting. If you are concerned about addiction you can ask the pharmacist for less pills or do not get this prescription filled. Take Zofran (ondansetron) 4 mg oral dissolvable tablets, 1 tablet dissolved in mouth every 6-8 hours as needed Take Flomax (tamsulosin) 0.4 mg once a day for the next 2 weeks or until you pass the stone. This medication helps relax the ureter and may help you pass the stone sooner. Strain your urine and if you catch the stone bring it to Dr. Pruett. Transfer tech Follow-up with Dr. Pruett, our urology in 4-7 days. Please return to the emergency department if your symptoms get worse or if you develop any symptoms that are concerning to you. Prescriptions: New tamsulosin [Flomax] 0.4 mg capsule 0.4 mg PO DAILY Qty: 30 0RF morphine 15 mg tablet 15 mg PO Q4-6H PRN (Reason: pain) Qty: 10 0RF Rx Instructions: The patient may ask for partial fill; Partial Fill upon patient request. ondansetron 4 mg tablet,disintegrating 4 mg PO Q6-8H PRN (Reason: nausea and vomiting) Qty: 14 0RF No Action sennosides [senna] 8.6 mg tablet 8.6 mg PO DAILY PRN (Reason: for constipation) Qty: 30 2RF buprenorphine-naloxone [Suboxone] 8-2 mg film 1 film sublingual DAILY Qty: 7 0RF Sublocade 100 mg/0.5 mL solution, extended rel syringe 100 mg subcut ONCE Qty: 0.5 5RF Rx Instructions: once every 28 days hydroxyzine HCl 50 mg tablet 50 mg PO TID PRN (Reason: for anxiety) Qty: 60 0RF docusate sodium [Colace] 100 mg capsule 100 mg PO DAILY Qty: 30 0RF naloxone [Narcan] 4 mg/actuation spray,non-aerosol 4 mg intranasal Q2M PRN (Reason: opioid overdose) Qty: 2 0RF Rx Instructions: spray 1 dose into ONE nostril; alternate nostrils w each dose until help arrives mirtazapine 15 mg tablet 15 mg PO BEDTIME Qty: 30 3RF
[2023-08-06] MEDS: Tamsulosin HCL 0.4 MG CAPSULE PO (10:33)
[2023-08-06] MEDS: Morphine Sulfate 4 MG/ML CARTRIDGE IVPUSH (11:11)
--- NOTE | 2023-08-06 11:26 | PC.NURSE ---
patient sitting up in bed, given saltines and apple juice. patient has been taking small sips of apple juice with no vomiting.
[2023-08-06 11:34] VITALS: BP 144/82; PULSE 40; RESP 16; TEMP 36.8; O2SAT 98
== END 2023-08-06 12:08 | disposition home or self-care (01) ==
PROVIDERS: Emergency Provider Emergency Medicine Emergency Medical Services
DX: N20.1 Calculus of ureter (principal); R10.32 Left lower quadrant pain; R11.2 Nausea with vomiting, unspecified; Z79.899 Other long term (current) drug therapy
CPT/HCPCS: 36415; 74176; 80053; 81001; 83690; 84702; 85027; 96361; 96365; 96375; 99284; J1885; J2270; J2405; J2550

== ENCOUNTER 2023-08-24 10:00 | Outpatient (AMB) | payer OTHER, SELFPAY ==
[2023-08-24 10:17] VITALS: BP 124/70; PULSE 64; O2SAT 99
--- NOTE | 2023-08-24 10:17 | MHC.OFFVIS ---
Intake Vital Signs 08/24/23 10:17 BP 124/70 Blood Pressure Location Lt radial Position Sitting Pulse 64 Pulse Source Pulse Oximeter Pulse Oximetry (%) 99 Oxygen Delivery Method Room Air Intake Visit Reasons: mat visit Intake Note: the patient presents for a sub inj Form Raiser Required: No Allergies moxifloxacin Allergy (Verified 08/24/23 10:18) Vomiting Do you need a note to return to daycare/school/sports/work: No HPI mat visit HPI Details Patient presents for follow up and Sublocade injection Doing well with recovery Expressing frustration about therapy and what she reports is inconsistency with therapist [facility] Medical History Nephrolithiasis Social History Alcohol intake: never Patient Tobacco Use Status: Never used Tobacco Substance Use Type: Marijuana service: No Current occupational status: employed Review of Systems Const Reports as per HPI and Reports no additional complaints Physical Exam Vital Signs: Last Vital Signs Pulse 64 08/24/23 10:17 BP 124/70 08/24/23 10:17 Pulse Ox 99 08/24/23 10:17 Oxygen Delivery Method Room Air 08/24/23 10:17 Const General: cooperative and healthy appearing Skin General skin exam: no rashes or lesions noted Psych Appearance: well kempt Speech and movement: Clear speech present Affect: Anxious affect present Attitude: cooperative Thought process: Normal thought process present Thought content: Normal thought content present Insight: Good insight present (Psych) Judgement: Good judgement present (Psych) Office Meds Sublocade 100 mg/0.5 mL solution,extended release subcutaneous syringe Performing Provider: Yuni Mendez CNP Performing Location: [facility] Administered by: Nichole Molina NP on 08/24/23 10:53 Dose Route Admin Location Dispensed Lot Number Expiration Date [facility] Medical Management Specialist 100 mg subcut RLQ 0.5 mL [id number] 08/14/24 [address]-8 [employer]. Comments: Pt tolerated injection well, denies concerns about previous injection. Educated on signs and symptoms of infection, encouraged to call [facility] with any questions or concerns. Results AMB 14 Panel Urine Drug Screen Urine Marijuana (THC) Positive Last Edit by Karen Jacome CMA on 08/24/23 10:19 Urine Cocaine Negative Last Edit by Karen Jacome CMA on 08/24/23 10:19 Urine Morphine Negative Last Edit by Karen Jacome CMA on 08/24/23 10:19 Urine Methamphetamine Negative Last Edit by Karen Jacome CMA on 08/24/23 10:19 Urine Amphetamine Negative Last Edit by Karen Jacome CMA on 08/24/23 10:19 Urine Benzodiazepine Negative Last Edit by Karen Jacome CMA on 08/24/23 10:19 Urine Barbiturates Negative Last Edit by Karen Jacome CMA on 08/24/23 10:19 Urine Methadone Negative Last Edit by Karen Jacome CMA on 08/24/23 10:19 Urine Buprenorphine Positive Last Edit by Karen Jacome CMA on 08/24/23 10:19 Urine Tricyclic Antidepressant Negative Last Edit by Karen Jacome CMA on 08/24/23 10:19 Urine MDMA Negative Last Edit by Karen Jacome CMA on 08/24/23 10:19 Urine Oxycodone Negative Last Edit by Karen Jacome CMA on 08/24/23 10:19 Urine Phencyclidine Negative Last Edit by Karen Jacome CMA on 08/24/23 10:19 Urine Propoxyphene Negative Last Edit by Karen Jacome CMA on 08/24/23 10:19 AMB Test Urine AMB Test Urine Negative Last Edit by Karen Jacome CMA on 08/24/23 10:20 Results Reviewed Results Reviewed: Laboratory Last Values [facility]st Clinic Negative 08/24/23 10:18 POC Urine Buprenorphine Positive 08/24/23 10:18 POC Urine Morphine Negative 08/24/23 10:18 POC Urine Oxycodone Negative 08/24/23 10:18 POC Urine Methadone Negative 08/24/23 10:18 POC Urine Propoxyphene Negative 08/24/23 10:18 POC Urine Barbiturates Negative 08/24/23 10:18 POC U Tricyclic Antidpr Negative 08/24/23 10:18 POC Urine PCP Negative 08/24/23 10:18 POC Ur Amphetamines Negative 08/24/23 10:18 POC Ur Methamphetamine Negative 08/24/23 10:18 POC Urine MDMA Negative 08/24/23 10:18 POC Ur Benzodiazepine Negative 08/24/23 10:18 POC Urine Cocaine Negative 08/24/23 10:18 POC Ur Marijuana (THC) Positive 08/24/23 10:18 Assessment & Plan Assessment & Plan (1) Opioid use disorder: Code(s): F11.90 - Opioid use, unspecified, uncomplicated Plan: Tolerated injection follow up 4 weeks Orders: Orders AMB Buprenorphine Injection - Patient Supplied Today F11.90 - Opioid use, unspecified, uncomplicated AMB 14 Panel Urine Drug Screen Today Z51.81 - Encounter for therapeutic drug level monitoring AMB HCG Urine Test Today Z32.01 - Encounter for test, result positive, Z32.02 - Encounter for test, result negative Coding Level of Care Code Est Pt Level 3 (05386) Diagnoses Opioid use disorder F11.90
== END 2023-08-24 11:14 | disposition home or self-care (01) ==
PROVIDERS: PCP Internal Medicine; Visit Provider Nurse Practitioner Psychiatric/Mental Health
DX: Z32.02 Encounter for pregnancy test, result negative (principal); Z32.01 Encounter for pregnancy test, result positive; F11.90 Opioid use, unspecified, uncomplicated; Z51.81 Encounter for therapeutic drug level monitoring
CPT/HCPCS: 99213

== ENCOUNTER → 2023-08-24 10:00 | Outpatient (BNVA) | payer OTHER, SELFPAY | PROVIDERS: PCP Internal Medicine; Visit Provider Nurse Practitioner Psychiatric/Mental Health | DX: F11.20 Opioid dependence, uncomplicated (principal) | CPT/HCPCS: 80305; 81025; 96372; Q9992 ==

== ENCOUNTER 2023-09-28 09:08 | Outpatient (AMB) | payer OTHER, SELFPAY ==
[2023-09-28 09:28] VITALS: BP 126/70; PULSE 75; O2SAT 98
--- NOTE | 2023-09-28 09:28 | MHC.OFFVIS ---
Intake Vital Signs 09/28/23 09:28 BP 126/70 Blood Pressure Location Lt radial Position Sitting Pulse 75 Pulse Source Pulse Oximeter Pulse Oximetry (%) 98 Oxygen Delivery Method Room Air Intake Visit Reasons: mat visit Intake Note: the patient presents for a sub [facility] Hyperbaric Technician Required: No Allergies moxifloxacin Allergy (Verified 09/28/23 09:29) Vomiting Do you need a note to return to daycare/school/sports/work: No HPI mat visit HPI Details Pt presents for ILDEFONSO treatment and follow up. Denies any concerns related to recovery at this time. No concerns related injeciton, denies side effects or break through withdrawals. Went on a cruise last week with her to have a belated honeymoon and to celebrate a birthday. [facility] Medical History Nephrolithiasis Social History Alcohol intake: never Patient Tobacco Use Status: Never used Tobacco Substance Use Type: Marijuana service: No Current occupational status: employed Review of Systems Const Reports as per HPI Physical Exam Vital Signs: Last Vital Signs Pulse 75 09/28/23 09:28 BP 126/70 09/28/23 09:28 Pulse Ox 98 09/28/23 09:28 Oxygen Delivery Method Room Air 09/28/23 09:28 Const General: cooperative, healthy appearing and comfortable Resp Effort & Inspection: normal respiratory effort Skin General skin exam: no rashes or lesions noted Psych Appearance: grossly normal Mental Status: mental status grossly normal Speech and movement: Normal speech and movement present and Clear speech present Affect: normal affect Attitude: cooperative Office Meds Sublocade 100 mg/0.5 mL solution,extended release subcutaneous syringe Performing Provider: Yuni Mendez CNP Performing Location: [facility] Administered by: Gabriella Maki RN on 09/28/23 10:26 Dose Route Admin Location Dispensed Lot Number Expiration Date [facility] Gore Cutter 100 mg subcut LLQ 0.5 mL [id number] 10/14/24 [address]-1 [employer] Comments: Pt tolerated injection well, denies concerns about previous injection. Educated on signs and symptoms of infection, encouraged to call [facility] with any questions or concerns, pt verbalized understanding. Results AMB Test Urine AMB Test Urine Negative Last Edit by Karen Jacome CMA on 09/28/23 09:30 Results Reviewed Results Reviewed: Laboratory Last Values [facility] Clinic Negative 09/28/23 09:29 Assessment & Plan Assessment & Plan (1) Opioid use disorder: Code(s): F11.90 - Opioid use, unspecified, uncomplicated Plan: Tolerated injection well. Follow up in 4 weeks. assessmnet and plan reviewed with BEN Molina Orders: Orders AMB HCG Urine Test 09/28/23 Z32.01 - Encounter for test, result positive, Z32.02 - Encounter for test, result negative AMB Buprenorphine Injection - Patient Supplied 09/28/23 F11.90 - Opioid use, unspecified, uncomplicated Coding Level of Care Code Est Pt Level 3 (21861) Diagnoses Opioid use disorder F11.90
== END 2023-09-28 09:54 | disposition home or self-care (01) ==
PROVIDERS: PCP Internal Medicine; Visit Provider Nurse Practitioner Psychiatric/Mental Health
DX: F11.90 Opioid use, unspecified, uncomplicated (principal)
CPT/HCPCS: 99213

== ENCOUNTER → 2023-09-28 09:08 | Outpatient (BNVA) | payer OTHER, SELFPAY | PROVIDERS: PCP Internal Medicine; Visit Provider Nurse Practitioner Psychiatric/Mental Health | DX: F11.20 Opioid dependence, uncomplicated (principal); Z32.02 Encounter for pregnancy test, result negative; Z51.81 Encounter for therapeutic drug level monitoring; Z79.899 Other long term (current) drug therapy | CPT/HCPCS: 81025; 96372; Q9992 ==

== ENCOUNTER 2023-10-26 09:01 | Outpatient (AMB) | payer OTHER, SELFPAY ==
--- NOTE | 2023-10-26 09:03 | AM.OFFVISNUR ---
Intake Vital Signs 10/26/23 09:15 BP 116/70 Blood Pressure Location Lt radial Position Sitting Pulse 80 Pulse Source Pulse Oximeter Pulse Oximetry (%) 98 Oxygen Delivery Method Room Air Intake Visit Reasons: Sub Inj Intake Note: the patient presents for a sub inj Environmental Health Nurse Required: No Allergies moxifloxacin Allergy (Verified 10/26/23 09:10) Vomiting Do you need a note to return to daycare/school/sports/work: No Nursing Note Pt. presents for OUD F/U and sublocade injection.? Pt A&O x 4 pleasant and cooperative with care.?She shares her supports now which are family and friends.? T/W educated pt available fellowships and supports that do not involve 12 steps and/or are more age appropriate.? Pt. reports her recovery is going well.? Pt reports some local SE of itching immediately following the injection that discepates after a few days and is R/B ice packs. ? Pt. denies any other SE from sublocade injection, systemic or local.? Pt also receives therapy as a support. Pt. is motivated for recovery and is actively participating in her treatment.? T/W administered sublocade injection as per provider orders.? Pt. will F/U in clinic in four weeks for check in and injection. Office Meds Sublocade 100 mg/0.5 mL solution,extended release subcutaneous syringe Performing Provider: Yuni Mendez CNP Performing Location: [facility] Administered by: Syl Vogel RN on 10/26/23 09:15 Dose Route Admin Location Dispensed Lot Number Expiration Date [facility] Finance Attorney 100 mg subcut RLQ 0.5 mL [id number] 12/16/24 [address]-5 [employer]. Comments: Pt tolerated injection well. Denies SE local or systemic, cravings/urges, breakthrough. Encouraged to call office with issues prior to next F/U Results AMB Test Urine AMB Test Urine Negative Last Edit by Karen Jacome CMA on 10/26/23 09:15 Coding Assessment & Plan Assessment & Plan Orders: Orders AMB HCG Urine Test Today Z32.01 - Encounter for test, result positive, Z32.02 - Encounter for test, result negative, Z79.899 - Other ferry terminal supervisor (current) drug therapy AMB Buprenorphine Injection - Patient Supplied Today F11.90 - Opioid use, unspecified, uncomplicated
[2023-10-26 09:15] VITALS: BP 116/70; PULSE 80; O2SAT 98
== END 2023-10-26 09:44 | disposition home or self-care (01) ==
PROVIDERS: PCP Internal Medicine
DX: Z32.02 Encounter for pregnancy test, result negative (principal); Z32.01 Encounter for pregnancy test, result positive; Z79.899 Other long term (current) drug therapy; F11.90 Opioid use, unspecified, uncomplicated

== ENCOUNTER → 2023-10-26 09:01 | Outpatient (BNVA) | payer OTHER, SELFPAY | PROVIDERS: PCP Internal Medicine | DX: F11.20 Opioid dependence, uncomplicated (principal) | CPT/HCPCS: 81025; 96372; Q9992 ==

== ENCOUNTER 2023-11-25 08:51 | Outpatient (AMB) | payer OTHER, SELFPAY ==
--- NOTE | 2023-11-25 08:57 | A.OFFVISCC_ITS ---
Intake Vital Signs 11/25/23 09:05 BP 134/86 Blood Pressure Location Lt radial Position Sitting Pulse 78 Pulse Source Pulse Oximeter Pulse Oximetry (%) 98 Oxygen Delivery Method Room Air Intake Visit Reasons: Sub Inj Intake Note: The patient presents for a sub inj Supervisor Bridges [employer] Buildings Required: No Allergies moxifloxacin Allergy (Verified 11/25/23 08:57) Vomiting Do you need a note to return to daycare/school/sports/work: No HPI Sub Inj HPI Details Patient presents for follow up and sublocade injection Reprots she is doing well with recovery, however increasing stress at home with her patient tearful during visit has not connected with a therapist--would like to resume this stopped mirtazipine PFSH Medical History Nephrolithiasis Social History Alcohol intake: never Comment: PT LEFT AMA. Patient Tobacco Use Status: Never used Tobacco Substance Use Type: Marijuana service: No Current occupational status: employed Review of Systems Const Reports as per HPI and Reports difficulty sleeping Psych Reports depression Physical Exam Vital Signs: Last Vital Signs Pulse 78 11/25/23 09:05 BP 134/86 11/25/23 09:05 Pulse Ox 98 11/25/23 09:05 Oxygen Delivery Method Room Air 11/25/23 09:05 Office Meds Sublocade 100 mg/0.5 mL solution,extended release subcutaneous syringe Performing Provider: Yuni Mendez CNP Performing Location: [facility] [place] Administered by: Charley Armas RN on 11/25/23 09:24 Dose Route Admin Location Dispensed Lot Number Expiration Date [facility] Manager Adult 100 mg subcut RLQ 0.5 mL [id number] 12/16/24 [address]-3 [employer] Comments: Pt tolerated injection well, denies concerns about previous injection. Educated on signs and symptoms of infection, encouraged to call [facility] with any questions or concerns, pt verbalized understanding. Results AMB Test Urine AMB Test Urine Negative Last Edit by Karen Jacome CMA on 09:07 Results Reviewed Results Reviewed: Laboratory Last Values [facility]st Clinic Negative 11/25/23 08:58 Assessment & Plan Assessment & Plan (1) Opioid use disorder: Code(s): F11.90 - Opioid use, unspecified, uncomplicated Plan: Tolerated injection well. Follow up in 4 weeks. referral to be sent to [facility] RN to follow up in 2 weeks (refer) Orders: Orders AMB Buprenorphine Injection - Patient Supplied Today F11.90 - Opioid use, unspecified, uncomplicated AMB HCG Urine Test Today Z32.01 - Encounter for test, result positive, Z32.02 - Encounter for test, result negative Coding Level of Care Code Est Pt Level 4 (46624) Diagnoses Opioid use disorder F11.90
[2023-11-25 09:05] VITALS: BP 134/86; PULSE 78; O2SAT 98
== END 2023-11-25 09:32 | disposition home or self-care (01) ==
PROVIDERS: PCP Internal Medicine; Visit Provider Nurse Practitioner Psychiatric/Mental Health
DX: Z32.02 Encounter for pregnancy test, result negative (principal); Z32.01 Encounter for pregnancy test, result positive; F11.90 Opioid use, unspecified, uncomplicated
CPT/HCPCS: 99214

== ENCOUNTER → 2023-11-25 08:51 | Outpatient (BNVA) | payer OTHER, SELFPAY | PROVIDERS: PCP Internal Medicine; Visit Provider Nurse Practitioner Psychiatric/Mental Health | DX: F11.20 Opioid dependence, uncomplicated (principal) | CPT/HCPCS: 81025; 96372; Q9992 ==

== ENCOUNTER 2023-12-23 14:36 | Outpatient (AMB) | payer OTHER, SELFPAY ==
--- NOTE | 2023-12-23 14:41 | AM.OFFVISNUR ---
Intake Vital Signs 12/23/23 14:47 BP 114/78 Blood Pressure Location Lt radial Position Sitting Pulse 54 Pulse Source Pulse Oximeter Pulse Oximetry (%) 98 Oxygen Delivery Method Room Air Intake Visit Reasons: Sub Inj Intake Note: the patient presents for a sub inj Hr Associate Required: No Allergies moxifloxacin Allergy (Verified 12/23/23 14:47) Vomiting Do you need a note to return to daycare/school/sports/work: No Nursing Note Patient present for 4 week OUD follow up and Sublocade injection. Pt is alert, oriented, pleasant and cooperative. Pt reports no issues with previous injections. Pt reports that sleep recently has been broken due to family stress. Pt shared that she just completed an intake with [facility] and will follow them for counseling services. Pt reports no cravings or medication changes. Patient reminded to call office if there is any way that we can assist and will follow up in 4 weeks. Office Meds Sublocade 100 mg/0.5 mL solution,extended release subcutaneous syringe Performing Provider: Nichole Molina NP Performing Location: [facility] Administered by: Gabriella Maki RN on 12/23/23 15:26 Dose Route Admin Location Dispensed Lot Number Expiration Date [facility] Air Liaison And Special Staff 100 mg subcut LLQ 0.5 mL [id number] 01/12/25 [address]-0 [employer]. Comments: Pt tolerated injection well, denies concerns about previous injection. Educated on signs and symptoms of infection, encouraged to call [facility] with any questions or concerns, pt verbalized understanding. Results AMB Test Urine AMB Test Urine Negative Last Edit by Karen Jacome CMA on 12/23/23 14:49 Coding Assessment & Plan Assessment & Plan Orders: Orders AMB Buprenorphine Injection - Patient Supplied Today F11.21 - Opioid dependence, in remission Nichole Molina NP AMB HCG Urine Test Today Z32.01 - Encounter for test, result positive, Z32.02 - Encounter for test, result negative Yuni Mendez, SHALE PLANER OPERATOR HELPER
[2023-12-23 14:47] VITALS: BP 114/78; PULSE 54; O2SAT 98
== END 2023-12-23 15:13 | disposition home or self-care (01) ==
PROVIDERS: PCP Internal Medicine
DX: Z32.02 Encounter for pregnancy test, result negative (principal); Z32.01 Encounter for pregnancy test, result positive; F11.21 Opioid dependence, in remission

== ENCOUNTER → 2023-12-23 14:36 | Outpatient (BNVA) | payer OTHER, SELFPAY | PROVIDERS: PCP Internal Medicine | DX: F11.20 Opioid dependence, uncomplicated (principal) | CPT/HCPCS: 81025; 96372; Q9992 ==

== ENCOUNTER 2023-12-28 09:03 | Outpatient (AMB) | payer OTHER, SELFPAY ==
--- NOTE | 2023-12-28 09:04 | A.OFFVISCC_ITS ---
Intake Intake Visit Reasons: mat Allergies moxifloxacin Allergy (Verified 12/23/23 14:47) Vomiting HPI mat HPI Details Patient presents for OUD treatment follow up Called on Wednesday to request Mirtazipine be restarted decreased appetite, low stress tolerance. Has started medication and has therapy appt scheduled Discussed anxiety sx., did not care for hydroxyzine as it made her sleepy. Agreeable to clonidine trial --advised to take 1/2 tab PFSH Medical History (Updated 01/04/24 @ 15:42 by Yuni Mendez CNP) Opioid use disorder Nephrolithiasis Social History Alcohol intake: never Comment: PT LEFT AMA. Patient Tobacco Use Status: Never used Tobacco Substance Use Type: Marijuana service: No Current occupational status: employed Review of Systems Const Reports as per HPI Assessment & Plan Assessment & Plan (1) Major depress dis, severe: Code(s): F32.2 - Major depressive disorder, single episode, severe without psychotic features Plan: * continue mirtazipine * clonidine 0.1mg 1/2 tab prn for anxiety Medications: New clonidine HCl 0.05 mg (1/2 x 0.1 mg) PO BID PRN 10 tabs 0RF anxiety Discontinued tamsulosin Discontinued Reason: Patient Completed Course 0.4 mg PO DAILY 30 caps 0RF morphine The patient may ask for partial fill; Partial Fill upon patient request. Discontinued Reason: Patient Completed Course 15 mg PO Q4-6H PRN 10 tabs 0RF pain hydroxyzine HCl Discontinued Reason: Patient no longer taking 50 mg PO TID PRN 60 tabs 2RF for anxiety Telehealth Telehealth Location of provider rendering services: practice address Location of patient: address on file Patient Identification confirmed using: Name, : Yes Telehealth method: voice only Patient verbally consented to treatment: Yes Patient verbally consented to billing insurance company: Yes Coding Level of Care Code Tele Est Pt Level 4 (96825) Diagnoses Major depress dis, severe F32.2 Time Spent (min) 30 Comment 20 mins with patient, remainder on chart review and documentation
== END 2023-12-28 09:50 | disposition home or self-care (01) ==
LOC: HO.HCC 09:03
PROVIDERS: PCP Internal Medicine; Visit Provider Nurse Practitioner Psychiatric/Mental Health
DX: F11.90 Opioid use, unspecified, uncomplicated (principal); F32.2 Major depressive disorder, single episode, severe without psychotic features
CPT/HCPCS: 99214

== ENCOUNTER → 2023-12-28 09:03 | Outpatient (BNVA) | payer OTHER, SELFPAY | PROVIDERS: PCP Internal Medicine; Visit Provider Nurse Practitioner Psychiatric/Mental Health ==

== ENCOUNTER 2024-01-07 15:38 | Outpatient (AMB) | payer OTHER, SELFPAY ==
[2024-01-07 15:46] VITALS: BP 120/70; PULSE 80; RESP 20; O2SAT 98
--- NOTE | 2024-01-07 15:46 | A.OFFVISCC_ITS ---
Intake Vital Signs 01/07/24 15:46 BP 120/70 Blood Pressure Location Rt brachial Position Sitting Respiration 20 Pulse 80 Pulse Source Pulse Oximeter Pulse Oximetry (%) 98 Oxygen Delivery Method Room Air Intake Visit Reasons: mat visit Allergies moxifloxacin Allergy (Verified 12/23/23 14:47) Vomiting HPI mat visit HPI Details Patient presents for follow up No issues related to recovery--tolerating injection and appreciated not having to take films daily Discussed depressive sx and any improvement since starting medications Finds clonidine helpful prior to going to work No issues with mirtazipine PFSH Medical History (Updated 01/04/24 @ 15:42 by Yuni Mendez CNP) Opioid use disorder Nephrolithiasis Social History Alcohol intake: never Comment: PT LEFT AMA. Patient Tobacco Use Status: Never used Tobacco Substance Use Type: Marijuana service: No Current occupational status: employed Review of Systems Const Reports as per HPI and Reports no additional complaints Physical Exam Vital Signs: Last Vital Signs Pulse 80 01/07/24 15:46 Resp 20 01/07/24 15:46 BP 120/70 01/07/24 15:46 Pulse Ox 98 01/07/24 15:46 Oxygen Delivery Method Room Air 01/07/24 15:46 Const General: cooperative, healthy appearing and comfortable Resp Effort & Inspection: normal respiratory effort Skin General skin exam: no rashes or lesions noted Psych Appearance: grossly normal Mental Status: mental status grossly normal Speech and movement: Normal speech and movement present and Clear speech present Affect: normal affect Attitude: cooperative Assessment & Plan Assessment & Plan (1) Major depress dis, severe: Code(s): F32.2 - Major depressive disorder, single episode, severe without psychotic features Plan: * mirtazipine increased * clonidine continued Medications: New mirtazapine 15 mg PO BEDTIME 30 tabs 0RF Refilled clonidine HCl 0.05 mg (1/2 x 0.1 mg) PO BID PRN 60 tabs 0RF anxiety Discontinued mirtazapine Discontinued Reason: Doctor's Order 7.5 mg PO BEDTIME 30 tabs 0RF Coding Level of Care Code Est Pt Level 4 (73196) Diagnoses Major depress dis, severe F32.2
== END 2024-01-07 16:37 | disposition home or self-care (01) ==
PROVIDERS: PCP Internal Medicine; Visit Provider Nurse Practitioner Psychiatric/Mental Health
DX: F12.10 Cannabis abuse, uncomplicated (principal); F32.2 Major depressive disorder, single episode, severe without psychotic features
CPT/HCPCS: 99214

== ENCOUNTER → 2024-01-07 15:38 | Outpatient (BNVA) | payer OTHER, SELFPAY | PROVIDERS: PCP Internal Medicine; Visit Provider Nurse Practitioner Psychiatric/Mental Health ==

== ENCOUNTER 2024-01-26 15:59 | Outpatient (AMB) | payer OTHER, SELFPAY ==
--- NOTE | 2024-01-26 16:01 | MHC.AM.SUB ---
Intake Intake Visit Reasons: MAT Visit/ sub inj Intake Note: the patient presents for a sub inj Air Purifier Servicer Required: No Allergies moxifloxacin Allergy (Verified 01/26/24 16:02) Vomiting Do you need a note to return to daycare/school/sports/work: No HPI MAT Visit/ sub inj HPI Details Patient presents for follow up and Sublocade injection She reports her mood is still unstable, although improving Has not had therapy in 2 weeks-- Discussed previou smedication trials Both sertraline and Wellbutrin were ineffective agreeable to fluoxetine trial [facility] Medical History (Updated 01/04/24 @ 15:42 by Yuni Mendez CNP) Opioid use disorder Nephrolithiasis Social History Alcohol intake: never Comment: PT LEFT AMA. Patient Tobacco Use Status: Never used Tobacco Substance Use Type: Marijuana service: No Current occupational status: employed Review of Systems Const Reports as per HPI Physical Exam Const General: cooperative, healthy appearing and comfortable Nutritional Appearance: average body habitus Orientation/consciousness: patient oriented x3 Limitations: no limitations Neuro General: patient oriented x3 Psych Appearance: well kempt Speech and movement: Normal speech and movement present Affect: normal affect Attitude: cooperative and Guarded attititude/behavior present Thought process: Normal thought process present Thought content: Normal thought content present Insight: Good insight present (Psych) Judgement: Good judgement present (Psych) Office Meds Sublocade 100 mg/0.5 mL solution,extended release subcutaneous syringe Performing Provider: Yuni Mendez CNP Performing Location: [facility] Administered by: Charley Armas RN on 01/26/24 16:26 Dose Route Admin Location Dispensed Lot Number Expiration Date [facility] Community Liaison 100 mg subcut RLQ 0.5 mL [id number] 07/16/24 [address]-3 [employer]. Comments: Patient tolerated injection well, no stated or noted complaints. Educated and agrees to call [facility] with any concerns or questions. Results AMB Test Urine AMB Test Urine Negative Last Edit by Karen Jacome CMA on 01/26/24 16:16 Results Reviewed Results Reviewed: Laboratory Last Values Tst Clinic Negative 01/26/24 16:14 Assessment & Plan Assessment & Plan (1) Opioid use disorder, moderate, in sustained remission, dependence: Code(s): F11.21 - Opioid dependence, in remission Plan: tolerated injection next one due 4 weeks (2) Major depress dis, severe: Code(s): F32.2 - Major depressive disorder, single episode, severe without psychotic features Plan: continue mirtazipine trial fluoxetine 10mg QD Orders: Orders AMB Buprenorphine Injection - Patient Supplied 01/26/24 F11.21 - Opioid dependence, in remission AMB HCG Urine Test 01/26/24 Z32.01 - Encounter for test, result positive, Z32.02 - Encounter for test, result negative Medications: New fluoxetine 10 mg PO DAILY 30 caps 0RF Refilled mirtazapine 15 mg PO BEDTIME 30 tabs 0RF clonidine HCl 0.05 mg (1/2 x 0.1 mg) PO BID PRN 60 tabs 0RF anxiety Coding Level of Care Code Est Pt Level 4 (41154) Diagnoses Opioid use disorder, moderate, in sustained remission, dependence F11.21 Major depress dis, severe F32.2
== END 2024-01-26 16:31 | disposition home or self-care (01) ==
PROVIDERS: PCP Internal Medicine; Visit Provider Nurse Practitioner Psychiatric/Mental Health
DX: F11.21 Opioid dependence, in remission (principal); F32.2 Major depressive disorder, single episode, severe without psychotic features
CPT/HCPCS: 99214

== ENCOUNTER → 2024-01-26 15:59 | Outpatient (BNVA) | payer OTHER, SELFPAY | PROVIDERS: PCP Internal Medicine; Visit Provider Nurse Practitioner Psychiatric/Mental Health | DX: F11.20 Opioid dependence, uncomplicated (principal); F32.2 Major depressive disorder, single episode, severe without psychotic features; Z79.899 Other long term (current) drug therapy | CPT/HCPCS: 81025; 96372; Q9992 ==

== ENCOUNTER 2024-02-29 09:01 | Outpatient (AMB) | payer OTHER, SELFPAY ==
--- NOTE | 2024-02-29 09:00 | MHC.OFFVIS ---
Intake Intake Visit Reasons: Sub inj Allergies moxifloxacin Allergy (Verified 02/29/24 09:01) Vomiting PFSH Medical History Opioid use disorder Nephrolithiasis Social History Alcohol intake: never Comment: PT LEFT AMA. 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
[2024-02-29 09:05] VITALS: BP 144/82; PULSE 61; O2SAT 99
--- NOTE | 2024-02-29 09:09 | AM.OFFVISNUR ---
Intake Vital Signs 02/29/24 09:05 BP 144/82 H Blood Pressure Location Lt brachial Position Sitting Pulse 61 Pulse Source Pulse Oximeter Pulse Oximetry (%) 99 Oxygen Delivery Method Room Air Intake Visit Reasons: Sub inj Allergies moxifloxacin Allergy (Verified 02/29/24 09:01) Vomiting Nursing Note Patient in for injection today, in good spirits, smiling, speaking in clear/full sentences. Alert and oriented x4. Pt denies any cravings, doing well with injection, will follow up in 4 weeks for follow up injection with nurse. She verbally understands to call [facility] with any concerns/questions. Office Meds Sublocade 100 mg/0.5 mL solution,extended release subcutaneous syringe Performing Provider: Yuni Mendez CNP Performing Location: [facility] Administered by: Charley Armas RN on 02/29/24 09:12 Dose Route Admin Location Dispensed Lot Number Expiration Date [facility] Field Appraiser 100 mg subcut LLQ 0.5 mL [id number] 01/13/25 [address]-7 [employer]. Results AMB Test Urine AMB Test Urine Negative Last Edit by Lynda German CMA on 02/29/24 09:10 Coding Assessment & Plan Assessment & Plan Orders: Orders AMB HCG Urine Test Today Z32.02 - Encounter for test, result negative AMB Buprenorphine Injection - Patient Supplied Today F11.21 - Opioid dependence, in remission Medications: New Sublocade ER (buprenorphine) 100 mg (0.5 mL) subcut ONCE 0.5 mL 0RF NS F11.21 - Opioid dependence, in remission
== END 2024-02-29 09:54 | disposition home or self-care (01) ==
PROVIDERS: PCP Internal Medicine
DX: Z32.02 Encounter for pregnancy test, result negative (principal); F11.21 Opioid dependence, in remission

== ENCOUNTER → 2024-02-29 09:01 | Outpatient (BNVA) | payer OTHER, SELFPAY | PROVIDERS: PCP Internal Medicine | DX: F11.21 Opioid dependence, in remission (principal) | CPT/HCPCS: 81025; 96372; Q9992 ==

== ENCOUNTER 2024-03-28 09:03 | Outpatient (AMB) | payer OTHER, SELFPAY ==
[2024-03-28 09:03] VITALS: BP 140/88; PULSE 93; O2SAT 99
--- NOTE | 2024-03-28 09:03 | AM.OFFVISNUR ---
Intake Vital Signs 03/28/24 09:03 BP 140/88 H Blood Pressure Location Lt brachial Position Sitting Pulse 93 Pulse Source Pulse Oximeter Pulse Oximetry (%) 99 Oxygen Delivery Method Room Air Intake Visit Reasons: Sub inj Allergies moxifloxacin Allergy (Verified 02/29/24 09:01) Vomiting Nursing Note Pt in for injection today. In good spirits, smiling, speaking in clear/full sentences. States recovery is going well, she is meeting with a new prescriber soon at [facility], and possibly have them prescribe her meds there. I let her know whatever she chooses we will work with. She will see Yuni CONTRERAS and myself in 4 weeks for MAT check in and injection. Office Meds Sublocade 100 mg/0.5 mL solution,extended release subcutaneous syringe Performing Provider: Yuni Mendez CNP Performing Location: [facility] Administered by: Charley Armas RN on 03/28/24 09:11 Dose Route Admin Location Dispensed Lot Number Expiration Date [facility] Program Architect 100 mg subcut RLQ 0.5 mL [id number] 01/13/25 [address]-9 [employer]. Coding Assessment & Plan Assessment & Plan Orders: Orders AMB Buprenorphine Injection - Patient Supplied Today F11.21 - Opioid dependence, in remission
== END 2024-03-28 09:28 | disposition home or self-care (01) ==
PROVIDERS: PCP Internal Medicine
DX: F11.21 Opioid dependence, in remission (principal)

== ENCOUNTER → 2024-03-28 09:03 | Outpatient (BNVA) | payer OTHER, SELFPAY | PROVIDERS: PCP Internal Medicine | DX: F11.20 Opioid dependence, uncomplicated (principal) | CPT/HCPCS: 96372; Q9992 ==

== ENCOUNTER 2024-04-25 09:00 | Outpatient (AMB) | payer OTHER, SELFPAY ==
--- NOTE | 2024-04-25 09:18 | A.OFFVISCC_ITS ---
Vital Signs 04/25/24 09:19 BP 140/90 H Blood Pressure Location Lt brachial Position Sitting Respiration 16 Pulse 63 Pulse Source Pulse Oximeter Pulse Oximetry (%) 98 Oxygen Delivery Method Room Air Intake Visit Reasons: MAT visit/ Sub inj Allergies moxifloxacin Allergy (Verified 02/29/24 09:01) Vomiting HPI HPI MAT visit/ Sub inj: Details: Patient seen in follow for MDD and OUD (in sustained remission). Reporting that mood is more stable and he is tolerating current regimen Therapy has been more consistent Tolerating injection. Reflecting on recovery process. Started treatment September of 2022. Appreciative of the freedom that she feels now [facility] Medical History Opioid use disorder Nephrolithiasis Social History Alcohol intake: never Comment: PT LEFT AMA. Patient Tobacco Use Status: Never used Tobacco Substance Use Type: Marijuana service: No Current occupational status: employed Review of Systems Const Reports as per HPI and Reports no additional complaints Physical Exam Vital Signs: Last Vital Signs Pulse 63 04/25/24 09:19 Resp 16 04/25/24 09:19 BP 140/90 H 04/25/24 09:19 Pulse Ox 98 04/25/24 09:19 Oxygen Delivery Method Room Air 04/25/24 09:19 Const General: cooperative, healthy appearing, comfortable and well groomed Nutritional Appearance: average body habitus Orientation/consciousness: patient oriented x3 Limitations: no limitations Neuro General: patient oriented x3 Office Meds Sublocade 100 mg/0.5 mL solution,extended release subcutaneous syringe Performing Provider: Yuni Mendez CNP Performing Location: [facility] Administered by: Syl Vogel RN on 04/25/24 09:33 Dose Route Admin Location Dispensed Lot Number Expiration Date [facility] Home Insurance Agent 100 mg subcut LLQ 0.5 mL [id number] 01/13/25 [address]-4 [employer]. Comments: Pt. tolerated well. No S/S of infection from last injection and pt. denies injection site issues/SE. Pt educated re: calling office with any issues including increased redness, swelling, drainage or temp change at injection site. Pt to F/U in 4 weeks. Results AMB Test Urine AMB Test Urine Negative Last Edit by Syl Vogel RN on 04/25/24 09:46 Results Reviewed Results Reviewed: Laboratory Last Values [facility]st Clinic Negative 04/25/24 09:45 Assessment & Plan Assessment & Plan (1) Opioid use disorder, moderate, in sustained remission, dependence: Code(s): F11.21 - Opioid dependence, in remission Category: Medical Plan: * tolerated injection * next one due 4 weeks (2) Major depress dis, severe: Code(s): F32.2 - Major depressive disorder, single episode, severe without psychotic features Category: Medical Plan: * continue mirtazipine and fluoxetine Orders: Orders AMB Buprenorphine Injection - Patient Supplied Today F11.21 - Opioid dependence, in remission AMB HCG Urine Test Today F11.21 - Opioid dependence, in remission
[2024-04-25 09:19] VITALS: BP 140/90; PULSE 63; RESP 16; O2SAT 98
== END 2024-04-25 09:32 | disposition home or self-care (01) ==
PROVIDERS: PCP Internal Medicine
DX: F11.21 Opioid dependence, in remission (principal); F32.2 Major depressive disorder, single episode, severe without psychotic features
CPT/HCPCS: 99214

== ENCOUNTER → 2024-04-25 09:00 | Outpatient (BNVA) | payer OTHER, SELFPAY | PROVIDERS: PCP Internal Medicine | DX: F11.21 Opioid dependence, in remission (principal); F32.2 Major depressive disorder, single episode, severe without psychotic features | CPT/HCPCS: 81025; 96372; Q9992 ==

== ENCOUNTER 2024-05-23 09:32 | Outpatient (AMB) | payer OTHER, SELFPAY ==
--- NOTE | 2024-05-23 09:45 | AM.OFFVISNUR ---
Intake Visit Reasons: Sub inj Allergies moxifloxacin Allergy (Verified 02/29/24 09:01) Vomiting Nursing Note Pt. presents for sublocade injection.? Pt A&O x 4 pleasant and cooperative with care.? Pt. reports her recovery is going well.? ? Pt. denies any complications or side effects from sublocade injection, systemic or local.? Pt also receives therapy as a support. Pt. is motivated for recovery and is actively participating in her treatment.? I administered sublocade injection as per provider orders in the LLQ.? Pt. will been seen in clinic in four weeks for check in and injection. Office Meds Sublocade 100 mg/0.5 mL solution,extended release subcutaneous syringe Performing Provider: Yuni Mendez CNP Performing Location: [facility] Administered by: Charley Armas RN on 05/23/24 15:06 Dose Route Admin Location Dispensed Lot Number Expiration Date [facility] Marine Photographer 100 mg subcut LLQ 0.5 mL [id number] 01/13/25 [address]-1 [employer]. Assessment & Plan Assessment & Plan Orders: Orders AMB Buprenorphine Injection - Patient Supplied Today F11.21 - Opioid dependence, in remission Medications: New Sublocade ER (buprenorphine) 100 mg (0.5 mL) subcut ONCE 0.5 mL 0RF NS F11.21 - Opioid dependence, in remission
== END 2024-05-23 09:49 | disposition home or self-care (01) ==
PROVIDERS: PCP Internal Medicine
DX: F11.21 Opioid dependence, in remission (principal)

== ENCOUNTER → 2024-05-23 09:32 | Outpatient (BNVA) | payer OTHER, SELFPAY | PROVIDERS: PCP Internal Medicine | DX: F11.21 Opioid dependence, in remission (principal) | CPT/HCPCS: 96372; Q9992 ==

== ENCOUNTER 2024-06-20 09:26 | Outpatient (AMB) | payer OTHER, SELFPAY ==
--- NOTE | 2024-06-20 09:38 | AM.OFFVISNUR ---
Intake Visit Reasons: Sub inj Allergies moxifloxacin Allergy (Verified 02/29/24 09:01) Vomiting Nursing Note Patient Presents for sublocade 100mg Injection. Current Dose is 100mg. Given in the RLQ with no noted or stated complication. Denies any issues with previous injection. Denies symptoms, and denies any break through cravings. Will follow up with RN in 4 weeks for injection. Will need to see provider for check in 4 weeks after next visit . Office Meds Sublocade 100 mg/0.5 mL solution,extended release subcutaneous syringe Performing Provider: Yuni Mendez CNP Performing Location: [email or web address] Administered by: Charley Armas RN on 06/20/24 13:07 Dose Route Admin Location Dispensed Lot Number Expiration Date [facility] Cloth Cutter 100 mg subcut rlq 0.5 mL [id number] 09/15/25 [address]-3 [employer]. Assessment & Plan Assessment & Plan Orders: Orders AMB Buprenorphine Injection - Patient Supplied Today F11.90 - Opioid use, unspecified, uncomplicated Medications: New Sublocade ER (buprenorphine) 100 mg (0.5 mL) subcut ONCE 0.5 mL 0RF NS F11.90 - Opioid use, unspecified, uncomplicated
== END 2024-06-20 12:06 | disposition home or self-care (01) ==
PROVIDERS: PCP Internal Medicine
DX: F11.90 Opioid use, unspecified, uncomplicated (principal)

== ENCOUNTER → 2024-06-20 09:26 | Outpatient (BNVA) | payer OTHER, SELFPAY | PROVIDERS: PCP Internal Medicine | DX: F11.90 Opioid use, unspecified, uncomplicated (principal) | CPT/HCPCS: 96372; Q9992 ==

== ENCOUNTER 2024-07-18 09:29 | Outpatient (AMB) | payer OTHER, SELFPAY ==
[2024-07-18 09:43] VITALS: BP 130/80; PULSE 63; RESP 19; O2SAT 96
--- NOTE | 2024-07-18 09:43 | AM.OFFVISNUR ---
Vital Signs 07/18/24 09:43 BP 130/80 Blood Pressure Location Rt radial Position Sitting Respiration 19 Pulse 63 Pulse Source Pulse Oximeter Pulse Oximetry (%) 96 Oxygen Delivery Method Room Air Intake Visit Reasons: Sublocade Allergies moxifloxacin Allergy (Verified 02/29/24 09:01) Vomiting Nursing Note Patient Presents for Sublocade Injection. Pt denies any chance of . Current Dose 100mg. Given in the RLQ with no noted or stated complication. Denies any issues with previous injection. Denies symptoms, and denies any break through cravings. Last appt with provider was in April , will follow up with RN in 4 weeks for injection. Will need to see provider for check in next visit in August. Office Meds Sublocade 100 mg/0.5 mL solution,extended release subcutaneous syringe Performing Provider: Yuni Mendez CNP Performing Location: [facility] Administered by: Charley Armas RN on 07/18/24 09:44 Dose Route Admin Location Dispensed Lot Number Expiration Date [facility] Implementation Specialist Payroll 100 mg subcut RUQ 0.5 mL [id number] 09/15/25 [address]-9 [employer]. Assessment & Plan Assessment & Plan Orders: Orders AMB Buprenorphine Injection - Patient Supplied Today F11.21 - Opioid dependence, in remission Medications: New Sublocade ER (buprenorphine) 100 mg (0.5 mL) subcut ONCE 0.5 mL 0RF NS F11.21 - Opioid dependence, in remission
== END 2024-07-18 09:44 | disposition home or self-care (01) ==
PROVIDERS: PCP Internal Medicine
DX: F11.21 Opioid dependence, in remission (principal)

== ENCOUNTER → 2024-07-18 09:29 | Outpatient (BNVA) | payer OTHER, SELFPAY | PROVIDERS: PCP Internal Medicine | DX: F11.21 Opioid dependence, in remission (principal) | CPT/HCPCS: 96372; Q9992 ==

== ENCOUNTER 2024-08-16 09:34 | Outpatient (AMB) | payer OTHER, SELFPAY ==
--- NOTE | 2024-08-16 09:38 | MHC.AM.SUB ---
Intake Visit Reasons: MAT/ Sublocade Allergies moxifloxacin Allergy (Verified 02/29/24 09:01) Vomiting Medication List - Last Reconciled 08/16/24 by Yuni Mendez CNP buprenorphine ER (Sublocade) 100 mg (0.5 mL) subcut ONCE clonidine HCl 0.05 mg (1/2 x 0.1 mg) PO BID PRN docusate sodium 100 mg PO DAILY fluoxetine 40 mg PO DAILY mirtazapine 15 mg PO BEDTIME sennosides (senna) 8.6 mg PO DAILY PRN HPI HPI MAT/ Sublocade: Details: Patient presents for follow up Currently receiving sublocade monthly Therapy every other week mood improving sleep improved appetite improved PFSH Medical History Opioid use disorder Nephrolithiasis Social History Alcohol intake: never Comment: PT LEFT AMA. Patient Tobacco Use Status: Never used Tobacco Substance Use Type: Marijuana service: No Current occupational status: employed Assessment & Plan Assessment & Plan Medications: Changed From fluoxetine 20 mg PO DAILY 30 caps 0RF To fluoxetine 40 mg PO DAILY
--- NOTE | 2024-08-16 09:47 | A.OFFVISCC_ITS ---
Intake Visit Reasons: MAT/ Sublocade Allergies moxifloxacin Allergy (Verified 02/29/24 09:01) Vomiting Medication List - Last Reconciled 08/16/24 by Yuni Mendez CNP buprenorphine ER (Sublocade) 100 mg (0.5 mL) subcut ONCE clonidine HCl 0.05 mg (1/2 x 0.1 mg) PO BID PRN docusate sodium 100 mg PO DAILY fluoxetine 40 mg PO DAILY mirtazapine 15 mg PO BEDTIME sennosides (senna) 8.6 mg PO DAILY PRN HPI HPI MAT/ Sublocade: Details: Patient presents for follow up and Sublocade injection She reports no issues related to injection updated medications still seeing therapist and psychiatrist regularly shared that she would like to work on carrying a baby in the near future and wanted to know what to do related to sublocade discussed and plan to switch to Brixadi next month she will also discuss with her OB at next appt [facility] Medical History Opioid use disorder Nephrolithiasis Social History Alcohol intake: never Comment: PT LEFT AMA. Patient Tobacco Use Status: Never used Tobacco Substance Use Type: Marijuana service: No Current occupational status: employed Review of Systems Const Reports as per HPI and Reports no additional complaints Physical Exam Const General: cooperative, healthy appearing, no acute distress and well groomed Nutritional Appearance: average body habitus Orientation/consciousness: patient oriented x3 Limitations: no limitations Neuro General: patient oriented x3 Office Meds Sublocade 100 mg/0.5 mL solution,extended release subcutaneous syringe Performing Provider: Yuni Mendez CNP Performing Location: [facility] Administered by: Charley Armas RN on 08/16/24 09:54 Dose Route Admin Location Dispensed Lot Number Expiration Date [facility] Layup Worker 100 mg subcut LLQ 0.5 mL [id number] 09/15/25 [address]-6 [employer]. Assessment & Plan Assessment & Plan (1) Opioid use disorder, moderate, in sustained remission, dependence: Code(s): F11.21 - Opioid dependence, in remission Category: Medical Plan: * labs ordered * brixadi rx [facility] to [facility] * d/c sublocade * follow up 4 weeks Orders: Orders AMB Buprenorphine Injection - Patient Supplied 08/16/24 F11.90 - Opioid use, unspecified, uncomplicated Liver Panel 08/16/24 Z79.899 - Other exterminator helper (current) drug therapy Medications: New buprenorphine ER (Brixadi Monthly) 96 mg (0.27 mL) subcut Q28D 0.27 mL 5RF Changed From fluoxetine 20 mg PO DAILY 30 caps 0RF To fluoxetine 40 mg PO DAILY Discontinued buprenorphine ER (Sublocade) once every 28 days Discontinued Reason: Doctor's Order 100 mg (0.5 mL) subcut ONCE 0.5 mL 5RF
== END 2024-08-16 09:56 | disposition home or self-care (01) ==
PROVIDERS: PCP Internal Medicine; Visit Provider Nurse Practitioner Psychiatric/Mental Health
DX: F11.90 Opioid use, unspecified, uncomplicated (principal); F11.21 Opioid dependence, in remission
CPT/HCPCS: 99214

== ENCOUNTER → 2024-08-16 09:34 | Outpatient (BNVA) | payer OTHER, SELFPAY | PROVIDERS: PCP Internal Medicine; Visit Provider Nurse Practitioner Psychiatric/Mental Health | DX: F11.21 Opioid dependence, in remission (principal) | CPT/HCPCS: 96372; Q9992 ==

== ENCOUNTER 2024-09-20 15:05 | Outpatient (AMB) | payer OTHER, SELFPAY ==
--- NOTE | 2024-09-20 15:28 | AM.OFFVISNUR ---
Intake Visit Reasons: Brix injection Allergies moxifloxacin Allergy (Verified 02/29/24 09:01) Vomiting Nursing Note Patient Presents for Brixadi Injection. Given in the JIMBO with no noted or stated complication. This is her first injection. Denies symptoms, and denies any break through cravings. Will follow up with RN in 4 weeks for injection. Will need to see provider for check in October . Office Meds buprenorphine 96 mg/0.27 mL solution,exten.rel.subcutaneous syringe Performing Provider: Yuni Mendez CNP Performing Location: [facility] Administered by: Charley Armas RN on 09/20/24 15:32 Dose Route Admin Location Dispensed Lot Number Expiration Date [facility] Manager Radio 96 mg subcut EZEQUIEL 0.27 mL [id number] 09/14/25 Assessment & Plan Assessment & Plan Orders: Orders AMB Buprenorphine Injection - Patient Supplied 09/20/24 F11.90 - Opioid use, unspecified, uncomplicated
== END 2024-09-20 15:40 | disposition home or self-care (01) ==
LOC: HO.HCC 15:06
PROVIDERS: PCP Internal Medicine
DX: F11.90 Opioid use, unspecified, uncomplicated (principal)

== ENCOUNTER → 2024-09-20 15:05 | Outpatient (BNVA) | payer OTHER, SELFPAY | PROVIDERS: PCP Internal Medicine | DX: F11.90 Opioid use, unspecified, uncomplicated (principal) | CPT/HCPCS: 96372; J0578 ==

== ENCOUNTER 2024-10-26 10:02 | Outpatient (AMB) | payer OTHER, SELFPAY ==
--- NOTE | 2024-10-26 12:09 | AM.OFFVISNUR ---
Vital Signs 10/26/24 12:40 BP 140/98 H Blood Pressure Location Lt brachial Position Sitting Respiration 16 Pulse 86 Pulse Source Pulse Oximeter Pulse Oximetry (%) 97 Oxygen Delivery Method Room Air Intake Visit Reasons: Brix injection Allergies moxifloxacin Allergy (Verified 02/29/24 09:01) Vomiting Nursing Note Pt presents for Brixadi injection. Current Dose is 96mg Q 28 days. No issues with previous injeciton Pt reports mild w/d sx prior to todays appt as she went 5 weeks i/o 4 between injections. She reports the sx are nothing I can't deal with Last appt with provider 08/16/24. Next appt with provider 11/24/24. Next injection of 96mg due in 4 weeks. Pt reports her recovey is going well. She declined need for testing reporting that she is working closely with FRAME POLISHER to conceive and she knows she is not currently . She did discuss with FRAME POLISHER the brixadi and and per pt. FRAME POLISHER feels this is a better option than the sublocade. Pt's BP elevated. Pt reports that she has a h/o higher BP when she was heavier and she is followed by PCP for this and sees PCP regularly. Pt denied any S/S of increased BP including blurred vision, chest pain, H/A, SOB. She also reports her BP tends to run higher when in Dr. office. Encouraged pt. to continue to receive monitoring of BP from PCP. Also encouraged pt to call if experiencing cravings between doses. Pt verbalized understanding. Office Meds buprenorphine 96 mg/0.27 mL solution,exten.rel.subcutaneous syringe Performing Provider: Yuni Mendez CNP Performing Location: [facility] Administered by: Syl Vogel RN on 10/26/24 13:24 Dose Route Admin Location Dispensed Lot Number Expiration Date [facility] Plumber Helper 96 mg subcut EZEQUIEL 0.27 mL [id number] 08/14/26 31238-235-47 [employer]. Comments: Pt tolerated injection well. Educated on S/S to report. See nursing note for full details. Assessment & Plan Assessment & Plan Orders: Orders AMB Buprenorphine Injection - Patient Supplied Today F11.21 - Opioid dependence, in remission
[2024-10-26 12:40] VITALS: BP 140/98; PULSE 86; RESP 16; O2SAT 97
== END 2024-10-26 10:21 | disposition home or self-care (01) ==
PROVIDERS: PCP Internal Medicine
DX: F11.21 Opioid dependence, in remission (principal)

== ENCOUNTER → 2024-10-26 10:02 | Outpatient (BNVA) | payer OTHER, SELFPAY | PROVIDERS: PCP Internal Medicine | DX: F11.21 Opioid dependence, in remission (principal); Z79.899 Other long term (current) drug therapy | CPT/HCPCS: 96372; J0578 ==

== ENCOUNTER 2024-11-24 10:11 | Outpatient (AMB) | payer OTHER, SELFPAY ==
--- NOTE | 2024-11-24 10:29 | A.OFFVISCC_ITS ---
Vital Signs 11/24/24 10:30 BP 120/85 Position Right Lateral Respiration 19 Pulse 91 Pulse Source Pulse Oximeter Pulse Oximetry (%) 98 Intake Visit Reasons: MAT/ Brix injection Allergies moxifloxacin Allergy (Verified 02/29/24 09:01) Vomiting HPI HPI MAT/ Brix injection: Details: Patient presents for OUD treatment follow up ad discussion of Brixadi injection Increased dose to 128mg today started to feel withdrawal sx about 2 weeks in chronic constipation --senna and dulcolax Physical Exam Vital Signs: Last Vital Signs Pulse 91 11/24/24 10:30 Resp 19 11/24/24 10:30 Pulse Ox 98 11/24/24 10:30 Office Meds buprenorphine 128 mg/0.36 mL solution,ext.rel.subcutaneous syringe Performing Provider: Yuni Mendez CNP Performing Location: [facility] Administered by: Charley Armas RN on 11/24/24 10:36 Dose Route Admin Location Dispensed Lot Number Expiration Date [facility] Pipe Fitter Welding 128 mg subcut EZEQUIEL 0.36 mL [id number] 08/14/26 29613-388-35 [employer]. Results AMB Test Urine AMB Test Urine Negative Last Edit by Charley Armas RN on 5 10:37 Assessment & Plan Assessment & Plan Orders: Orders AMB HCG Urine Test Today F11.21 - Opioid dependence, in remission AMB Buprenorphine Injection - Patient Supplied Today F11.90 - Opioid use, unspecified, uncomplicated Medications: Discontinued mirtazapine Discontinued Reason: Patient no longer taking 15 mg PO BEDTIME 30 tabs 3RF buprenorphine ER (Brixadi Monthly) Discontinued Reason: Doctor's Order 96 mg (0.27 mL) subcut Q28D 0.27 mL 5RF clonidine HCl Discontinued Reason: Patient no longer taking 0.05 mg (1/2 x 0.1 mg) PO BID PRN 60 tabs 0RF anxiety PFSH Medical History Opioid use disorder Nephrolithiasis Social History Alcohol intake: never Comment: PT LEFT AMA. Patient Tobacco Use Status: Never used Tobacco Substance Use Type: Marijuana service: No Current occupational status: employed
[2024-11-24 10:30] VITALS: BP 120/85; PULSE 91; RESP 19; O2SAT 98
== END 2024-11-24 10:59 | disposition home or self-care (01) ==
PROVIDERS: PCP Internal Medicine; Visit Provider Nurse Practitioner Psychiatric/Mental Health
DX: F11.90 Opioid use, unspecified, uncomplicated (principal); F11.21 Opioid dependence, in remission

== ENCOUNTER → 2024-11-24 10:11 | Outpatient (BNVA) | payer OTHER, SELFPAY | PROVIDERS: PCP Internal Medicine; Visit Provider Nurse Practitioner Psychiatric/Mental Health | DX: F11.21 Opioid dependence, in remission (principal) | CPT/HCPCS: 81025; 96372; J0578 ==

== ENCOUNTER → 2024-12-21 16:38 | Outpatient (BNVA) | payer OTHER, SELFPAY | PROVIDERS: PCP Internal Medicine | DX: F11.21 Opioid dependence, in remission (principal); Z51.81 Encounter for therapeutic drug level monitoring | CPT/HCPCS: 81025; 96372; J0578 ==

== ENCOUNTER 2025-01-18 10:02 | Outpatient (AMB) | payer OTHER, SELFPAY ==
--- OUTSIDE RECORDS SUMMARY | 2025-01-18 11:41 | XMS_ITS | Clinical Summary ---
[facility] Address [address] [place] [address] Care Team Providers Care Studio Associate Name Role Phone ZulekyaBecky Amada Primary Care Pro vider Surgical History Surgery Date Site/Laterality Comments LITHOTRIPSY PROCEDURE: HISTORICAL LITHOTRIPSY Medical History Medical History Date Comments HTN (hypertension) DX:HTN (hyper tension) Nephrolithiasis DX:Nephrolithias is Former smoker 03/2017 DX:Former smoker ; COMMENT: quit w/patch use Family History Medical History Relation Name Comments Asthma Brother Hypertension Father bipolar d/o Hypertension Mother depression, anx iety, kidney stones, asthma Coronary artery disease Mother's side grn dftr. Heart attack Paternal Grandmother Lung cancer Uncle Blindness Neg Hx Breast cancer Neg Hx Cataracts Neg Hx Cervical cancer Neg Hx Colon cancer Neg Hx Glaucoma Neg Hx Macular degeneration Neg Hx Ovarian cancer Neg Hx Strabismus Neg Hx Uterine cancer Neg Hx Relation Name Status Comments Brother Alive Father Alive Maternal Grandfather Maternal Grandmother Alive Mother Alive Mother's side Paternal Grandfather Paternal Grandmother Alive Sister Alive Uncle Social History Tobacco Use Types Packs/Day Years Used Date Smoking Tobacco: Former Cigarettes Q uit: 11/17/2018 Smokeless Tobacco: Never Alcohol Use Standard Drinks/Week Comments Yes 0 (1 standard drink = 0.6 oz pur e alcohol) Comments Unknown Sex and Gender Information Value Date Recorded Sex Assigned at Not on file Legal Sex Female 8:48 AM EST Gender Identity Not on file Sexual Orientation Not on file Obstetrics History Plan of Treatment Health Maintenance Due Date Last Done Comments Hepatitis B Vaccines (1 of 3 - 19+ 3-dose series) 2009 Cervical Cancer Screening: P ap Smear 2011 Cholesterol Screening (Lipid Panel) 10/18/2022 Depression Screening 10/18/2022 HIV Screening 10/18/2022 Hepatitis C Screening 10/18/2022 Social Influencers of Health Screening 10/18/2022 Hypertension/CHF/CAD Annual BMP Blood Test 10/30/2022 COVID-19 Vaccine (1 - 2023-2 5 season) 2024 Influenza Vaccine (#1) 2024 8, 07/30/2013 DTaP,Tdap,and Td Vaccines (2 - Td or Tdap) 01/13/2025 01/13/2015 HIB Vaccines Aged Out No longer eligi ble based on patient's age to complete this topic HPV Vaccines Aged Out No longer eligi ble based on patient's age to complete this topic Hepatitis A Vaccines Aged Out No long er eligible based on patient's age to complete this topic IPV Vaccines Aged Out No longer eligi ble based on patient's age to complete this topic MMR Vaccines Aged Out No longer eligi ble based on patient's age to complete this topic Meningococcal ACWY Vaccine Aged Out N o longer eligible based on patient's age to complete this topic Meningococcal B Vacine Aged Out No lo nger eligible based on patient's age to complete this topic Pneumococcal Vaccine: Pediatrics (0 to 5 Years) and At-Risk Patients (6 to 64 Years) Aged Out No longer eligible b ased on patient's age to complete this topic RSV Immunization Patients Under 20 months Aged Out No longer eligible b ased on patient's age to complete this topic Varicella Vaccines Aged Out No longer eligible based on patient's age to complete this topic Care Teams Studio Associate Relationship Specialty Start Date End Date Amada Drake DO PCP - General Internal Medicine 10/24/13
--- NOTE | 2025-01-18 14:21 | AM.OFFVISNUR ---
Intake Visit Reasons: Brix injection Allergies moxifloxacin Allergy (Verified 02/29/24 09:01) Vomiting Nursing Note Patient Presents for Brixadi Injection. Current Dose 128mg. Given in the EZEQUIEL with no noted or stated complications. Denies any issues with previous injection. Denies symptoms, and denies any break through cravings. Will follow up with RN in 4 weeks for injection. Office Meds buprenorphine 128 mg/0.36 mL solution,ext.rel.subcutaneous syringe Performing Provider: Yuni Mendez CNP Performing Location: [facility] Administered by: Charley Armas RN on 01/18/25 08:24 Dose Route Admin Location Dispensed Lot Number Expiration Date [facility] Machine Trimmer 128 mg subcut EZEQUIEL 0.36 mL [id number] 02/12/27 65658-667-08 [employer]. Assessment & Plan Assessment & Plan Orders: Orders AMB Buprenorphine Injection - Patient Supplied 01/18/25 F11.90 - Opioid use, unspecified, uncomplicated AMB HCG Urine Test 01/18/25 F11.21 - Opioid dependence, in remission Medications: New buprenorphine ER 128 mg (0.36 mL) subcut ONCE 0.36 mL 0RF F11.90 - Opioid use, unspecified, uncomplicated Coding
== END 2025-01-18 10:25 | disposition home or self-care (01) ==
PROVIDERS: PCP Internal Medicine
DX: F11.21 Opioid dependence, in remission (principal); F11.90 Opioid use, unspecified, uncomplicated

== ENCOUNTER → 2025-01-18 10:02 | Outpatient (BNVA) | payer OTHER, SELFPAY | PROVIDERS: PCP Internal Medicine | DX: F11.21 Opioid dependence, in remission (principal) | CPT/HCPCS: 81025; 96372; J0578 ==

== ENCOUNTER 2025-02-16 11:04 | Outpatient (AMB) | payer OTHER, SELFPAY ==
--- NOTE | 2025-02-16 11:15 | AM.OFFVISNUR ---
Intake Visit Reasons: Brix injection Allergies moxifloxacin Allergy (Verified 02/29/24 09:01) Vomiting Nursing Note Patient Presents for Brixadi Injection. Current Dose 128mg . Given in the EZEQUIEL with no noted or stated complications. Denies any issues with previous injection. Denies symptoms, and denies any break through cravings. Will follow up with RN in 4 weeks for injection. Will need to see provider for check in in March. Office Meds buprenorphine 128 mg/0.36 mL solution,ext.rel.subcutaneous syringe Performing Provider: Yuni Mendez CNP Performing Location: [facility] Administered by: hCarley Armas RN on 02/16/25 11:17 Dose Route Admin Location Dispensed Lot Number Expiration Date [facility] Insurance Law Specialist 128 mg subcut EZEQUIEL 0.36 mL [id number] 02/12/27 33681-257-00 [employer]. Assessment & Plan Assessment & Plan Orders: Orders AMB Buprenorphine Injection - Patient Supplied Today F11.90 - Opioid use, unspecified, uncomplicated Medications: New buprenorphine ER 128 mg (0.36 mL) subcut ONCE 0.36 mL 0RF F11.90 - Opioid use, unspecified, uncomplicated Coding
--- OUTSIDE RECORDS SUMMARY | 2025-02-16 12:51 | XMS_ITS | Clinical Summary ---
[facility] Organization [facility] Address [address] [place] [address] Care Team Providers Care Mining Engineer Name Role Phone ZuleykaBecky Amada Primary Care Pro vider Surgical History [...] age to complete this topic Care Teams Mining Engineer Relationship Specialty Start Date End Date Amada Drake DO PCP - General Internal Medicine 10/24/13
--- OUTSIDE RECORDS SUMMARY | 2025-02-16 12:51 | XMS_ITS | Clinical Summary ---
Author Organization [employer] Address [address] [place] [address] 7 [place] [address] Care Team Providers Care Powerhouse Tender Name Role Phone Cecy Junior DO Primary Care Provider [phone] Allergies Active Allergy Reactions Criticality Noted Date Comments Moxifloxacin 04/05/2023 Other reaction(s): vomiting Paroxetine 04/05/2023 Other reaction(s): worsened anxiety Medications buprenorphine ER (Sublocade) 100 mg/0.5mL injection Inject 1 each under the skin every month to absorb continually. proscribed by [facility] Active sertraline (Zoloft) 50 MG tablet Take 25 mg by mouth Once per day. 4 Active senna (Senokot) 8.6 MG tablet Take 1 tablet by mouth at bedtime. 4 Active mirtazapine (Remeron) 15 MG tablet Take 15 mg by mouth at bedtime. 4 Active FLUoxetine (PROzac) 20 MG capsule Take 20 mg by mouth Once per day. 4 Active docusate sodium (Colace) 100 MG capsule Take 100 mg by mouth Once per day. 4 Active cloNIDine (Catapres) 0.1 MG tablet Take 0.1 mg by mouth at bedtime. 4 Active Active Problems Problem Noted Date Diagnosed Date Encounter for smoking cessation counseling 08/31 Assessment & Plan (08/31/2023 10:54 AM EDT): She discussed wanting to quit smoking this morning. She states she has been smoking for appx 9m, but 1ppd. We discussed the SE/AE of both Chantix and Wellbutrin and she decided for the time being that she would like to do Chantix. Her does not smoke and is supportive of her quitting. We also discussed that she could talk with her therapist about behavioral techniques as well to help her. We discussed that Chantix is known to have a significant SE of vivid dreams; we discussed that if those were too much, we could switch her to Wellbutrin. Immunization due 08/31/2023 Assessment & Plan (08/31/2023 10:48 AM EDT): Received flu vax today. Encounter to establish care 08/31/2023 Assessment & Plan (08/31/2023 10:52 AM EDT): Fabi was seen today to establish care with myself. She states she is doing well. She would like to quit smoking. She currently smokes 1ppd. She states her and her are both looking to get in the next couple of years and she would like to quit. 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 She does smoke marijuana nightly after work. She was recently started on Mirtazapine for night. She is getting back to therapy with [facility]. She had recent labwork in April; we will reorder labwork at her next follow up, in about a year. Asymmetric tonsils 04/09/2023 Depression with anxiety 04/09/2023 Frequent headaches 04/09/2023 Gastroesophageal reflux disease 04/09/2023 Menorrhagia with regular cycle 04/09/2023 Obesity (BMI 30-39.9) 04/09/2023 Vitamin D deficiency 04/09/2023 Seasonal allergies 04/09/2023 Immunizations Name Administration Dates Next Due Influenza Injectable Quadriv alant Preservative Free IIV4 MDCK 08/31/2023 Influenza, IIV3, injectable 08/17/2018, 3 Influenza, Injectable, MDCK, preservative free 0 07/22/2024 Tdap 09/15/2021,01/13/2015 Family History Medical History Relation Name Comments HTN Brother Diabetes Father Type 2 Coronary artery disease Maternal Grandfather Heart attack Maternal Grandfather No Known Problems Maternal Grandmother Anxiety disorder Mother Depression Mother HTN Mother No Known Problems Paternal Grandfather No Known Problems Paternal Grandmother Bipolar disorder Sister HTN Sister Relation Name Status Comments Brother Alive Father Alive Maternal Grandfather Maternal Grandmother Mother Alive Paternal Grandfather Paternal Grandmother Sister Alive Social History Tobacco Use Types Packs/Day Years Used Date Smoking Tobacco: Former Cigarettes Passive Smoke Exposure: Past Smokeless Tobacco: Never Tobacco Cessation:Counseling Given: Not Answered Alcohol Use Standard Drinks/Week Comments Not Currently 0 (1 standard drink = 0.6 oz pure alcohol) Rarely, once or twice a year. Alcohol Answer Date Recorded How often do you have a drink containing alcohol ? 0 09/05/2024 How many drinks containing a lcohol do you have on a typical day when you are drinking? 0 09/05/2024 How often do you have six or more drinks on one occasion? 0 09/05/2024 Housing Stability Answer Date Recorded What is your housing situation today? I have mary ann barbosa 09/05/[address] you li ve. Do you have problems with any of the following? None of the above 09/05/2024 Food Insecurity Answer Date Recorded Within the past 12 months, y ou worried that your food would run out before you got money to buy more: Never True 09/05/2024 Within the past 12 months,th e food you bought just didn't last and you didn't have enough money to get more: Never True Transportation Answer Date Recorded In the past 12 months, has l ack of transportation kept you from medical appts, meetings, work or from getting things needed for daily living? No 09/05/2024 Intimate Partner Violence Answer Date R ecorded Within the last year, have y ou been afraid of your partner or ex-partner? 2 09/05/2024 Within the last year, have y ou been humiliated or emotionally abused in other ways by your partner or ex-partner? 2 Within the last year, have y ou been kicked, hit, slapped, or otherwise physically hurt by your partner or ex-partner? 2 09/05/2024 Within the last year, have y ou been raped or forced to have any kind of sexual activity by your partner or ex-partner? 2 09/05/2024 Utilities Answer Date Recorded In the past 12 months, has t he electric, gas, oil or water company threatened to shut off services in your home? No 09/05/2024 Depression Answer Date Recorded Patient Health Questionnaire-2 Score 0 09/05/2024 Internet Access Answer Date Recorded Internet Access Q1 Yes 09/05/2024 Internet Access Q2 Not on file 09/05/2024 Education Answer Date Recorded What is the highest level of school you have completed or the highest degree you have received? 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 Not on sofia e Last Filed Vital Signs Vital Sign Reading Time Taken Comments Blood Pressure 120/80 09/05/2024 10:58 AM EDT Pulse 75 09/05/2024 10:58 AM EDT Temperature 36.6 ??C (97.9 ??F) 09/05/2024 1 0:58 AM EDT Respiratory Rate 16 04/09/2023 10:4 5 AM EDT Oxygen Saturation 97% 09/05/2024 10: 58 AM EDT Inhaled Oxygen Concentration - - Weight 82.9 kg (182 lb 12.8 oz) 024 10:58 AM EDT Height 162.6 cm (5' 4 ) 09/05/2024 10:5 8 AM EDT Body Mass Index 31.38 09/05/2024 10:58 AM EDT Plan of Treatment Health Maintenance Due Date Last Done Comments HIV Screening 1990 Hepatitis C Screening 01/26/2008 Hepatitis B Vaccines (1 of 3 - 19+ 3-dose series) 2009 Pap Smear 2011 Cervical Cancer Screening 01/26/2020 HPV/Cotest 01/26/2020 Alcohol/Substance Use Screening 09/05/2025 09/05/2024 Depression Screening 09/05/2025 09/05/2024, 09/05/20 24 Family Planning (PISQ) 09/05/2025 09/05/2024 SDOH Screening 09/05/2025 09/05/2024 Tobacco Screening 09/05/2025 09/05/2024 Lipid Panel 03/31/2026 03/31/2021 DTaP/Tdap/Td Vaccines (3 - Td or Tdap) 09/15/2031 09/15/2021, 01/13/2015 Zoster Vaccines (1 of 2) 01/26/2040 RSV Patients and Patients Aged 60 years or older (1 - 1-dose 75+ series) 2065 COVID-19 Vaccine Completed 07/22/2024, 04/2021, 11/24/2020 Influenza Vaccine Completed 07/22/2024, , 08/17/2018, Additional history exists HIB Vaccines Aged Out No longer eligi [...] patient's age to complete this topic Meningococcal Vaccine Aged Out No shazia prieto eligible based on patient's age to complete this topic Pneumococcal Vaccine: Pediatrics (0 to 5 Years) and At-Risk Patients (6 to 49) Years) Aged Out No longer eligible based on patient's age to complete this topic RSV under 20 months Aged Out No longe r eligible based on patient's age to complete this topic Rotavirus Vaccines Aged Out No longer eligible based on patient's age to complete this topic Procedures Procedure Name Priority Date/Time Associated Diagnosis Comments AMB REFERRAL TO GASTROENTEROLOGY Routine 11/30/2024 Recurrent vomiting LIPID PANEL, STANDARD Routine 03/31/2021 10:50 AM EDT from Last 3 Months or Most Recently Relevant to Health Maintenance Results * Referral to Gastroenterology (11/30/2024) Result [facility] OUTPATIENT REFERRAL ORDERABLES Final Result * -Lipid Panel (03/31/2021 10:50 AM EDT) LDL CHOLESTEROL, CALCULATED 128 (0-130) MG/DL [facility] CHOLESTEROL, TOTAL 190 (<200) MG/DL [facility] HDL CHOL 48 (>39) MG/DL [facility] NON HDL CHOLESTEROL (CALC) 142 (<160) MG/DL [facility] TRIGLYCERIDE 71 (<150) MG/DL [facility] 03/31/2021 10:5 0 AM EDT us Amanda Dickson LITHOGRAPHIC PHOTOGRAPHER APPRENTICE LAB BLOOD ORDERABLES Bernice augustin Result [facility] [address] from Last 3 Months or Most Recently Relevant to Health Maintenance Insurance , [address] [place] [address] Care Teams Powerhouse Tender Relationship Specialty Start Date End Date Cecy Junior DO [address] [place] [address] PCP - General Family Medicine 08/10/24
== END 2025-02-16 11:18 | disposition home or self-care (01) ==
LOC: HO.HCC 11:04
PROVIDERS: PCP Internal Medicine
DX: F11.90 Opioid use, unspecified, uncomplicated (principal)

== ENCOUNTER → 2025-02-16 11:04 | Outpatient (BNVA) | payer OTHER, SELFPAY | PROVIDERS: PCP Internal Medicine | DX: F11.90 Opioid use, unspecified, uncomplicated (principal) | CPT/HCPCS: 96372; J0578 ==

== ENCOUNTER 2025-03-16 10:04 | Outpatient (AMB) | payer OTHER, SELFPAY ==
--- NOTE | 2025-03-16 10:04 | A.OFFVIS_ITS ---
Vital Signs 03/16/25 10:15 Pulse 68 Pulse Source Pulse Oximeter Pulse Oximetry (%) 97 Oxygen Delivery Method Room Air Intake Visit Reasons: Brix injection Allergies moxifloxacin Allergy (Verified 03/16/25 10:16) Vomiting HPI HPI Brix injection: Details: She is doing well with monthly Brixadi. She is getting left posterior upper arm injection today. She has no concerns. She is not using opioids and has no concerns,cannot urinate. [facility] Medical History Opioid use disorder Nephrolithiasis Social History Alcohol intake: never Comment: PT LEFT AMA. Patient Tobacco Use Status: Never used Tobacco Substance Use Type: Marijuana service: No Current occupational status: employed Review of Systems Const All systems reviewed & are unremarkable except as noted in HPI and below Physical Exam Vital Signs: Last Vital Signs Pulse 68 03/16/25 10:15 Pulse Ox 97 03/16/25 10:15 Oxygen Delivery Method Room Air 03/16/25 10:15 Const General: cooperative Office Meds buprenorphine 128 mg/0.36 mL solution,ext.rel.subcutaneous syringe Performing Provider: Sarah Heredia MD Performing Location: [facility] Administered by: Sarah Heredia MD on 03/16/25 11:36 Dose Route Admin Location Dispensed Lot Number Expiration Date NDC Entry Level Account Executive 128 mg subcut left arm 0.36 mL [id number] 02/12/27 19548-715-75 [employer]. Results AMB Test Urine AMB Test Urine Negative Last Edit by Suraj Fiore CMA on 03/16/25 10:19 Results Reviewed Results Reviewed: Laboratory Last Values Tst Clinic Negative 03/16/25 10:17 Assessment & Plan Assessment & Plan (1) Opioid use disorder, moderate, in sustained remission, dependence: Comment: She is doing well with Brixadi Code(s): F11.21 - Opioid dependence, in remission Category: Medical Plan: Continue Brixadi See monthly Plan Continue Brixadi. Patient does Counseling She is not interested in HIV or Hepatitis C testing at this time and will let us know if concerns. Orders: Orders AMB 14 Panel Urine Drug Screen Today Z51.81 - Encounter for therapeutic drug level monitoring AMB Buprenorphine Injection - Patient Supplied Today F11.21 - Opioid dependence, in remission AMB HCG Urine Test Today Z32.02 - Encounter for test, result negative Medications: New buprenorphine ER (Brixadi Monthly) 128 mg (0.36 mL) subcut Q28D 28 days 0.36 mL 5RF Coding Level of Care Code Est Pt Level 3 (96004) Diagnoses Opioid use disorder, moderate, in sustained remission, dependence F11.21
[2025-03-16 10:15] VITALS: PULSE 68; O2SAT 97
--- OUTSIDE RECORDS SUMMARY | 2025-03-16 11:02 | XMS_ITS | Clinical Summary ---
Author Organization [employer] Address [address] [place] [address] 7 [place] [address] Care Team Providers Care Education Department Registrar Name Role Phone Cecy Junior DO Primary Care Provider [phone] Allergies Active Allergy Reactions Criticality Noted Date Comments Moxifloxacin 04/05/2023 Other reaction(s): vomiting Paroxetine 04/05/2023 Other reaction(s): worsened anxiety Medications buprenorphine ER (Sublocade) 100 mg/0.5mL injection Inject 1 each under the skin every month to absorb continually. proscribed by [facility] Active sertraline (Zoloft) 50 MG tablet [...] like to quit. 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 She does smoke marijuana nightly after work. She was recently started on Mirtazapine for night. She is getting back to therapy with [facility]. 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 on file Not [...] Procedure Name Priority Date/Time Associated Diagnosis Comments LIPID PANEL, STANDARD Routine 03/31/2021 10:50 AM EDT from Last 3 Months or Most Recently Relevant to Health Maintenance Results * -Lipid Panel (03/31/2021 10:50 AM EDT) LDL CHOLESTEROL, CALCULATED 128 (0-130) MG/DL [facility] CHOLESTEROL, TOTAL 190 (<200) MG/DL [facility] HDL CHOL 48 (>39) MG/DL [facility] NON HDL CHOLESTEROL (CALC) 142 (<160) MG/DL [facility] TRIGLYCERIDE 71 (<150) MG/DL [facility] 03/31/2021 10:5 0 AM EDT Amandaitalo Dickson [facility] [employer] LAB BLOOD ORDERABLES Bernice demetria Result [facility] [address] from Last 3 Months or Most Recently Relevant to Health Maintenance Insurance , [address] [place] [address] Care Teams Education Department Registrar Relationship Specialty Start Date End Date Cecy Junior DO [address] [place] [address] PCP - General Family Medicine 08/10/24
--- OUTSIDE RECORDS SUMMARY | 2025-03-16 11:02 | XMS_ITS | Clinical Summary ---
Author Organization [facility] it Address [address] [place] [address] Care Team Providers Care Telemetry Registered Nurse Name Role Phone ZuleykaBecky Amada Primary Care [...] Vaccine (1 - 2023-2 5 season) 2024 DTaP,Tdap,and Td Vaccines (2 - Td or Tdap) 01/13/2025 01/13/2015 Influenza Vaccine (Season Ended) 2025 08/17/2018, 07/30/2013 HIB Vaccines Aged Out No longer eligi [...] age to complete this topic Meningococcal B Vaccine Aged Out No l onger eligible based on patient's age to complete [...] age to complete this topic Care Teams Telemetry Registered Nurse Relationship Specialty Start Date End Date Amada Drake DO PCP - General Internal Medicine 10/24/13
== END 2025-03-16 10:46 | disposition home or self-care (01) ==
LOC: HO.HCC 10:05
PROVIDERS: PCP Internal Medicine; Visit Provider Internal Medicine
DX: F11.21 Opioid dependence, in remission (principal); Z32.02 Encounter for pregnancy test, result negative
CPT/HCPCS: 99213

== ENCOUNTER → 2025-03-16 10:04 | Outpatient (BNVA) | payer OTHER, SELFPAY | PROVIDERS: PCP Internal Medicine; Visit Provider Internal Medicine | DX: F11.21 Opioid dependence, in remission (principal); Z51.81 Encounter for therapeutic drug level monitoring | CPT/HCPCS: 81025; 96372; J0578 ==

== ENCOUNTER 2025-04-13 09:37 | Outpatient (AMB) | payer OTHER, SELFPAY ==
--- NOTE | 2025-04-13 09:38 | MHC.AM.SUB ---
Vital Signs 04/13/25 09:44 BP 130/78 Blood Pressure Location Lt brachial Position Sitting Pulse 63 Pulse Source Pulse Oximeter Pulse Oximetry (%) 98 Oxygen Delivery Method Room Air Intake Visit Reasons: MAT/Injection Brixadi Intake Note: Patient presents for Brixadi injection Allergies moxifloxacin Allergy (Verified 03/16/25 10:16) Vomiting HPI HPI MAT/Injection Brixadi: Details: She has been doing well and hooked up with therapist. She has no complaints. She likes Brixaldi. She has constipation manageble through Colace. Review of Systems Const All systems reviewed & are unremarkable except as noted in HPI and below Physical Exam Vital Signs: Last Vital Signs Pulse 63 04/13/25 09:44 BP 130/78 04/13/25 09:44 Pulse Ox 98 04/13/25 09:44 Oxygen Delivery Method Room Air 04/13/25 09:44 Const General: cooperative Office Meds buprenorphine 128 mg/0.36 mL solution,ext.rel.subcutaneous syringe Performing Provider: Sarah Heredia MD Performing Location: [facility] Administered by: Sarah Heredia MD on 04/13/25 10:14 Dose Route Admin Location Dispensed Lot Number Expiration Date [facility] Parts And Service Manager 128 mg subcut right arm 0.36 mL [id number] 04/14/27 35428-559-72 [employer]. 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 Patient Tobacco Use Status: Never used Tobacco Substance Use Type: Marijuana service: No Current occupational status: employed Assessment & Plan Assessment & Plan (1) Opioid use disorder, moderate, in sustained remission, dependence: Comment: She is doing well with Brixadi Code(s): F11.21 - Opioid dependence, in remission Category: Medical Plan: Continue Brixadi See in one month no Orders: Orders AMB Buprenorphine Injection - Patient Supplied Today F11.21 - Opioid dependence, in remission Medications: New buprenorphine ER 128 mg (0.36 mL) subcut ONCE 0.36 mL 0RF F11.21 - Opioid dependence, in remission Refilled buprenorphine ER (Brixadi Monthly) 128 mg (0.36 mL) subcut Q28D 30 days 0.72 mL 5RF buprenorphine ER (Brixadi Monthly) 128 mg (0.36 mL) subcut Q28D 30 days 0.72 mL 5RF buprenorphine ER (Brixadi Monthly) 128 mg (0.36 mL) subcut Q28D 30 days 0.72 mL 5RF
[2025-04-13 09:44] VITALS: BP 130/78; PULSE 63; O2SAT 98
--- OUTSIDE RECORDS SUMMARY | 2025-04-13 09:58 | XMS_ITS | Clinical Summary ---
Author Organization [employer] Address [address] [place] [address] 7 [place] [address] Care Team Providers Care Account Services Associate Name Role Phone Cecy Junior DO Primary Care Provider [phone] Allergies Active Allergy Reactions Criticality Noted Date Comments Moxifloxacin 04/05/2023 Other reaction(s): vomiting Paroxetine 04/05/2023 Other reaction(s): worsened anxiety Medications buprenorphine ER (Sublocade) 100 mg/0.5mL injection Inject 1 each under the skin every month to absorb continually. proscribed by [facility] Active sertraline (Zoloft) 50 MG tablet [...] like to quit. 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 She does smoke marijuana nightly after work. She was recently started on Mirtazapine for night. She is getting back to therapy with [facility]. She had recent labwork in April; we will reorder labwork at her next follow up, in about a year. 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 Not on file Not [...] Date Last Done Comments HIV Screening 1990 Disability Screening 1990 Hepatitis C Screening 01/26/2008 Hepatitis [...] LAB SYSTEM CHOLESTEROL, TOTAL 190 (<200) MG/DL [facility] HDL CHOL 48 (>39) MG/DL [facility] NON HDL CHOLESTEROL (CALC) 142 (<160) MG/DL [facility] TRIGLYCERIDE 71 (<150) MG/DL [facility] 03/31/2021 10:5 0 AM EDT Amanda Dickson INTENSIVE CARE NURSE LAB BLOOD ORDERABLES Bernice augustin Result [facility] [address] from Last 3 Months or Most Recently Relevant to Health Maintenance Insurance , [address] [place] [address] Care Teams Account Services Associate Relationship Specialty Start Date End Date Cecy Junior DO [address] [place] [address] PCP - General Family Medicine 08/10/24
== END 2025-04-13 10:10 | disposition home or self-care (01) ==
LOC: HO.HCC 09:37
PROVIDERS: PCP Internal Medicine; Visit Provider Internal Medicine
DX: F11.21 Opioid dependence, in remission (principal)
CPT/HCPCS: 99213

== ENCOUNTER → 2025-04-13 09:37 | Outpatient (BNVA) | payer OTHER, SELFPAY | PROVIDERS: PCP Internal Medicine; Visit Provider Internal Medicine | DX: F11.21 Opioid dependence, in remission (principal); N20.0 Calculus of kidney; Z79.899 Other long term (current) drug therapy | CPT/HCPCS: 96372; J0578 ==

== ENCOUNTER 2025-05-11 09:31 | Outpatient (AMB) | payer OTHER, SELFPAY ==
--- NOTE | 2025-05-11 09:47 | A.OFFVIS_ITS ---
Vital Signs 05/11/25 09:54 Height 5 ft 4 in Weight 186 lb BMI 31.9 Pulse 69 Pulse Source Pulse Oximeter Pulse Oximetry (%) 97 Oxygen Delivery Method Room Air Intake Visit Reasons: MAT/ Injection Allergies moxifloxacin Allergy (Verified 05/11/25 09:53) Vomiting HPI HPI MAT/ Injection: Details: Document left arm She is doing well and has no complaints PFSH Medical History Opioid use disorder Nephrolithiasis Social History Alcohol intake: never Comment: PT LEFT AMA. Patient Tobacco Use Status: Never used Tobacco Substance Use Type: Marijuana service: No Current occupational status: employed Review of Systems Const All systems reviewed & are unremarkable except as noted in HPI and below Physical Exam Vital Signs: Last Vital Signs Pulse 69 05/11/25 09:54 Pulse Ox 97 05/11/25 09:54 Oxygen Delivery Method Room Air 05/11/25 09:54 BMI result Body Mass Index 31.9 Const General: cooperative Office Meds Sublocade 300 mg/1.5 mL solution,extended release subcutaneous syringe Performing Provider: Sarah Heredia MD Performing Location: [facility] Documented (not given) by: Sarah Heredia MD on 05/11/25 14:50 Reason Not Given: No Longer Necessary buprenorphine 128 mg/0.36 mL solution,ext.rel.subcutaneous syringe Performing Provider: Sarah Heredia MD Performing Location: [facility] Administered by: Sarah Heredia MD on 05/11/25 14:50 Dose Route Admin Location Dispensed Lot Number Expiration Date NDC Bridge Construction Inspector 128 mg subcut left arm 0.36 mL [id number] 04/14/27 50794-608-99 [employer]. Total Dispensed Waste 0.36 mL 0 % Results AMB Test Urine AMB Test Urine Negative Last Edit by Suraj Fiore CMA on 05/11/25 09:54 Results Reviewed Results Reviewed: Laboratory Last Values Tst Clinic Negative 05/11/25 09:48 Assessment & Plan Assessment & Plan (1) Opioid use disorder, moderate, in sustained remission, dependence: Comment: She is doing well with Brixadi Code(s): F11.21 - Opioid dependence, in remission Category: Medical Plan: Continue Brixadi See as scheduled next month. Orders: Orders AMB HCG Urine Test 05/11/25 Z32.02 - Encounter for test, result negative AMB Buprenorphine Injection - Patient Supplied 05/11/25 F11.21 - Opioid dependence, in remission Medications: Refilled buprenorphine ER (Brixadi Monthly) 128 mg (0.36 mL) subcut Q28D 0.72 mL 5RF 30 days Coding Level of Care Code Est Pt Level 3 (50108) Diagnoses Opioid use disorder, moderate, in sustained remission, dependence F11.21
[2025-05-11 09:54] VITALS: PULSE 69; O2SAT 97; BMI 31.9
--- OUTSIDE RECORDS SUMMARY | 2025-05-11 09:56 | XMS_ITS | Clinical Summary ---
Author Organization [employer] Address [address] [place] [address] 7 [place] [address] Care Team Providers Care Tool Maker Apprentice Name Role Phone Cecy Junior DO Primary Care Provider Allergies Active Allergy Reactions Criticality Noted Date Comments Moxifloxacin 04/05/2023 Other reaction(s): vomiting Paroxetine 04/05/2023 Other reaction(s): worsened anxiety Medications buprenorphine ER (Sublocade) 100 mg/0.5mL injection Inject 1 each under the skin every month to absorb continually. proscribed by [facility] Active sertraline (Zoloft) 50 MG tablet Take [...] like to quit. 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 She does smoke marijuana nightly after work. She was recently started on Mirtazapine for night. She is getting back to therapy with [facility]. 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 on file Not on sofia e Last Filed Vital Signs Vital Sign Reading Time Taken Comments Blood Pressure 120/80 09/05/2024 10:58 AM EDT Pulse 75 09/05/2024 10:58 AM EDT Temperature 36.6 C (97.9 F) 09/05/2024 10:58 AM EDT Respiratory Rate 16 04/09/2023 10:4 [...] Years) and At-Risk Patients (6 to 49) Years Aged Out No longer eligible based on [...] LAB SYSTEM CHOLESTEROL, TOTAL 190 (<200) MG/DL [facility] HDL CHOL 48 (>39) MG/DL [facility] NON HDL CHOLESTEROL (CALC) 142 (<160) MG/DL [facility] TRIGLYCERIDE 71 (<150) MG/DL [facility] 03/31/2021 10:5 0 AM EDT Amanda Velazquez[address]ma [address] BAILIFF LAB BLOOD ORDERABLES Bernice augustin Result [facility] [address] from Last 3 Months or Most Recently Relevant to Health Maintenance Insurance , [address] [place] [address] Care Teams Tool Maker Apprentice Relationship Specialty Start Date End Date Cecy Junior DO [address] [place] [id number] PCP - General Family Medicine 08/10/24
== END 2025-05-11 10:09 | disposition home or self-care (01) ==
LOC: HO.HCC 09:32
PROVIDERS: PCP Internal Medicine; Visit Provider Internal Medicine
DX: F11.21 Opioid dependence, in remission (principal)
CPT/HCPCS: 99213

== ENCOUNTER → 2025-05-11 09:31 | Outpatient (BNVA) | payer OTHER, SELFPAY | PROVIDERS: PCP Internal Medicine; Visit Provider Internal Medicine | DX: F11.21 Opioid dependence, in remission (principal); Z32.02 Encounter for pregnancy test, result negative | CPT/HCPCS: 81025; 96372; J0578 ==

== ENCOUNTER 2025-06-07 09:32 | Outpatient (AMB) | payer OTHER, SELFPAY ==
--- NOTE | 2025-06-07 09:36 | AM.OFFVISNUR ---
Vital Signs 06/07/25 09:39 Height 5 ft 4 in Weight 82.1 kg BMI 31.1 BP 120/80 Pulse 78 Pulse Oximetry (%) 98 Intake Visit Reasons: Injection Allergies moxifloxacin Allergy (Verified 06/07/25 09:40) Vomiting Nursing Note Fabi presents today for her q month Brixadi injection. Fabi is alert, oriented, cooperative with care and presents with appropriate affect. She reports no negative symptoms and is stable in recovery. Fabi reported that her job is going well and was excited that she and her are going on a cruise in September for 7 days. Fabi reports no issues with her injections and will follow up with the office in one month for her next injection. Office Meds buprenorphine 128 mg/0.36 mL solution,ext.rel.subcutaneous syringe Performing Provider: Sarah Heredia MD Performing Location: [facility] Administered by: Gabriella Maki RN on 06/07/25 11:47 Dose Route Admin Location Dispensed Lot Number Expiration Date [facility] Mechanical Drafter 128 mg subcut RA 0.36 mL [id number] 04/14/27 39071-670-33 [employer]. Total Dispensed Waste 0.36 mL 0 % Comments: Pt here for Brixadi 128 mg injection. Pt denies any concern with previous injection and tolerated injection well. Educated on signs and symptoms of infection and encouraged to call [facility] with any related questions or concerns, pt verbalized understanding. Follow-up scheduled in 4 weeks for next injection. Assessment & Plan Assessment & Plan Orders: Orders AMB Buprenorphine Injection - Patient Supplied Today F11.21 - Opioid dependence, in remission Coding
[2025-06-07 09:39] VITALS: BP 120/80; PULSE 78; O2SAT 98; BMI 31.1
--- OUTSIDE RECORDS SUMMARY | 2025-06-07 10:12 | XMS_ITS | Clinical Summary ---
Author Organization [employer] Address [address] [place] [address] 7 [place] [address] Care Team Providers Care Devulcanizer Loader Name Role Phone eCcy Junior DO Primary Care Provider [phone] Allergies Active Allergy Reactions Criticality Noted Date Comments Moxifloxacin 04/05/2023 Other reaction(s): vomiting Paroxetine 04/05/2023 Other reaction(s): worsened anxiety Medications buprenorphine ER (Sublocade) 100 mg/0.5mL injection Inject 1 each under the skin every month to absorb continually. proscribed by [facility] Active sertraline (Zoloft) 50 MG tablet Take [...] like to quit. 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 She does smoke marijuana nightly after work. She was recently started on Mirtazapine for night. She is getting back to therapy with [facility]. 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 Not on file Not on file Not [...] Comments HIV Screening 1990 Disability Screening 1990 HPV Vaccines (1 - 3-dose series) 2005 Hepatitis C Screening 01/26/2008 Hepatitis B Vaccines (1 of 3 - 19+ 3-dose series) 2009 Pap Smear 2011 Cervical Cancer Screening 01/26/2020 HPV/Cotest 01/26/2020 Influenza Vaccine (#1) 2025 4, 08/31/2023, 08/17/2018, Additional history exists Alcohol/Substance Use Screening 09/05/2025 09/05/2024 Depression Screening [...] 2065 COVID-19 Vaccine Completed 07/22/2024, 04/2021, 11/24/2020 HIB Vaccines Aged Out No longer eligi [...] SYSTEM 03/31/2021 10:5 0 AM EDT Amanda Randolph PAY AGENT LAB BLOOD ORDERABLES Bernice l Result [facility] [address] from Last 3 Months or Most Recently Relevant to Health Maintenance Insurance , [address] [place] [address] Care Teams Devulcanizer Loader Relationship Specialty Start Date End Date Cecy Junior DO [address] [place] [address] PCP - General Family Medicine 08/10/24
--- OUTSIDE RECORDS SUMMARY | 2025-06-07 10:12 | XMS_ITS | Clinical Summary ---
Author Organization [facility] it Address [address] [place] [address] Care Team Providers Care Armored Vehicle Officer Name Role Phone ZuleykaBecky Amada Primary Care [...] Cervical Cancer Screening: P ap Smear 2011 COVID-19 Vaccine (1 - 2023-2 5 season) 2024 Depression Screening 11/15/2024 DTaP,Tdap,and Td Vaccines (2 - Td or Tdap) 01/13/2025 01/13/2015 Influenza Vaccine (#1) 2025 8, 07/30/2013 HIB Vaccines Aged Out No longer [...] 5 Years) and At-Risk Patients (6 to 49 Years) Aged Out No longer eligible b ased on patient's age to complete this topic RSV Immunization Patients Under 20 months Aged Out No longer eligible b ased on patient's age to complete this topic Varicella Vaccines Aged Out No longer eligible based on patient's age to complete this topic Care Teams Armored Vehicle Officer Relationship Specialty Start Date End Date Amada Drake DO PCP - General Internal Medicine 10/24/13
--- OUTSIDE RECORDS SUMMARY | 2025-06-07 10:12 | XMS_ITS ---
Author Name [facility] Organization Unknown Care Team Organization Name Specialty Phone Email Start Date End Da te [facility] Termed, PROVIDER Primary Care 09/22/202206/15
== END 2025-06-07 10:15 | disposition home or self-care (01) ==
LOC: HO.HCC 09:33
PROVIDERS: PCP Internal Medicine
DX: F11.21 Opioid dependence, in remission (principal)

== ENCOUNTER → 2025-06-07 09:32 | Outpatient (BNVA) | payer OTHER, SELFPAY | PROVIDERS: PCP Internal Medicine | DX: F11.21 Opioid dependence, in remission (principal) | CPT/HCPCS: 96372; J0578 ==

== ENCOUNTER 2025-07-05 09:28 | Outpatient (AMB) | payer OTHER, SELFPAY ==
--- NOTE | 2025-07-05 09:39 | AM.OFFVISNUR ---
Vital Signs 07/05/25 09:42 Height 5 ft 4 in Weight 83.915 kg BMI 31.8 BP 110/68 Pulse 68 Pulse Oximetry (%) 98 Intake Visit Reasons: Injection Allergies moxifloxacin Allergy (Verified 06/07/25 09:40) Vomiting Nursing Note Fabi presents today for her q month Brixadi injection. Fabi is alert, oriented, cooperative with care and presents with appropriate affect. She reports no negative symptoms or issue with her previous injections. Fabi is in good spirits and glad to have the day off; getting more excited for her cruise- follow up appointment in one month for her next injection. Will mail ID card to her for Brixadi. Office Meds buprenorphine 128 mg/0.36 mL solution,ext.rel.subcutaneous syringe Performing Provider: Sarah Heredia MD Performing Location: [facility] Administered by: Gabriella Maki RN on 07/05/25 09:59 Dose Route Admin Location Dispensed Lot Number Expiration Date [facility] Shipping Agent 128 mg subcut JIMBO 0.36 mL [id number] 05/14/27 36492-926-91 [employer]. Total Dispensed Waste 0.36 mL 0 % Comments: Pt here for Brixadi mg injection. Pt denies any concern with previous injections and tolerated injection well. Educated on signs and symptoms of infection and encouraged to call [facility] with any related questions or concerns, pt verbalized understanding. Follow-up scheduled in 4 weeks for next injection. Assessment & Plan Assessment & Plan Orders: Orders AMB Buprenorphine Injection - Patient Supplied Today F11.21 - Opioid dependence, in remission Coding
[2025-07-05 09:42] VITALS: BP 110/68; PULSE 68; O2SAT 98; BMI 31.8
--- OUTSIDE RECORDS SUMMARY | 2025-07-05 10:37 | XMS_ITS | Clinical Summary ---
Author Organization [facility] it Address [address] [place] [address] Care Team Providers Care Robotics Mechanic Name Role Phone ZuleykaBecky Amada Primary Care [...] age to complete this topic Care Teams Robotics Mechanic Relationship Specialty Start Date End Date Amada Drake DO PCP - General Internal Medicine 10/24/13
--- OUTSIDE RECORDS SUMMARY | 2025-07-05 10:37 | XMS_ITS | Clinical Summary ---
Author Organization [employer] Address [address] [place] [address] 7 [place] [address] Care Team Providers Care Windlasser Name Role Phone Cecy Junior DO Primary Care Provider [phone] Allergies Active Allergy Reactions Criticality Noted Date Comments Moxifloxacin 04/05/2023 Other reaction(s): vomiting Paroxetine 04/05/2023 Other reaction(s): worsened anxiety Medications buprenorphine ER (Sublocade) 100 mg/0.5mL injection Inject 1 each under the skin every month to absorb continually. proscribed by [facility] Active sertraline (Zoloft) 50 MG tablet Take [...] to quit. 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 She does smoke marijuana nightly after work. She was recently started on Mirtazapine for night. She is getting back to therapy with [facility]. 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 Not on file Not [...] LAB SYSTEM HDL CHOL 48 (>39) MG/DL [facility] NON HDL CHOLESTEROL (CALC) 142 (<160) MG/DL [facility] TRIGLYCERIDE 71 (<150) MG/DL [facility] 03/31/2021 10:5 0 AM EDT Amanda Randolph ORGAN PIPE FINISHER LAB BLOOD ORDERABLES Bernice l Result [facility] [address] from Last 3 Months or Most Recently Relevant to Health Maintenance Insurance , [address] [place] [address] Care Teams Windlasser Relationship Specialty Start Date End Date Cecy Junior DO [address] [place] [address] PCP - General Family Medicine 08/10/24
== END 2025-07-05 09:55 | disposition home or self-care (01) ==
LOC: HO.HCC 09:28
PROVIDERS: PCP Internal Medicine
DX: F11.21 Opioid dependence, in remission (principal)

== ENCOUNTER → 2025-07-05 09:28 | Outpatient (BNVA) | payer OTHER, SELFPAY | PROVIDERS: PCP Internal Medicine | DX: F11.21 Opioid dependence, in remission (principal) | CPT/HCPCS: 96372; J0578 ==

== ENCOUNTER 2025-08-02 08:42 | Outpatient (AMB) | payer OTHER, SELFPAY ==
--- NOTE | 2025-08-02 08:46 | AM.OFFVISNUR ---
Vital Signs 08/02/25 08:49 Height 5 ft 4 in Weight 82.554 kg BMI 31.2 BP 110/72 Pulse 82 Pulse Oximetry (%) 97 Intake Visit Reasons: Injection Allergies moxifloxacin Allergy (Verified 08/02/25 08:49) Vomiting Nursing Note Fabi is present today for her q month Brixadi 128 mg injection. Fabi is alert, oriented, cooperative with care and presents with appropriate affect. She reports no negative symptoms or issue with her previous injections. Looking forward to taking friends children trick or treating. Brixadi ID wallet card given. Follow up in 4 weeks for the next injection. Office Meds buprenorphine 128 mg/0.36 mL solution,ext.rel.subcutaneous syringe Performing Provider: Sarah Heredia MD Performing Location: [facility] Administered by: Gabriella Maki RN on 08/02/25 09:09 Dose Route Admin Location Dispensed Lot Number Expiration Date [facility] Bird Tender 128 mg subcut EZEQUIEL 0.36 mL [id number] 05/14/27 09881-381-48 [employer] [place]. Total Dispensed Waste 0.36 mL 0 % Comments: Pt here for Brixadi 128 mg injection. Pt denies any concern with previous injections and tolerated injection well. Educated on signs and symptoms of infection and encouraged to call [facility] with any related questions or concerns, pt verbalized understanding. Follow-up scheduled in 4 weeks for next injection. Assessment & Plan Assessment & Plan Orders: Orders AMB Buprenorphine Injection - Patient Supplied Today F11.21 - Opioid dependence, in remission Coding
[2025-08-02 08:49] VITALS: BP 110/72; PULSE 82; O2SAT 97; BMI 31.2
--- OUTSIDE RECORDS SUMMARY | 2025-08-02 09:58 | XMS_ITS | Clinical Summary ---
Author Organization [employer] Address [address] [place] [address] 7 [place] [address] Care Team Providers Care Supervisor Spring Up Name Role Phone Cecy Junior DO Primary Care Provider [phone] Allergies Active Allergy Reactions Criticality Noted Date Comments Moxifloxacin 04/05/2023 Other reaction(s): vomiting Paroxetine 04/05/2023 Other reaction(s): worsened anxiety Medications buprenorphine ER (Sublocade) 100 mg/0.5mL injection Inject 1 each under the skin every month to absorb continually. proscribed by [facility] Active sertraline (Zoloft) 50 MG [...] quit. 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 She does smoke marijuana nightly after work. She was recently started on Mirtazapine for night. She is getting back to therapy with [facility]. 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 Not on file Not [...] SYSTEM HDL CHOL 48 (>39) MG/DL [facility] NON HDL CHOLESTEROL (CALC) 142 (<160) MG/DL [facility] TRIGLYCERIDE 71 (<150) MG/DL [facility] 03/31/2021 10:5 0 AM EDT Amanda Randolph PIANO MECHANIC LAB BLOOD ORDERABLES Bernice l Result [facility] [address] from Last 3 Months or Most Recently Relevant to Health Maintenance Insurance , [address] [place] [address] Care Teams Supervisor Spring Up Relationship Specialty Start Date End Date Cecy Junior DO [address] [place] [address] PCP - General Family Medicine 08/10/24
--- OUTSIDE RECORDS SUMMARY | 2025-08-02 09:58 | XMS_ITS | Clinical Summary ---
Author Organization [facility] it Address [address] [place] [address] Care Team Providers Care Trimming Cutter Name Role Phone ZuleykaEvans Penaabela Primary Care Pro vider Surgical History Surgery [...] Cervical Cancer Screening: P ap Smear 2011 Depression Screening 11/15/2024 DTaP,Tdap,and Td Vaccines (2 - Td or Tdap) 01/13/2025 01/13/2015 COVID-19 Vaccine (1 - 2023-2 5 season) 2025 Influenza Vaccine (#1) 2025 8, 07/30/2013 RSV Immunization Adult Patients (1 - 1-dose 75+ series) 2065 HIB Vaccines Aged Out No longer eligi [...] age to complete this topic Care Teams Trimming Cutter Relationship Specialty Start Date End Date Amada Drake DO PCP - General Internal Medicine 10/24/13
== END 2025-08-02 09:09 | disposition home or self-care (01) ==
LOC: HO.HCC 08:42
PROVIDERS: PCP Internal Medicine
DX: F11.21 Opioid dependence, in remission (principal)

== ENCOUNTER → 2025-08-02 08:42 | Outpatient (BNVA) | payer OTHER, SELFPAY | PROVIDERS: PCP Internal Medicine | DX: F11.21 Opioid dependence, in remission (principal); Z79.899 Other long term (current) drug therapy | CPT/HCPCS: 96372; J0578 ==

== ENCOUNTER 2025-08-30 08:38 | Outpatient (AMB) | payer OTHER, SELFPAY ==
--- NOTE | 2025-08-30 08:39 | AM.OFFVISNUR ---
Vital Signs 08/30/25 08:43 BP 128/70 Pulse 84 Pulse Oximetry (%) 97 Intake Visit Reasons: Injection Allergies moxifloxacin Allergy (Verified 08/30/25 08:44) Vomiting Nursing Note Fabi is present today for her q month Brixadi 128 mg injection. Fabi is alert, oriented, cooperative with care and presents with appropriate affect. She reports no negative symptoms or issue with her previous injections. Looking forward to trip coming up in the first week of September. Follow up in 4 weeks for the next injection. Office Meds buprenorphine 128 mg/0.36 mL solution,ext.rel.subcutaneous syringe Performing Provider: Sarah Heredia MD Performing Location: [facility] Administered by: Gabriella Maki RN on 08/30/25 09:03 Dose Route Admin Location Dispensed Lot Number Expiration Date [facility] Evaluation Assistant 128 mg subcut JIMBO 0.36 mL [id number] 05/14/28 79129-353-87 [employer]. Total Dispensed Waste 0.36 mL 0 % Comments: Pt here for Brixadi 128 mg injection. Pt denies any concern with previous injections and tolerated injection well. Educated on signs and symptoms of infection and encouraged to call [facility] with any related questions or concerns, pt verbalized understanding. Follow-up scheduled in 4 weeks for next injection. Assessment & Plan Assessment & Plan Orders: Orders AMB Buprenorphine Injection - Patient Supplied Today F11.21 - Opioid dependence, in remission Medications: Discontinued buprenorphine-naloxone 8-2 mg (Suboxone) Discontinued Reason: Patient Completed Course 1 film buccal DAILY 30 ea 0RF buprenorphine ER (Brixadi Monthly) Discontinued Reason: Patient Completed Course 128 mg (0.36 mL) subcut Q28D 0.36 mL 5RF Coding
[2025-08-30 08:43] VITALS: BP 128/70; PULSE 84; O2SAT 97
--- OUTSIDE RECORDS SUMMARY | 2025-08-30 09:10 | XMS_ITS | Clinical Summary ---
Author Organization [employer] Address [address] [place] [address] 7 [place] [address] Care Team Providers Care Education Program Specialist Name Role Phone Cecy Junior DO Primary Care Provider [phone] Allergies Active Allergy Reactions Criticality Noted Date Comments Moxifloxacin 04/05/2023 Other reaction(s): vomiting Paroxetine 04/05/2023 Other reaction(s): worsened anxiety Medications buprenorphine ER (Sublocade) 100 mg/0.5mL injection Inject 1 each under the skin every month to absorb continually. proscribed by [facility] Active sertraline (Zoloft) 50 MG tablet [...] to quit. 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 She does smoke marijuana nightly after work. She was recently started on Mirtazapine for night. She is getting back to therapy with [facility]. 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 Not [...] LAB SYSTEM HDL CHOL 48 (>39) MG/DL [facility] NON HDL CHOLESTEROL (CALC) 142 (<160) MG/DL [facility] TRIGLYCERIDE 71 (<150) MG/DL [facility] 03/31/2021 10:5 0 AM EDT Amanda Randolph BOAT OUTBOARD ENGINE MECHANIC LAB BLOOD ORDERABLES Bernice l Result [facility] [address] from Last 3 Months or Most Recently Relevant to Health Maintenance Insurance , [address] [place] [address] Care Teams Education Program Specialist Relationship Specialty Start Date End Date Cecy Junior DO [address] [place] [address] PCP - General Family Medicine 08/10/24
--- OUTSIDE RECORDS SUMMARY | 2025-08-30 09:10 | XMS_ITS | Clinical Summary ---
Author Organization [facility] it Address [address] [place] [address] Care Team Providers Care Investor Relations Director Name Role Phone Zuleykanievesbaljeet Amada Primary Care Pro vider Surgical History [...] Cervical Cancer Screening: P ap Smear 2011 HPV Vaccines (1 - 3-dose SCD M series) 2017 Depression Screening 11/15/2024 DTaP,Tdap,and Td Vaccines (2 [...] age to complete this topic Care Teams Investor Relations Director Relationship Specialty Start Date End Date mAada Drake DO PCP - General Internal Medicine 10/24/13
== END 2025-08-30 09:15 | disposition home or self-care (01) ==
LOC: HO.HCC 08:38
PROVIDERS: PCP Internal Medicine
DX: F11.21 Opioid dependence, in remission (principal)

== ENCOUNTER → 2025-08-30 08:38 | Outpatient (BNVA) | payer OTHER, SELFPAY | PROVIDERS: PCP Internal Medicine | DX: F11.21 Opioid dependence, in remission (principal); Z79.899 Other long term (current) drug therapy | CPT/HCPCS: 96372; J0578 ==

== ENCOUNTER 2025-10-02 08:46 | Outpatient (AMB) | payer OTHER, SELFPAY ==
--- NOTE | 2025-10-02 08:07 | AM.OFFVISNUR ---
Vital Signs 10/02/25 08:52 BP 110/72 Pulse 80 Pulse Oximetry (%) 97 Intake Visit Reasons: Injection Allergies moxifloxacin Allergy (Verified 10/02/25 08:53) Vomiting Nursing Note Fabi is present today for her every 4 week Brixadi 128 mg injection. Fabi is alert, oriented, cooperative with care and presents with appropriate affect. She reports no negative symptoms or issue with her previous injections and tolerated the injection well. Fabi just returned from her cruise yesterday and is in good spirits. Follow up scheduled in 4 weeks for the next injection. Office Meds buprenorphine 128 mg/0.36 mL solution,ext.rel.subcutaneous syringe Performing Provider: Sarah Heredia MD Performing Location: [facility] Administered by: Gabriella Maki RN on 10/02/25 09:27 Dose Route Admin Location Dispensed Lot Number Expiration Date [facility] Medication Technician 128 mg subcut EZEQUIEL 0.36 mL [id number] 07/15/27 00480-326-28 [employer]. Total Dispensed Waste 0.36 mL 0 % Comments: Pt here for Brixadi 128 mg injection. Pt denies any concern with previous injections and tolerated injection well. Educated on signs and symptoms of infection and encouraged to call [facility] with any related questions or concerns, pt verbalized understanding. Follow-up scheduled in 4 weeks for next injection. Assessment & Plan Assessment & Plan Orders: Orders AMB Buprenorphine Injection - Patient Supplied Today F11.21 - Opioid dependence, in remission Coding
[2025-10-02 08:52] VITALS: BP 110/72; PULSE 80; O2SAT 97
== END 2025-10-02 09:24 | disposition home or self-care (01) ==
LOC: HO.HCC 08:46
PROVIDERS: PCP Internal Medicine
DX: F11.21 Opioid dependence, in remission (principal)

== ENCOUNTER → 2025-10-02 08:46 | Outpatient (BNVA) | payer OTHER, SELFPAY | PROVIDERS: PCP Internal Medicine | DX: F11.21 Opioid dependence, in remission (principal) | CPT/HCPCS: 96372; J0578 ==

== ENCOUNTER 2025-11-05 16:34 | Outpatient (AMB) | payer OTHER, SELFPAY ==
--- NOTE | 2025-11-01 08:32 | AM.OFFVISNUR ---
Intake Visit Reasons: Injection Allergies moxifloxacin Allergy (Verified 10/02/25 08:53) Vomiting Coding
--- NOTE | 2025-11-05 16:36 | AM.OFFVISNUR ---
Vital Signs 11/05/25 16:40 Height 5 ft 4 in Weight 82.554 kg BMI 31.2 BP 110/66 Blood Pressure Location Lt brachial Position Sitting Pulse 95 Pulse Source Pulse Oximeter Pulse Oximetry (%) 98 Oxygen Delivery Method Room Air Intake Visit Reasons: Injection Allergies moxifloxacin Allergy (Verified 10/02/25 08:53) Vomiting Nursing Note Fabi is present today for her every 4 week Brixadi 128 mg injection. Fabi is alert, oriented, cooperative with care and presents with appropriate affect. She reports no negative symptoms between injections; continues to report stability in recovery. Looking forward to the holiday. Follow up for 4 weeks for the next injection. Office Meds buprenorphine 128 mg/0.36 mL solution,ext.rel.subcutaneous syringe Performing Provider: Sarah Heredia MD Performing Location: [facility] Administered by: Gabriella Maki RN on 11/05/25 16:54 Dose Route Admin Location Dispensed Lot Number Expiration Date [facility] Assistant Wrestling Coach 128 mg subcut JIMBO 0.36 mL [id number] 11/14/27 96163-661-98 [employer]. Total Dispensed Waste 0.36 mL 0 % Comments: Pt here for Brixadi 128 mg injection. Pt denies any concern with previous injections and tolerated injection well. Educated on signs and symptoms of infection and encouraged to call [facility] with any related questions or concerns, pt verbalized understanding. Follow-up scheduled in 4 weeks for next injection. Assessment & Plan Assessment & Plan Orders: Orders AMB Buprenorphine Injection - Patient Supplied Today F11.21 - Opioid dependence, in remission Coding
[2025-11-05 16:40] VITALS: BP 110/66; PULSE 95; O2SAT 98; BMI 31.2
--- OUTSIDE RECORDS SUMMARY | 2025-11-05 18:53 | XMS_ITS | Clinical Summary ---
Author Organization [employer] Address [address] [place] [address] [address] [place] [address] Care Team Providers Care Lathe Mechanic Name Role Phone Cecy Junior DO Primary Care Provider [phone] Allergies Active Allergy Reactions Criticality Noted Date Comments Moxifloxacin 04/05/2023 Other reaction(s): vomiting Paroxetine 04/05/2023 Other reaction(s): worsened anxiety Medications buprenorphine ER (Sublocade) 100 mg/0.5mL injection Inject 1 each under the skin every month to absorb continually. proscribed by [facility] Active sertraline (Zoloft) 50 MG tablet Take [...] like to quit. 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 She does smoke marijuana nightly after work. She was recently started on Mirtazapine for night. She is getting back to therapy with [facility]. 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 Not [...] Comments HIV Screening 1990 Disability Screening 1990 Alcohol/Substance Use Screening 2002 Family Planning (PISQ) 2005 HPV Vaccines (1 - 3-dose series) 2005 Hepatitis C Screening 01/26/2008 Hepatitis B Vaccines (1 of 3 - 19+ 3-dose series) 2009 Pap Smear 2011 Cervical Cancer Screening 01/26/2020 HPV/Cotest 01/26/2020 COVID-19 Vaccine ( season) 2025 07/22/2024, 12/21/2020, 11/24/2020 Influenza Vaccine (#1) 2025 4, 08/31/2023, 08/17/2018, Additional history exists Depression Screening 09/05/2025 09/05/2024, 09/05/20 24 SDOH Screening 09/05/2025 09/05/2024 Tobacco Screening 09/05/2025 09/05/2024 Lipid Panel 03/31/2026 03/31/2021 DTaP/Tdap/Td Vaccines (3 - Td or Tdap) 09/15/2031 09/15/2021, 01/13/2015 Zoster Vaccines (1 of 2) 01/26/2040 RSV Patients and Patients Aged 60 years or older (1 - 1-dose 75+ series) 2065 HIB [...] 03/31/2021 10:5 0 AM EDT Amanda Randolph FINAL ARMATURE TESTER LAB BLOOD ORDERABLES Bernice l Result [facility] [address] from Last 3 Months or Most Recently Relevant to Health Maintenance Insurance , [address] [place] [address] Care Teams Lathe Mechanic Relationship Specialty Start Date End Date Cecy Junior DO [address] [place] [address] PCP - General Family Medicine 08/10/24
--- OUTSIDE RECORDS SUMMARY | 2025-11-05 18:53 | XMS_ITS | Clinical Summary ---
Author Organization [facility] it Address [address] [place] [address] Care Team Providers Care Traffic Rate Analyst Name Role Phone Zuleykanievesbaljeet Amada Primary Care [...] Years Used Date Smoking Tobacco: Former Cigarettes 0 Q uit: 11/17/2018 Smokeless Tobacco: Never Alcohol Use Standard Drinks/Week Comments Yes 0 (1 standard drink = 0.6 oz pur e alcohol) Comments Unknown Sex and Gender Information Value Date Recorded Sex Assigned at Not on file Legal Sex Female 8:48 AM EST Gender Identity Not on file Sexual Orientation Not on file Plan of Treatment Health Maintenance Due Date Last Done Comments Hepatitis B Vaccines (1 of 3 - 19+ 3-dose series) 2009 Cervical Cancer Screening: P ap Smear 2011 HPV Vaccines (1 - 3-dose SCD M series) 2017 Depression Screening 11/15/2024 DTaP,Tdap,and Td Vaccines (2 - Td or Tdap) 01/13/2025 01/13/2015 COVID-19 Vaccine (1 - 2024-2 6 season) 2025 Influenza Vaccine (#1) 2025 8, [...] age to complete this topic Care Teams Traffic Rate Analyst Relationship Specialty Start Date End Date Amada Drake DO PCP - General Internal Medicine 10/24/13
== END 2025-11-05 16:52 | disposition home or self-care (01) ==
LOC: HO.HCC 16:34
PROVIDERS: PCP Internal Medicine
DX: F11.21 Opioid dependence, in remission (principal)

== ENCOUNTER → 2025-11-05 16:34 | Outpatient (BNVA) | payer OTHER, SELFPAY | PROVIDERS: PCP Internal Medicine | DX: F11.21 Opioid dependence, in remission (principal) | CPT/HCPCS: 96372; J0578 ==